=== PATIENT | male | born 1985 | race African-American/Black ===

== ENCOUNTER 2019-04-03 07:36 | Inpatient (IN) | payer OTHER ==
[2019-04-03] MEDS ORDERED: SODIUM CHLORIDE 0.9% 1,000 ML IV STA (08:19)
[2019-04-03] MEDS ORDERED: ONDANSETRON 4 MG/2 ML VIAL IVP STA (08:19)
[2019-04-03 08:49] LABS: Basophils # (A) 0.1 k/uL (0-0.2); Basophils % (A) 1 %; Eosinophils # (A) 0.2 k/uL (0-0.7); Eosinophils % (A) 3 %; HCT 25.3 % (39.0-53.0); HGB 8.7 gm/dL (13.0-17.5); Lymphocytes # (A) 1.5 k/uL (1.0-4.8); Lymphocytes % (A) 27 %; MCH 27.2 pg (25.0-35.0); MCHC 34.2 g/dL (31.0-37.0); MCV 79.8 fL (80.0-100.0); Mean Platelet Volume 7.2; Monocytes # (A) 0.5 k/uL (0-1.0); Monocytes % (A) 10 %; Neutrophils % (A) 56 %; Platelet Count 199 k/uL (150-450); RBC 3.18 m/uL (4.30-5.90); RDW 14.3 % (11.5-15.5); WBC 5.4 k/uL (3.8-10.6)
[2019-04-03 09:05] LABS: Albumin 3.5 g/dL (3.5-5.0); Calcium 6.9 mg/dL (8.4-10.2); Potassium 4.4 mmol/L (3.5-5.1); Total Bilirubin 0.2 mg/dL (0.2-1.3); Total Protein 8.2 g/dL (6.3-8.2)
--- NOTE | 2019-04-03 10:00 | XR ---
KUB and chest x-ray HISTORY: Hypertension, nausea and abdominal pain Frontal KUB is submitted on 2 images, correlation chest x-ray same day There are calcifications within the pelvis which may be related to vas deferens. Probable phleboliths also noted. There are air-fluid levels without bowel distention. No pneumoperitoneum. Lungs are clear. Heart is enlarged. No pneumothorax or pleural effusion. IMPRESSION: Findings may be due to enteritis or ileus. Cardiomegaly.
--- NOTE | 2019-04-03 13:04 | ED ---
General Adult HPI - General Chief complaint: Recheck/Abnormal Lab/Rx Stated complaint: elevated BP Time Seen by Provider: 04/03/19 08:05 Source: patient, family, RN notes reviewed, old records reviewed Mode of arrival: ambulatory Limitations: no limitations - History of Present Illness Initial comments: This is a 33-year-old male who is from out of town who presents with complaints of elevated blood pressure. He also states he generally does not feel well potentially nauseated. No overt chest pain no overt fevers chills or sweats he did have peripheral edema which his family states is improved the. No cough or phlegm production no other modifying factors at this time - Related Data Home Medications Medication Instructions Recorded Confirmed Aspirin 81 mg PO DAILY 04/03/19 04/03/19 Atorvastatin Calcium [Lipitor] 40 mg PO HS 04/03/19 04/03/19 Bumetanide [BUMEX] 4 mg PO BID 04/03/19 04/03/19 Carvedilol [Coreg] 25 mg PO BID 04/03/19 04/03/19 Dovato 50-300 Mg 1 tab PO DAILY 04/03/19 04/03/19 Ergocalciferol [Vitamin D2] 50,000 unit PO Q7D 04/03/19 04/03/19 Glucagon Emergency Kit 1 mg IM ONCE PRN 04/03/19 04/03/19 Glucose 1 Gram Chew 1 gram PO TID PRN 04/03/19 04/03/19 Insulin Glargine,Hum.rec.anlog 12 unit SQ DAILY 04/03/19 04/03/19 [Basaglar Kwikpen U-100] Insulin Lispro [Admelog Solostar] See Protocol SQ AC-SUPPER 04/03/19 04/03/19 NIFEdipine [Adalat cc] 90 mg PO Q12H 04/03/19 04/03/19 Omeprazole [PriLOSEC] 40 mg PO DAILY 04/03/19 04/03/19 Ondansetron Odt [Zofran Odt] 8 mg PO Q8HR PRN 04/03/19 04/03/19 SUMAtriptan SUCCINATE [Imitrex] 50 mg PO BID PRN 04/03/19 04/03/19 Sodium Bicarbonate Tab 1,950 mg PO BID 04/03/19 04/03/19 diphenhydrAMINE [Benadryl] 50 mg PO DAILY PRN 04/03/19 04/03/19 hydrALAZINE HCL [Apresoline] 100 mg PO TID 04/03/19 04/03/19 Allergies Allergy/AdvReac Type Severity Reaction Status Date / Time Penicillins Allergy Rash/Hives Verified 04/03/19 07:54 Review of Systems ROS Statement: Those systems with pertinent positive or pertinent negative responses have been documented in the HPI. ROS Other: All systems not noted in ROS Statement are negative. Past Medical History Past Medical History: Hypertension Additional Past Medical History / Comment(s): Anemia, renal failure, hiv History of Any Multi-Drug Resistant Organisms: None Reported Past Surgical History: No Surgical Hx Reported Past Psychological History: No Psychological Hx Reported Smoking Status: Never smoker Past Alcohol Use History: None Reported General Exam - General Exam Comments Initial Comments: This is a well-developed well-nourished awake alert oriented 3 male Limitations: no limitations General appearance: alert, lethargic Head exam: Present: atraumatic, normocephalic, normal inspection Eye exam: Present: normal appearance, PERRL, EOMI. Absent: scleral icterus, conjunctival injection, periorbital swelling ENT exam: Present: normal exam, mucous membranes moist Neck exam: Present: normal inspection. Absent: tenderness, meningismus, lymp hadenopathy Respiratory exam: Present: normal lung sounds bilaterally. Absent: respiratory distress, wheezes, rales, rhonchi, stridor Cardiovascular Exam: Present: regular rate, normal rhythm, normal heart sounds. Absent: systolic murmur, diastolic murmur, rubs, gallop, clicks GI/Abdominal exam: Present: soft, normal bowel sounds. Absent: distended, tenderness, guarding, rebound, rigid Extremities exam: Present: full ROM, normal capillary refill, pedal edema. Absent: tenderness, joint swelling, calf tenderness Back exam: Present: normal inspection Neurological exam: Present: alert, oriented X3, CN II-XII intact Psychiatric exam: Present: normal affect, normal mood Skin exam: Present: warm, dry, intact, normal color. Absent: rash Course Vital Signs 04/03/19 04/03/19 04/03/19 07:36 11:41 13:14 Temperature 98.0 F Pulse Rate 74 100 109 H Respiratory 16 18 18 Rate Blood Pressure 146/82 130/83 125/80 O2 Sat by Pulse 99 96 99 Oximetry Medical Decision Making - Medical Decision Making Did discuss findings with patient family as well as did review the materials from [facility] where the patient did leave AMA yesterday. He is agreed to stay in hospital today for evaluation by nephrology for dialysis. I did discuss case with Dr. Hansen. - Lab Data Result diagrams: 04/03/19 08:30 04/03/19 08:30 Lab Results 04/03/19 04/03/19 04/03/19 Range/Units 08:30 08:30 08:30 WBC 5.4 (3.8-10.6) k/uL RBC 3.18 L (4.30-5.90) m/uL Hgb 8.7 L (13.0-17.5) gm/dL Hct 25.3 L (39.0-53.0) % MCV 79.8 L (80.0-100.0) fL MCH 27.2 (25.0-35.0) pg MCHC 34.2 (31.0-37.0) g/dL RDW 14.3 (11.5-15.5) % Plt Count 199 (150-450) k/uL Neutrophils % 56 % Lymphocytes % 27 % Monocytes % 10 % Eosinophils % 3 % Basophils % 1 % Neutrophils # 3.0 (1.3-7.7) k/uL Lymphocytes # 1.5 (1.0-4.8) k/uL Monocytes # 0.5 (0-1.0) k/uL Eosinophils # 0.2 (0-0.7) k/uL Basophils # 0.1 (0-0.2) k/uL Sodium 136 L (137-145) mmol/L Potassium 4.4 (3.5-5.1) mmol/L Chloride 104 (98-107) mmol/L Carbon Dioxide 19 L (22-30) mmol/L Anion Gap 13 mmol/L BUN 81 H (9-20) mg/dL Creatinine 9.80 H* (0.66-1.25) mg/dL Est GFR (CKD-EPI)AfAm 7 (>60 ml/min/1.73 sqM) Est GFR (CKD-EPI)NonAf 6 (>60 ml/min/1.73 sqM) Glucose 140 H (74-99) mg/dL Calcium 6.9 L (8.4-10.2) mg/dL Magnesium 1.0 L (1.6-2.3) mg/dL Total Bilirubin 0.2 (0.2-1.3) mg/dL AST 29 (17-59) U/L ALT 18 L (21-72) U/L Alkaline Phosphatase 74 (38-126) U/L Creatine Kinase 761 H (55-170) U/L Troponin I 0.033 (0.000-0.034) ng/mL Total Protein 8.2 (6.3-8.2) g/dL Albumin 3.5 (3.5-5.0) g/dL Lipase 334 H (23-300) U/L Disposition Clinical Impression: Acute renal failure (ARF) Disposition: ADMITTED IP TO THIS [facility] Condition: Serious Referrals: Nonstaff,Physician [Primary Care Provider] - 1-2 days
[2019-04-03] MEDS ORDERED: NALOXONE 0.4 MG/ML 1 ML VIAL IV PRN (14:06)
[2019-04-03] MEDS ORDERED: diphenhydrAMINE 50 MG CAP PO PRN (14:09)
[2019-04-03] MEDS ORDERED: DEXTROSE 4 GM CHEWABLE PO PRN (14:09)
[2019-04-03] MEDS ORDERED: SUMAtriptan SUCCINATE 50 MG TAB PO PRN (14:09)
[2019-04-03 15:59] VITALS: BMI 24.4
[2019-04-03 16:38] LABS: Glucose,Whole Blood 304 mg/dL (75-99)
[2019-04-03] MEDS: INSULIN ASPART (NovoLOG) 100 UNIT/ML VIAL SQ SCH ×2 (17:11→21:14)
[2019-04-03] MEDS: NIFEdipine XL 90 MG TAB.ER.24 PO SCH ×2 (18:22→21:16)
[2019-04-03] MEDS: CARVEDILOL 12.5 MG TAB PO SCH (18:24)
[2019-04-03] MEDS: hydrALAZINE HCL 50 MG TAB PO SCH ×2 (18:24→21:16)
[2019-04-03] MEDS: SODIUM BICARBONATE TAB 650 MG TAB PO SCH (20:02)
[2019-04-03] MEDS: BUMETANIDE 2MG PO SCH (20:02)
[2019-04-03 20:04] LABS: Glucose,Whole Blood 62 mg/dL (75-99)
[2019-04-03 20:21] LABS: Glucose,Whole Blood 80 mg/dL (75-99)
[2019-04-03] MEDS: ATORVASTATIN 40 MG TAB PO SCH (21:16)
[2019-04-04 07:10] LABS: Glucose,Whole Blood 282 mg/dL (75-99)
[2019-04-04] MEDS: OMEPRAZOLE 40 MG PO SCH (07:31)
[2019-04-04] MEDS: BUMETANIDE 2MG PO SCH (07:31)
[2019-04-04] MEDS: DOVATO PO SCH (07:31)
[2019-04-04] MEDS: SODIUM BICARBONATE TAB 650 MG TAB PO SCH ×2 (07:31→20:08)
[2019-04-04] MEDS: ASPIRIN 81 MG PO SCH (07:31)
[2019-04-04] MEDS: CARVEDILOL 12.5 MG TAB PO SCH ×2 (07:32→17:40)
[2019-04-04] MEDS: hydrALAZINE HCL 50 MG TAB PO SCH ×3 (07:33→22:35)
[2019-04-04] MEDS: INSULIN ASPART (NovoLOG) 100 UNIT/ML VIAL SQ SCH ×5 (07:33→21:16)
[2019-04-04] MEDS: INSULIN DETEMIR (LEVEMIR) 100 UNIT/ML SYR SQ SCH ×2 (07:33→07:38)
[2019-04-04] MEDS: NIFEdipine XL 90 MG TAB.ER.24 PO SCH ×2 (07:33→22:28)
[2019-04-04] MEDS: ONDANSETRON ODT 8 MG TAB.RAPDIS PO PRN (07:43)
[2019-04-04] MEDS ORDERED: ERGOCALCIFEROL 50,000 UNIT CAP PO SCH (09:00)
--- NOTE | 2019-04-04 10:36 | P.HPIM ---
History of Present Illness H&P Date: 04/04/19 Chief Complaint: hypertension, nausea, fatigue Emilio Camargo is a 33 yo M with PMH of CKD4, HIV, HTN, HLD, anemia of CKD who presents for hypertension, fatigue, nausea and leg swelling. 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 He states he continued to take his bumex but his BP remained persistently elevated and he was having headaches so came back to the ED. He states he was diagnosed with renal disease and HIV around the same time approx 3 years ago and has been on his current bumex dose for a few months. He states his viral load is undetectable. In the ED initial BP 146/82, Cr 9.8, CK 760 Hgb 8.7. He was given IVF and admitted to medicine. Review of Systems All systems: negative Constitutional: Reports fatigue, Reports malaise, Denies chills, Denies fever Eyes: denies blurred vision, denies pain Ears, nose, mouth and throat: Denies headache, Denies sore throat Cardiovascular: Reports leg edema, Denies chest pain, Denies shortness of breath Respiratory: Denies cough Gastrointestinal: Reports loss of appetite, Reports nausea, Denies abdominal pain, Denies diarrhea, Denies vomiting Musculoskeletal: Denies myalgias Integumentary: Denies pruritus, Denies rash Neurological: Reports headaches, Denies numbness, Denies weakness Psychiatric: Denies anxiety, Denies depression Endocrine: Denies fatigue, Denies weight change Past Medical History Past Medical History: Diabetes Mellitus, GERD/Reflux, Hyperlipidemia, Hypertension, Renal Disease Additional Past Medical History / Comment(s): HIV diagnosed approximately one year ago, 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 History of Any Multi-Drug Resistant Organisms: None Reported Past Surgical History: No Surgical Hx Reported Additional Past Surgical History / Comment(s): Kidney biopsy without anesthesia. Additional Past Anesthesia/Blood Transfusion Reaction / Comment(s): Pt has never had anesthesia. He has had blood transfusion-no reaction. Past Psychological History: No Psychological Hx Reported Additional Psychological History / Comment(s): Pt resides in [place] and is her visiting family for 3 weeks-he has 2 more weeks left. Smoking Status: Never smoker Past Alcohol Use History: None Reported Past Drug Use History: None Reported - Past Family History Father History Unknown: Yes Mother Family Medical History: No Reported History Additional Family Medical History / Comment(s): Mother is healthy. Medications and Allergies Home Medications Medication Instructions Recorded Confirmed Type Aspirin 81 mg PO DAILY 04/03/19 04/03/19 History Atorvastatin Calcium [Lipitor] 40 mg PO HS 04/03/19 04/03/19 History Bumetanide [BUMEX] 4 mg PO BID 04/03/19 04/03/19 History Carvedilol [Coreg] 25 mg PO BID 04/03/19 04/03/19 History Dovato 50-300 Mg 1 tab PO DAILY 04/03/19 04/03/19 History Ergocalciferol [Vitamin D2] 50,000 unit PO Q7D 04/03/19 04/03/19 History Glucagon Emergency Kit 1 mg IM ONCE PRN 04/03/19 04/03/19 History Glucose 1 Gram Chew 1 gram PO TID PRN 04/03/19 04/03/19 History Insulin Glargine,Hum.rec.anlog 12 unit SQ DAILY 04/03/19 04/03/19 History [Breezyaglherman Shaw U-100] Insulin Lispro [Admelog Solostar] See Protocol SQ AC-SUPPER 04/03/19 04/03/19 History NIFEdipine [Adalat cc] 90 mg PO Q12H 04/03/19 04/03/19 History Omeprazole [PriLOSEC] 40 mg PO DAILY 04/03/19 04/03/19 History Ondansetron Odt [Zofran Odt] 8 mg PO Q8HR PRN 04/03/19 04/03/19 History SUMAtriptan SUCCINATE [Imitrex] 50 mg PO BID PRN 04/03/19 04/03/19 History Sodium Bicarbonate Tab 1,950 mg PO BID 04/03/19 04/03/19 History diphenhydrAMINE [Benadryl] 50 mg PO DAILY PRN 04/03/19 04/03/19 History hydrALAZINE HCL [Apresoline] 100 mg PO TID 04/03/19 04/03/19 History Allergies Allergy/AdvReac Type Severity Reaction Status Date / Time Penicillins Allergy Rash/Hives Verified 04/03/19 07:54 Physical Exam Vitals: Vital Signs Temp Pulse Pulse Resp BP BP Pulse Ox 04/04/19 07:19 98.2 F 104 H 17 145/85 94 L 04/04/19 02:09 97.8 F 87 17 151/90 98 04/03/19 18:57 98.5 F 98 16 155/89 99 04/03/19 16:39 98.4 F 96 16 140/86 99 04/03/19 14:43 104 H 17 134/93 98 04/03/19 13:14 109 H 18 125/80 99 04/03/19 11:41 100 18 130/83 96 Intake and Output 04/03/19 04/04/19 04/04/19 22:59 06:59 14:59 Intake Total 300 Balance 300 Intake: Oral 300 Other: Voiding Method Toilet # Voids 1 1 General: well nourished, well developed, NAD. Vitals reviewed Eyes: PERRL, EOMI, conjunctiva normal HENT: normocephalic, mucus membranes moist Neck: supple, no JVD Lungs: normal respiratory effort, no wheezes or rales CV: Regular rate and rhythm, no murmur. Peripheral pulses 2+. BLE with 2+ edema Abdomen: soft, nondistended, no organomegaly Lymph: no cervical or axillary LAD Skin: warm and dry. Neuro: A&Ox3, normal mood and affect Results CBC & Chem 7: 04/03/19 08:30 04/03/19 08:30 Labs: Abnormal Lab Results - Last 24 Hours (Table) 04/03/19 04/03/19 04/04/19 Range/Units 16:36 19:58 07:08 POC Glucose (mg/dL) 304 H 62 L 282 H (75-99) mg/dL Thrombosis Risk Factor Assmnt - Choose All That Apply Any of the Below Risk Factors Present?: No Other Risk Factors: No Other congenital or acquired thrombophilia - If yes, enter type in comment: No Thrombosis Risk Factor Assessment Level: Very Low Risk Assessment and Plan (1) ESRD (end stage renal disease) Current Visit: Yes Status: Acute Code(s): N18.6 - END STAGE RENAL DISEASE SNOMED Code(s): 03193880 (2) T2DM (type 2 diabetes mellitus) Current Visit: Yes Status: Acute Code(s): E11.9 - TYPE 2 DIABETES MELLITUS WITHOUT COMPLICATIONS SNOMED Code(s): 48363336 (3) Hypertension associated with stage 4 chronic kidney disease due to type 2 diabetes mellitus Current Visit: Yes Status: Acute Code(s): E11.22 - TYPE 2 DIABETES MELLITUS W DIABETIC CHRONIC KIDNEY DISEASE; I12.9 - HYPERTENSIVE CHRONIC KIDNEY DISEASE W STG 1-4/UNSP CHR KDNY; N18.4 - CHRONIC KIDNEY DISEASE, STAGE 4 (SEVERE) SNOMED Code(s): 507637186062590 (4) Anemia in CKD (chronic kidney disease) Current Visit: Yes Status: Acute Code(s): N18.9 - CHRONIC KIDNEY DISEASE, UNSPECIFIED; D63.1 - ANEMIA IN CHRONIC KIDNEY DISEASE SNOMED Code(s): 875018779 (5) Hyperlipidemia Current Visit: Yes Status: Acute Code(s): E78.5 - HYPERLIPIDEMIA, UNSPECIFIED SNOMED Code(s): 86796999 (6) Acute renal failure (ARF) Current Visit: Yes Status: Acute Code(s): N17.9 - ACUTE KIDNEY FAILURE, UNSPECIFIED SNOMED Code(s): 88720769 Plan: 1. Acute renal failure on CKD4. Nephrology consulted. Increase home bumex to 2 mg tid. Eval for HD 2. T2DM. 12 U levemir, sliding scale 3. HTN in CKD. Continue coreg and nifedipine 4. HIV. Continue antiretroviral 5. HLD. Continue lipitor DVT prophylaxis SCDs
--- NOTE | 2019-04-04 11:21 | US ---
EXAMINATION TYPE: US kidneys/renal and bladder DATE OF EXAM: 04/04/2019 COMPARISON: NONE CLINICAL HISTORY: RF. Diabetic, renal failure per patient who resides in [place] and is treated the for renal failure with history of recent renal biopsy. EXAM MEASUREMENTS: Right Kidney: 13.1 x 7.5 x 5.0 cm Left Kidney: 12.3 x 6.0 x 5.8 cm Post Void Residual Volume: not assessed on inpatient Right Kidney: abnormally hyperechoic to liver; thickened cortex Left Kidney: abnormally hyperechoic to spleen; thickened cortex Bladder: abnormally thickened wall Bilateral Jets seen: not seen after 3 minute observation There is no evidence for hydronephrosis at this point in time. IMPRESSION: 1. Signal change through the bilateral kidneys. No hydronephrosis is evident. 2. Urinary bladder wall thickening may be present.
[2019-04-04 11:33] LABS: Glucose,Whole Blood 126 mg/dL (75-99)
[2019-04-04] MEDS: BUMETANIDE 0.25 MG/ML 10 ML VIAL IV SCH ×3 (12:50→21:15)
[2019-04-04 16:26] LABS: Glucose,Whole Blood 294 mg/dL (75-99)
[2019-04-04] MEDS ORDERED: HYDROcodone/APAP 5-325MG 1 EACH TAB PO PRN (17:22)
[2019-04-04] MEDS ORDERED: ACETAMINOPHEN TAB 325 MG TAB PO PRN (17:22)
[2019-04-04 20:45] LABS: Glucose,Whole Blood 216 mg/dL (75-99)
[2019-04-04] MEDS: ATORVASTATIN 40 MG TAB PO SCH (21:14)
[2019-04-04 21:17] VITALS: RESP 18
--- NOTE | 2019-04-04 22:39 | CONS ---
CONSULTATION REASON FOR CONSULT: Renal failure. HISTORY OF PRESENT ILLNESS: Patient is a 33-year-old -[place] Citizen male who has an underlying history of chronic kidney disease, NKF stage V, secondary to chronic GN. 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 Patient states he was supposed to start dialysis shortly. At this time he does not have any access in his arm. He was admitted to the hospital with uncontrolled hypertension. Patient also complained of increased fatigue, some nausea and increased lower extremity edema. Patient also has an underlying history of HIV. Currently his viral load is undetectable. His creatinine was 9.8 mg/dL. We do not have any previous labs for comparison. Currently patient has good urine output. He states he is feeling better. His blood pressure is better controlled. PAST MEDICAL HISTORY: 1. CKD, stage V. 2. HIV. 3. Type 1 diabetes. 4. Gastroesophageal reflux disease. 5. Hyperlipidemia. 6. Hypertension. 7. Peripheral neuropathy. 8. Migraines. PAST SURGICAL HISTORY: Kidney biopsy. SOCIAL HISTORY: Negative for smoking, drug abuse or alcohol abuse. MEDICATIONS: Medications prior to admission included: 1. Lipitor. 2. Bumex. 3. Coreg. 4. Vitamin D2. 5. Nifedipine. 6. Prilosec. 7. Zofran. 8. Imitrex. 9. Sodium bicarb. 10.Benadryl. 11.Hydralazine. ALLERGIES: ALLERGIES include PENICILLIN, which causes rash and hives. PHYSICAL EXAMINATION: Patient is comfortable, awake, alert, oriented x3, not in any acute distress. Blood pressure was 145/85, heart rate 104 per minute. He is afebrile. EXAMINATION OF THE HEART: S1 and S2. EXAMINATION OF LUNGS: Bilateral breath sounds are heard. No crackles or wheezing is heard. ABDOMEN: Soft, non-tender. Examination of lower extremities shows edema 1+, mainly in the ankles. SPOOL MAKER exam is grossly intact. No asterixis seen. LABS: Sodium 136, potassium 4.4. CO2 is 19. BUN of 81, serum creatinine 9.8, magnesium 1.0. ASSESSMENT: 1. Chronic kidney disease, NKF stage V, secondary to chronic glomerulonephritis, status post biopsy per patient. He does not have an access yet to start renal replacement therapy; however, he states he will be doing hemodialysis down the road. At this time patient denies any nausea or vomiting. I have advised him that if his renal function does not improve over the next few days or if he continues to feel sick, we will need to start renal replacement therapy this admission and then patient can transferred to his home dialysis unit when he goes back to [place]. We will need to place an IJ PermCath. 2. Hypertension, partly volume-sensitive, currently controlled. 3. Metabolic acidosis, maintained on oral sodium bicarb. 4. Gastroesophageal reflux disease. 5. Type 1 diabetes with neuropathy. 6. Migraines, maintained on Imitrex. PLAN: Continue current antihypertensive regimen. Repeat labs in a.m. Patient has received IV fluids. At this time I will maintain him off of IV fluids. We will check an ultrasound of the kidneys and repeat labs in a.m. He can be maintained on Bumex that patient normally takes at home. Start dialysis if patient continues to complain of fatigue and has a decline in his appetite. Thank you for this consultation. Will continue to follow the patient with you during his hospitalization. MMMARKL / IJN: [id number] /
[2019-04-05 07:16] LABS: Glucose,Whole Blood 336 mg/dL (75-99)
[2019-04-05] MEDS: INSULIN DETEMIR (LEVEMIR) 100 UNIT/ML SYR SQ SCH (07:41)
[2019-04-05 07:42] VITALS: BP 135/78; PULSE 99; TEMP 98.5
[2019-04-05] MEDS: hydrALAZINE HCL 50 MG TAB PO SCH (07:42)
[2019-04-05] MEDS: INSULIN ASPART (NovoLOG) 100 UNIT/ML VIAL SQ SCH (07:42)
[2019-04-05] MEDS: CARVEDILOL 12.5 MG TAB PO SCH (07:42)
[2019-04-05] MEDS: NIFEdipine XL 90 MG TAB.ER.24 PO SCH (07:42)
[2019-04-05] MEDS: OMEPRAZOLE 40 MG PO SCH (07:43)
[2019-04-05] MEDS: ONDANSETRON ODT 8 MG TAB.RAPDIS PO PRN (07:43)
[2019-04-05] MEDS: SODIUM BICARBONATE TAB 650 MG TAB PO SCH (07:44)
[2019-04-05] MEDS: DOVATO PO SCH (07:44)
[2019-04-05] MEDS: ASPIRIN 81 MG PO SCH (07:45)
[2019-04-05] MEDS: BUMETANIDE 0.25 MG/ML 10 ML VIAL IV SCH (07:45)
--- NOTE | 2019-04-05 08:12 | P.PN ---
Subjective Progress Note Date: 04/05/19 Principal diagnosis: This is a 33-year-old male with biopsy proven chronic kidney disease stage V, who was admitted with uncontrolled hypertension. He also complains of on-and-off nausea for the last 1-1/2 years which is unchanged. Denies any cough shortness of breath, numbness tingling fatigue tiredness. He is visiting here from [place] but originally from this area. He plans to stay here for 1 more week before he returns. 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 He is opted for hemodialysis as he feels that he had to travel frequently. Maintain map he has been performed. He is also known to have had HIV in the past. He is also known with diabetes type 1. Objective - Vital Signs Vital signs: Vital Signs Temp 98.5 F 04/05/19 07:41 Pulse 99 04/05/19 07:41 Resp 18 04/05/19 07:41 BP 135/78 04/05/19 07:41 Pulse Ox 98 04/05/19 07:41 Intake & Output 04/04/19 04/05/19 04/05/19 18:59 06:59 18:59 Intake Total 240 180 Balance 240 180 Intake: Oral 240 180 Other: Voiding Method Toilet # Voids 2 2 On examination is awake alert oriented comfortable HEENT exam no JVP neck is supple no facial asymmetry Lungs are clear to auscultation good air entry bilaterally Heart sounds are unremarkable for any murmur rub gallop Abdomen soft nontender no organomegaly status masses Extremity exam was no edema Neurologically awake alert oriented no asterixis no focal motor deficit. - Labs CBC & Chem 7: 04/03/19 08:30 04/03/19 08:30 Labs: Abnormal Lab Results - Last 24 Hours (Table) 04/04/19 04/04/19 04/04/19 Range/Units 11:31 16:24 20:34 POC Glucose (mg/dL) 126 H 294 H 216 H (75-99) mg/dL 04/05/19 Range/Units 07:04 POC Glucose (mg/dL) 336 H (75-99) mg/dL Assessment and Plan Assessment: Impression 1. Chronic kidney disease stage V needs dialysis to be started imminently. He requests that he be discharged as his nausea has been chronic for the last 1-1-1/2 years. He is able to have his full has not lost weight has no itching or numbness and 10 Reportedly. 2. Blood pressure is controlled 3. Acidosis currently on sodium bicarb. 4. Diabetes mellitus, blood sugar is somewhat high in the 200 300 range. 5. Anemia hemoglobin is 8.7 Recommendation 1. He could be discharged with the qualification that he should return to the ER if he continues to have nausea vomiting. 2. He has been educated about peritoneal dialysis and if necessary we can start him on urgent PD until his fistula is placed and matures in 3-4 months 3. No labs are available before discharge she should get the labs. 4. Check iron saturation and load him with iron if necessary before discharge
[2019-04-05] MEDS ORDERED: TORSEMIDE 20 MG TAB PO SCH (09:00)
[2019-04-05 09:08] LABS: Calcium 6.6 mg/dL (8.4-10.2)
[2019-04-05 16:26] LABS: Iron Saturation 28.24 (15.00-50.00)
== END 2019-04-05 10:28 | disposition left against medical advice (07) | DRG 682 ==
LOC: EC 07:36 → 4SSUR 14:06
PROVIDERS: ADMIT Family Medicine; ATTEND Family Medicine
DX: N17.9 Acute kidney failure, unspecified (principal); E10.10 Type 1 diabetes mellitus with ketoacidosis without coma; I12.0 Hypertensive chronic kidney disease with stage 5 chronic kidney disease or end stage renal disease; N18.5 Chronic kidney disease, stage 5; E10.22 Type 1 diabetes mellitus with diabetic chronic kidney disease; E10.42 Type 1 diabetes mellitus with diabetic polyneuropathy; D63.1 Anemia in chronic kidney disease; E78.5 Hyperlipidemia, unspecified; G43.909 Migraine, unspecified, not intractable, without status migrainosus; K21.9 Gastro-esophageal reflux disease without esophagitis; Z21 Asymptomatic human immunodeficiency virus [HIV] infection status; Z79.4 Long term (current) use of insulin; Z79.82 Long term (current) use of aspirin; Z79.899 Other long term (current) drug therapy; Z88.0 Allergy status to penicillin
CPT/HCPCS: 36415; 71046; 74018; 76770; 80048; 80053; 82550; 83540; 83550; 83690; 83735; 84484; 85025; 93005; 96361; 96374; 99285

== ENCOUNTER 2019-04-07 13:48 | Inpatient (IN) | payer OTHER ==
[2019-04-07] MEDS ORDERED: SODIUM CHLORIDE 0.9% 1,000 ML IV STA (15:44)
--- NOTE | 2019-04-07 16:09 | ED ---
General Adult HPI - General Chief complaint: Shortness of Breath Stated complaint: Nausea, Abd Pain Time Seen by Provider: 04/07/19 15:32 Source: patient, RN notes reviewed, old records reviewed Mode of arrival: wheelchair Limitations: no limitations - History of Present Illness Initial comments: Patient is a 33-year-old male with a history of diabetes, hyperlipidemia, hypertension, and end-stage renal disease. He also has history of HIV diagnosed approximately one year ago. He presents today after leaving AMA 2 days ago. That time was found to have acute renal failure and they have suggested dialysis. His chief complaint today is some shortness of breath and slight cough. Patient states that he has had no significant fevers or chills. Patient reports that he is originally from [place] and is staying here on vacation. He states he plans return in approximately 2 weeks to [place], [place]. She reports a has had normal urination. Reports normal stools. - Related Data Home Medications Medication Instructions Recorded Confirmed Aspirin 81 mg PO DAILY 04/03/19 04/07/19 Atorvastatin Calcium [Lipitor] 40 mg PO HS 04/03/19 04/07/19 Bumetanide [BUMEX] 4 mg PO BID 04/03/19 04/07/19 Carvedilol [Coreg] 25 mg PO BID 04/03/19 04/07/19 Dovato 50-300 Mg 1 tab PO DAILY 04/03/19 04/07/19 Ergocalciferol [Vitamin D2] 50,000 unit PO FR 04/03/19 04/07/19 Glucagon Emergency Kit 1 mg IM ONCE PRN 04/03/19 04/07/19 Glucose 1 Gram Chew 1 gram PO TID PRN 04/03/19 04/07/19 Insulin Glargine,Hum.rec.anlog 12 unit SQ DAILY 04/03/19 04/07/19 [Basaglar Kwikpen U-100] Insulin Lispro [Admelog Solostar] See Protocol SQ AC-SUPPER 04/03/19 04/07/19 NIFEdipine [Adalat cc] 90 mg PO Q12H 04/03/19 04/07/19 Omeprazole [PriLOSEC] 40 mg PO DAILY 04/03/19 04/07/19 Ondansetron Odt [Zofran Odt] 8 mg PO Q8HR PRN 04/03/19 04/07/19 SUMAtriptan SUCCINATE [Imitrex] 50 mg PO BID PRN 04/03/19 04/07/19 Sodium Bicarbonate Tab 1,950 mg PO BID 04/03/19 04/07/19 diphenhydrAMINE [Benadryl] 50 mg PO DAILY PRN 04/03/19 04/07/19 hydrALAZINE HCL [Apresoline] 100 mg PO TID 04/03/19 04/07/19 Allergies Allergy/AdvReac Type Severity Reaction Status Date / Time Penicillins Allergy Rash/Hives Verified 04/07/19 16:45 Review of Systems ROS Statement: Those systems with pertinent positive or pertinent negative responses have been documented in the HPI. ROS Other: All systems not noted in ROS Statement are negative. 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 History of Any Multi-Drug Resistant Organisms: None Reported Past Surgical History: No Surgical Hx Reported Additional Past Surgical History / Comment(s): Kidney biopsy without anesthesia. Additional Past Anesthesia/Blood Transfusion Reaction / Comment(s): Pt has never had anesthesia. He has had blood transfusion-no reaction. Past Psychological History: No Psychological Hx Reported Smoking Status: Never smoker Past Alcohol Use History: None Reported Past Drug Use History: None Reported - Past Family History Father History Unknown: Yes Mother Family Medical History: No Reported History Additional Family Medical History / Comment(s): Mother is healthy. General Exam - General Exam Comments Initial Comments: 33-year-old male. he was very tired, sleepy on exam. He appears in no distress. Limitations: no limitations General appearance: alert, in no apparent distress Head exam: Present: atraumatic, normocephalic, normal inspection Eye exam: Present: normal appearance, PERRL, EOMI. Absent: scleral icterus, conjunctival injection, periorbital swelling ENT exam: Present: normal exam, mucous membranes moist Neck exam: Present: normal inspection. Absent: tenderness, meningismus, lymphadenopathy Respiratory exam: Present: decreased breath sounds (slight diminished lung sounds). Absent: normal lung sounds bilaterally, respiratory distress, wheezes, rales, rhonchi, stridor Cardiovascular Exam: Present: regular rate, normal rhythm, normal heart sounds. Absent: systolic murmur, diastolic murmur, rubs, gallop, clicks GI/Abdominal exam: Present: soft, normal bowel sounds. Absent: distended, tenderness, guarding, rebound, rigid Extremities exam: Present: normal inspection, full ROM, normal capillary refill, pedal edema (1+ pedal edema bilaterally). Absent: tenderness, joint swelling, calf tenderness Back exam: Present: normal inspection Neurological exam: Present: alert, oriented X3, CN II-XII intact Psychiatric exam: Present: normal affect, normal mood Skin exam: Present: warm, dry, intact, normal color. Absent: rash Course Vital Signs 04/07/19 04/07/19 04/07/19 14:27 16:03 16:24 Temperature 97.8 F Pulse Rate 104 H 102 H Respiratory 18 18 16 Rate Blood Pressure 132/83 147/93 O2 Sat by Pulse 97 97 Oximetry EKG Findings - EKG Comments: EKG Findings:: EKG shows sinus tachycardia, otherwise normal EKG noted. Ventricular rate of 104 bpm. Verbal 166 ms. QRS duration is 88 ms. QT QTc is 370/46 ms. Medical Decision Making - Medical Decision Making Patient is a 33-year-old male with chronic kidney disease, diabetes, HIV. He presents today with cough and shortness of breath. Patient left AMA 2 days ago after apparently not receiving his medications quick enough. Patient at that time was question to be started on dialysis. At this time Patient is found to be in acute renal failure with a GFR 5. Patient's BUN is elevated at 96. Creatinine is 11.09. White blood cell count of 7.6. Hemoglobin of 8.0. Likely from chronic kidney disease. He denies any bloody stools. Patient's chest x- ray shows evidence of an developed right middle lobe pneumonia since his last chest x-ray. Days ago. At this time patient's started on Bactrim for a possibility PCP pneumonia or associated with HIV. Patient also was started on age Antibiotics including vancomycin, cefepime and Levaquin. A consult was placed to nephrology for needing dialysis. Note that patient is on Retroviral therapy. - Lab Data Result diagrams: 04/07/19 15:55 04/07/19 15:55 Lab Results 04/07/19 04/07/19 04/07/19 Range/Units 15:55 15:55 15:55 WBC 7.6 (3.8-10.6) k/uL RBC 2.87 L (4.30-5.90) m/uL Hgb 8.0 L (13.0-17.5) gm/dL Hct 23.3 L (39.0-53.0) % MCV 81.2 (80.0-100.0) fL MCH 27.9 (25.0-35.0) pg MCHC 34.4 (31.0-37.0) g/dL RDW 14.5 (11.5-15.5) % Plt Count 182 (150-450) k/uL Neutrophils % 66 % Lymphocytes % 21 % Monocytes % 8 % Eosinophils % 2 % Basophils % 1 % Neutrophils # 5.0 (1.3-7.7) k/uL Lymphocytes # 1.6 (1.0-4.8) k/uL Monocytes # 0.6 (0-1.0) k/uL Eosinophils # 0.2 (0-0.7) k/uL Basophils # 0.0 (0-0.2) k/uL PT (9.0-12.0) sec INR (<1.2) APTT (22.0-30.0) sec Sodium 133 L (137-145) mmol/L Potassium 5.3 H (3.5-5.1) mmol/L Chloride 100 (98-107) mmol/L Carbon Dioxide 17 L (22-30) mmol/L Anion Gap 16 mmol/L BUN 96 H (9-20) mg/dL Creatinine 11.09 H* (0.66-1.25) mg/dL Est GFR (CKD-EPI)AfAm 6 (>60 ml/min/1.73 sqM) Est GFR (CKD-EPI)NonAf 5 (>60 ml/min/1.73 sqM) Glucose 168 H (74-99) mg/dL Calcium 6.9 L (8.4-10.2) mg/dL Magnesium 1.2 L (1.6-2.3) mg/dL Total Bilirubin 0.2 (0.2-1.3) mg/dL AST 29 (17-59) U/L ALT 24 (21-72) U/L Alkaline Phosphatase 85 (38-126) U/L Troponin I (0.000-0.034) ng/mL NT-Pro-B Natriuret Pep 2160 pg/mL Total Protein 8.0 (6.3-8.2) g/dL Albumin 3.6 (3.5-5.0) g/dL 04/07/19 04/07/19 Range/Units 15:55 15:55 WBC (3.8-10.6) k/uL RBC (4.30-5.90) m/uL Hgb (13.0-17.5) gm/dL Hct (39.0-53.0) % MCV (80.0-100.0) fL MCH (25.0-35.0) pg MCHC (31.0-37.0) g/dL RDW (11.5-15.5) % Plt Count (150-450) k/uL Neutrophils % % Lymphocytes % % Monocytes % % Eosinophils % % Basophils % % Neutrophils # (1.3-7.7) k/uL Lymphocytes # (1.0-4.8) k/uL Monocytes # (0-1.0) k/uL Eosinophils # (0-0.7) k/uL Basophils # (0-0.2) k/uL PT 9.5 (9.0-12.0) sec INR 0.9 (<1.2) APTT 29.1 (22.0-30.0) sec Sodium (137-145) mmol/L Potassium (3.5-5.1) mmol/L Chloride (98-107) mmol/L Carbon Dioxide (22-30) mmol/L Anion Gap mmol/L BUN (9-20) mg/dL Creatinine (0.66-1.25) mg/dL Est GFR (CKD-EPI)AfAm (>60 ml/min/1.73 sqM) Est GFR (CKD-EPI)NonAf (>60 ml/min/1.73 sqM) Glucose (74-99) mg/dL Calcium (8.4-10.2) mg/dL Magnesium (1.6-2.3) mg/dL Total Bilirubin (0.2-1.3) mg/dL AST (17-59) U/L ALT (21-72) U/L Alkaline Phosphatase (38-126) U/L Troponin I 0.016 (0.000-0.034) ng/mL NT-Pro-B Natriuret Pep pg/mL Total Protein (6.3-8.2) g/dL Albumin (3.5-5.0) g/dL - Radiology Data Radiology results: report reviewed Chest x-ray shows evidence of a new developed right middle lobe pneumonia. Evidence of cardiomegaly. No heart failure seen. Disposition Clinical Impression: T2DM (type 2 diabetes mellitus), ESRD (end stage renal disease), Acute renal failure (ARF), Anemia in CKD (chronic kidney disease), HCAP (healthcare- associated pneumonia), HIV (human immunodeficiency virus infection) Disposition: ADMITTED IP TO THIS HOSP Condition: Stable Is patient prescribed a controlled substance at d/c from ED?: No Referrals: Nonstaff,Physician [Primary Care Provider] - 1-2 days Time of Disposition: 17:37
--- NOTE | 2019-04-07 16:47 | XR ---
EXAMINATION TYPE: XR chest 2V DATE OF EXAM: 04/07/2019 COMPARISON: 04/03/2019 HISTORY: Cough TECHNIQUE: Frontal and lateral views of the chest are obtained. FINDINGS: Heart is enlarged. There is no heart failure. There is a mild infiltrate and atelectasis i n the right middle lobe. Left lung is fairly clear. There are no hilar masses. Mediastinum is normal. IMPRESSION: There is new right middle lobe pneumonia compared to old exam. Cardiomegaly. No heart fa ilure seen.
[2019-04-07 16:49] LABS: Basophils % (A) 1 %; Eosinophils # (A) 0.2 k/uL (0-0.7); Eosinophils % (A) 2 %; HCT 23.3 % (39.0-53.0); Lymphocytes # (A) 1.6 k/uL (1.0-4.8); Lymphocytes % (A) 21 %; MCH 27.9 pg (25.0-35.0); MCHC 34.4 g/dL (31.0-37.0); MCV 81.2 fL (80.0-100.0); Mean Platelet Volume 6.8; Monocytes # (A) 0.6 k/uL (0-1.0); Monocytes % (A) 8 %; Neutrophils % (A) 66 %; Platelet Count 182 k/uL (150-450); RBC 2.87 m/uL (4.30-5.90); RDW 14.5 % (11.5-15.5); WBC 7.6 k/uL (3.8-10.6)
[2019-04-07 16:57] LABS: INR 0.9 (<1.2); Partial Thromboplastin Time 29.1 sec (22.0-30.0); Prothrombin Time 9.5 sec (9.0-12.0)
[2019-04-07 17:00] LABS: Albumin 3.6 g/dL (3.5-5.0); Calcium 6.9 mg/dL (8.4-10.2); Magnesium 1.2 mg/dL (1.6-2.3); Potassium 5.3 mmol/L (3.5-5.1); Total Bilirubin 0.2 mg/dL (0.2-1.3)
[2019-04-07] MEDS ORDERED: VANCOMYCIN IV PER PHARMACY 1 EACH MISC MISCELLANE PRN (17:02)
[2019-04-07] MEDS ORDERED: LEVOFLOXACIN 750MG-D5W PMX 750 MG in DEXTROSE/WATER 1 150ML.BAG IVPB STA (17:02)
[2019-04-07] MEDS ORDERED: CEFEPIME 1 GM in SODIUM CHLORIDE 0.9% 50 ML IVPB STA (17:02)
[2019-04-07] MEDS ORDERED: IPRATROPIUM-ALBUTEROL 3 ML NEB INHALATION STA (17:03)
[2019-04-07] MEDS ORDERED: VANCOMYCIN 1,500 MG in SODIUM CHLORIDE 0.9% 250 ML IVPB ONE (17:15)
[2019-04-07] MEDS ORDERED: SULFAMETHOX-TMP 800-160MG 1 EACH TAB PO STA (17:29)
[2019-04-07] MEDS ORDERED: MORPHINE SULFATE 4 MG/ML SYRINGE IV PRN (17:37)
[2019-04-07] MEDS ORDERED: KETOROLAC 30 MG/ML 1 ML VIAL IVP PRN (17:37)
[2019-04-07] MEDS ORDERED: IBUPROFEN 400 MG TAB PO PRN (17:37)
[2019-04-07] MEDS ORDERED: NALOXONE 0.4 MG/ML 1 ML VIAL IV PRN (17:37)
--- NOTE | 2019-04-07 17:42 | ED ---
Medical Decision Making - Lab Data Result diagrams: 04/07/19 15:55 04/07/19 15:55 Lab Results 04/07/19 04/07/19 04/07/19 Range/Units 15:55 15:55 15:55 WBC 7.6 (3.8-10.6) k/uL RBC 2.87 L (4.30-5.90) m/uL Hgb 8.0 L (13.0-17.5) gm/dL Hct 23.3 L (39.0-53.0) % MCV 81.2 (80.0-100.0) fL MCH 27.9 (25.0-35.0) pg MCHC 34.4 (31.0-37.0) g/dL RDW 14.5 (11.5-15.5) % Plt Count 182 (150-450) k/uL Neutrophils % 66 % Lymphocytes % 21 % Monocytes % 8 % Eosinophils % 2 % Basophils % 1 % Neutrophils # 5.0 (1.3-7.7) k/uL Lymphocytes # 1.6 (1.0-4.8) k/uL Monocytes # 0.6 (0-1.0) k/uL Eosinophils # 0.2 (0-0.7) k/uL Basophils # 0.0 (0-0.2) k/uL PT (9.0-12.0) sec INR (<1.2) APTT (22.0-30.0) sec Sodium 133 L (137-145) mmol/L Potassium 5.3 H (3.5-5.1) mmol/L Chloride 100 (98-107) mmol/L Carbon Dioxide 17 L (22-30) mmol/L Anion Gap 16 mmol/L BUN 96 H (9-20) mg/dL Creatinine 11.09 H* (0.66-1.25) mg/dL Est GFR (CKD-EPI)AfAm 6 (>60 ml/min/1.73 sqM) Est GFR (CKD-EPI)NonAf 5 (>60 ml/min/1.73 sqM) Glucose 168 H (74-99) mg/dL Calcium 6.9 L (8.4-10.2) mg/dL Magnesium 1.2 L (1.6-2.3) mg/dL Total Bilirubin 0.2 (0.2-1.3) mg/dL AST 29 (17-59) U/L ALT 24 (21-72) U/L Alkaline Phosphatase 85 (38-126) U/L Troponin I (0.000-0.034) ng/mL NT-Pro-B Natriuret Pep 2160 pg/mL Total Protein 8.0 (6.3-8.2) g/dL Albumin 3.6 (3.5-5.0) g/dL 04/07/19 04/07/19 Range/Units 15:55 15:55 WBC (3.8-10.6) k/uL RBC (4.30-5.90) m/uL Hgb (13.0-17.5) gm/dL Hct (39.0-53.0) % MCV (80.0-100.0) fL MCH (25.0-35.0) pg MCHC (31.0-37.0) g/dL RDW (11.5-15.5) % Plt Count (150-450) k/uL Neutrophils % % Lymphocytes % % Monocytes % % Eosinophils % % Basophils % % Neutrophils # (1.3-7.7) k/uL Lymphocytes # (1.0-4.8) k/uL Monocytes # (0-1.0) k/uL Eosinophils # (0-0.7) k/uL Basophils # (0-0.2) k/uL PT 9.5 (9.0-12.0) sec INR 0.9 (<1.2) APTT 29.1 (22.0-30.0) sec Sodium (137-145) mmol/L Potassium (3.5-5.1) mmol/L Chloride (98-107) mmol/L Carbon Dioxide (22-30) mmol/L Anion Gap mmol/L BUN (9-20) mg/dL Creatinine (0.66-1.25) mg/dL Est GFR (CKD-EPI)AfAm (>60 ml/min/1.73 sqM) Est GFR (CKD-EPI)NonAf (>60 ml/min/1.73 sqM) Glucose (74-99) mg/dL Calcium (8.4-10.2) mg/dL Magnesium (1.6-2.3) mg/dL Total Bilirubin (0.2-1.3) mg/dL AST (17-59) U/L ALT (21-72) U/L Alkaline Phosphatase (38-126) U/L Troponin I 0.016 (0.000-0.034) ng/mL NT-Pro-B Natriuret Pep pg/mL Total Protein (6.3-8.2) g/dL Albumin (3.5-5.0) g/dL Critical Care Time Critical Care Time: Yes Total Critical Care Time: 30 Critical Care Time: Greater than 30 minutes of CC time for managing patient case with Renal failure, Infectious disease, and reviewing labs. Disposition Clinical Impression: T2DM (type 2 diabetes mellitus), ESRD (end stage renal disease), Acute renal failure (ARF), Anemia in CKD (chronic kidney disease), HCAP (healthcare- associated pneumonia), HIV (human immunodeficiency virus infection) Disposition: ADMITTED IP TO THIS [facility] Condition: Stable Referrals: Nonstaff,Physician [Primary Care Provider] - 1-2 days
[2019-04-07] MEDS ORDERED: ONDANSETRON ODT 8 MG TAB.RAPDIS PO PRN (17:43)
[2019-04-07] MEDS ORDERED: SUMAtriptan SUCCINATE 50 MG TAB PO PRN (17:43)
[2019-04-07] MEDS ORDERED: GLUCAGON 1 MG/ML VIAL IM PRN (17:43)
[2019-04-07] MEDS ORDERED: DEXTROSE 4 GM CHEWABLE PO PRN (17:43)
[2019-04-07 19:22] LABS: Appearance,Urine Clear (Clear); Bilirubin,Urine Negative (Negative); Blood,Urine Negative (Negative); Color,Urine Light Yellow; Glucose,Urine (UA) 1+ (Negative); Hyaline Casts,Urine 3 /lpf (0-2); Ketones,Urine Negative (Negative); Leukocyte Esterase,Urine Negative (Negative); Mucus,Urine Rare /hpf; Nitrite,Urine Negative (Negative); PH, Urine 6.5 (5.0-8.0); Protein,Urine 3+ (Negative); RBC,Urine 1 /hpf (0-5); Specific Gravity,Urine 1.011 (1.001-1.035); Urobilinogen,Urine <2.0 mg/dL (<2.0); WBC,Urine 2 /hpf (0-5)
[2019-04-07] MEDS: SODIUM BICARBONATE TAB 650 MG TAB PO SCH (20:52)
[2019-04-07] MEDS: CARVEDILOL 12.5 MG TAB PO SCH ×2 (20:53→20:56)
[2019-04-07] MEDS: hydrALAZINE HCL 50 MG TAB PO SCH (20:53)
[2019-04-07] MEDS: NIFEdipine XL 90 MG TAB.ER.24 PO SCH (20:54)
[2019-04-07] MEDS: ATORVASTATIN 40 MG TAB PO SCH (20:57)
[2019-04-07] MEDS: SODIUM CHLORIDE 0.9% 1,000 ML IV SCH (20:59)
[2019-04-07] MEDS: ONDANSETRON 4 MG/2 ML VIAL IVP PRN (21:24)
[2019-04-08] MEDS ORDERED: ONDANSETRON ODT 4 MG TAB PO PRN (04:23)
[2019-04-08] MEDS: ONDANSETRON 4 MG/2 ML VIAL IVP PRN ×2 (05:48→21:04)
[2019-04-08 07:19] LABS: Glucose,Whole Blood 277 mg/dL (75-99)
[2019-04-08] MEDS ORDERED: ASPIRIN 81 MG PO SCH (09:00)
[2019-04-08] MEDS ORDERED: INSULIN DETEMIR (LEVEMIR) 100 UNIT/ML SYR SQ SCH (09:00)
[2019-04-08] MEDS ORDERED: NON FORMULARY DRUG (Omeprazole 40 MG) PO SCH (09:00)
--- NOTE | 2019-04-08 09:25 | P.CONS ---
History of Present Illness - Reason for Consult Consult date: 04/08/19 HCAP, HIV - History of Present Illness This is a 33-year-old -[place] male from [place] and is here on vacation. He has been here for one-week self-harm plans to stay another 2 weeks. He has a significant past history of HIV diagnosed approximately one year ago and is on Dovato. He states he has not missed any of his doses. He has had follow-up but he does not know his current viral load but believes his n umbers have been stable and undetectable. Patient has brought his medication and to the hospital so he can receive a while admitted. He also has past medical history significant for chronic kidney disease stage V, diabetes mellitus type 1, hypertension, peripheral neuropathy, hyperlipidemia. He has not been started on hemodialysis. Patient was initially seen at [facility] and signed out AMA on April 02. He then presented to [facility] emergency center on April 03 with generalized malaise, nausea. He was found to be in acute renal failure with BUN 81, creatinine 9.8, hemoglobin 8.7. He was admitted to the hospital and seen by nephrology and patient was recommended hemodialysis if numbers did not improve and or his symptoms did not improve. Renal ultrasound revealed signal change to the bilateral kidneys. No hydronephrosis. Urinary bladder wall thickening may be present. Patient signed out AMA on Sunday, April 05. He returned to the emergency center yesterday with complaints of continued malaise, generalized weakness, mild shortness of breath, rare cough. No fever or chills. He has bilateral lower extremity edema which he states he has had for some time. Patient states that he had diarrhea a couple days ago which has resolved. He continues to make urine which he feels one a day is sufficient and he denies any retention issues. Renal function had worsened since his initial presentation currently at 11.09, BUN 96, hemoglobin 8.0, WBC 7.6. Blood sugar 168 on presentation. Sodium 133, potassium 5.3, chloride 100, CO2 17. ProBNP 2160, albumin 3.6. Urinalysis clear, nitrite and leukoesterase negative, glucose 1+, protein 3+. Chest x-ray reveals new right middle lobe pneumonia. Cardiomegaly. No heart failure. Patient has been admitted to the [facility] floor. He has been given cefepime and Levaquin Bactrim and vancomycin in the emergency center and vancomycin has been continued with pharmacy dosing. Review of Systems Constitutional: Reports fatigue, Reports lethargy, Reports poor appetite, Reports weakness, Denies chills, Denies fever Eyes: denies blurred vision, denies pain Ears, nose, mouth and throat: Denies dysphagia, Denies nasal congestion, Denies nasal discharge, Denies vertigo Cardiovascular: Reports chest pain, Reports edema, Reports leg edema, Reports palpitations, Denies dyspnea on exertion, Denies syncope Respiratory: Denies cough, Denies cough with sputum, Denies dyspnea, Denies excessive sputum, Denies hemoptysis, Denies home oxygen, Denies wheezing Gastrointestinal: Reports loss of appetite, Denies abdominal pain, Denies diarrhea, Denies nausea, Denies vomiting Genitourinary: Denies dysuria, Denies urinary frequency, Denies urinary hesitancy, Denies urinary retention Musculoskeletal: Denies frequent falls, Denies gait dysfunction, Denies muscle weakness, Denies myalgias Integumentary: Denies pruritus, Denies rash, Denies wounds Neurological: Denies change in mentation, Denies change in speech, Denies confusion, Denies numbness, Denies weakness Psychiatric: Denies anxiety, Denies depression Endocrine: Denies fatigue, Denies weight change Past Medical History Past Medical History: Diabetes Mellitus, GERD/Reflux, Hyperlipidemia, Hypertension, Renal Disease Additional Past Medical History / Comment(s): HIV diagnosed approximately one year ago, 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 History of Any Multi-Drug Resistant Organisms: None Reported Past Surgical History: No Surgical Hx Reported Additional Past Surgical History / Comment(s): Kidney biopsy without anesthesia. Additional Past Anesthesia/Blood Transfusion Reaction / Comm: Pt has never had anesthesia. He has had blood transfusion-no reaction. Past Psychological History: No Psychological Hx Reported Additional Psychological History / Comment(s): Pt resides in [place] and is here visiting family for 3 weeks-he has 2 more weeks left. Patient is a lifelong nonsmoker. No marijuana or street drug use. 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 No service. Smoking Status: Never smoker Past Alcohol Use History: None Reported Past Drug Use History: None Reported - Past Family History Father History Unknown: Yes Mother Family Medical History: No Reported History Additional Family Medical History / Comment(s): Mother is healthy. Medications and Allergies Home Medications Medication Instructions Recorded Confirmed Type Aspirin 81 mg PO DAILY 04/03/19 04/07/19 History Atorvastatin Calcium [Lipitor] 40 mg PO HS 04/03/19 04/07/19 History Bumetanide [BUMEX] 4 mg PO BID 04/03/19 04/07/19 History Carvedilol [Coreg] 25 mg PO BID 04/03/19 04/07/19 History Dovato 50-300 Mg 1 tab PO DAILY 04/03/19 04/07/19 History Ergocalciferol [Vitamin D2] 50,000 unit PO FR 04/03/19 04/07/19 History Glucagon Emergency Kit 1 mg IM ONCE PRN 04/03/19 04/07/19 History Glucose 1 Gram Chew 1 gram PO TID PRN 04/03/19 04/07/19 History Insulin Glargine,Hum.rec.anlog 12 unit SQ DAILY 04/03/19 04/07/19 History [Basaglar Kwikpen U-100] Insulin Lispro [Admelog Solostar] See Protocol SQ AC-SUPPER 04/03/19 04/07/19 History NIFEdipine [Adalat cc] 90 mg PO Q12H 04/03/19 04/07/19 History Omeprazole [PriLOSEC] 40 mg PO DAILY 04/03/19 04/07/19 History Ondansetron Odt [Zofran Odt] 8 mg PO Q8HR PRN 04/03/19 04/07/19 History SUMAtriptan SUCCINATE [Imitrex] 50 mg PO BID PRN 04/03/19 04/07/19 History Sodium Bicarbonate Tab 1,950 mg PO BID 04/03/19 04/07/19 History diphenhydrAMINE [Benadryl] 50 mg PO DAILY PRN 04/03/19 04/07/19 History hydrALAZINE HCL [Apresoline] 100 mg PO TID 04/03/19 04/07/19 History Allergies Allergy/AdvReac Type Severity Reaction Status Date / Time Penicillins Allergy Rash/Hives Verified 04/07/19 16:45 Physical Exam Vitals: Vital Signs Temp Pulse Pulse Resp BP BP BP 04/08/19 05:06 98.4 F 96 16 151/87 04/07/19 23:41 164/79 04/07/19 23:30 16 04/07/19 22:30 98.1 F 99 16 172/91 04/07/19 20:36 100 16 155/96 04/07/19 19:02 105 H 18 155/94 04/07/19 17:41 104 H 04/07/19 17:36 102 H 04/07/19 16:24 16 04/07/19 16:03 102 H 18 147/93 04/07/19 14:27 97.8 F 104 H 18 132/83 Pulse Ox 04/08/19 05:06 93 L 04/07/19 23:41 04/07/19 23:30 04/07/19 22:30 97 04/07/19 20:36 99 04/07/19 19:02 97 04/07/19 17:41 04/07/19 17:36 04/07/19 16:24 04/07/19 16:03 97 04/07/19 14:27 97 Intake and Output 04/07/19 04/08/19 04/08/19 22:59 06:59 14:59 Intake Total 930 540 Balance 930 540 Intake: Intake, IV Titration 450 180 Amount Cefepime 1 gm In Sodium 50 Chloride 0.9% 50 ml @ 100 mls/hr IVPB ONCE STA Rx# :[id number] Levofloxacin 750Mg-D5w 150 Pmx 750 mg In Dextrose/ Water 1 150ml.bag @ 100 mls/hr IVPB ONCE STA Rx#: [id number] Sodium Chloride 0.9% 1, 180 000 ml @ 20 mls/hr IV . Q24H [facility] Rx#:[id number] Vancomycin 1,500 mg In 250 Sodium Chloride 0.9% 250 ml @ 125 mls/hr IVPB ONCE ONE Rx#:[id number] Oral 480 360 Other: Voiding Method Toilet # Voids 1 1 # Bowel Movements 1 Gen: This is an -Q[place] 33-year-old male patient. He is in bed and appears to be comfortable and in no acute distress. HEENT: Head is atraumatic, normocephalic. Pupils equal, round. Sclerae is anicteric. Oral mucous membranes are moist. No thrush noted. Dentition in good order. NECK: Supple. No JVD. No lymphadenopathy. No thyromegaly. LUNGS: Clear to auscultation. No wheezes or rhonchi. No intercostal retractions. HEART: Regular rate and rhythm. No murmur. ABDOMEN: Soft. Bowel sounds are present. No masses. No tenderness. EXTREMITIES: 2+ bilateral pedal edema. No calf tenderness. Dorsalis pedis +2 bilaterally. NEUROLOGICAL: Patient is awake, alert and oriented x3. Cranial nerves 2 through 12 are grossly intact. Results Results: Laboratory Results WBC 7.6 k/uL (3.8-10.6) 04/07/19 15:55 RBC 2.87 m/uL (4.30-5.90) L 04/07/19 15:55 Hgb 8.0 gm/dL (13.0-17.5) L 04/07/19 15:55 Hct 23.3 % (39.0-53.0) L 04/07/19 15:55 MCV 81.2 fL (80.0-100.0) 04/07/19 15:55 MCH 27.9 pg (25.0-35.0) 04/07/19 15:55 MCHC 34.4 g/dL (31.0-37.0) 04/07/19 15:55 RDW 14.5 % (11.5-15.5) 04/07/19 15:55 Plt Count 182 k/uL (150-450) 04/07/19 15:55 Neutrophils % 66 % 04/07/19 15:55 Lymphocytes % 21 % 04/07/19 15:55 Monocytes % 8 % 04/07/19 15:55 Eosinophils % 2 % 04/07/19 15:55 Basophils % 1 % 04/07/19 15:55 Neutrophils # 5.0 k/uL (1.3-7.7) 04/07/19 15:55 Lymphocytes # 1.6 k/uL (1.0-4.8) 04/07/19 15:55 Monocytes # 0.6 k/uL (0-1.0) 04/07/19 15:55 Eosinophils # 0.2 k/uL (0-0.7) 04/07/19 15:55 Basophils # 0.0 k/uL (0-0.2) 04/07/19 15:55 PT 9.5 sec (9.0-12.0) 04/07/19 15:55 INR 0.9 (<1.2) 04/07/19 15:55 APTT 29.1 sec (22.0-30.0) 04/07/19 15:55 Sodium 133 mmol/L (137-145) L 04/07/19 15:55 Potassium 5.3 mmol/L (3.5-5.1) H 04/07/19 15:55 Chloride 100 mmol/L (98-107) 04/07/19 15:55 Carbon Dioxide 17 mmol/L (22-30) L 04/07/19 15:55 Anion Gap 16 mmol/L 04/07/19 15:55 BUN 96 mg/dL (9-20) H 04/07/19 15:55 Creatinine 11.09 mg/dL (0.66-1.25) H* 04/07/19 15:55 Est GFR (CKD-EPI)AfAm 6 (>60 ml/min/1.73 sqM) 04/07/19 15:55 Est GFR (CKD-EPI)NonAf 5 (>60 ml/min/1.73 sqM) 04/07/19 15:55 Glucose 168 mg/dL (74-99) H 04/07/19 15:55 POC Glucose (mg/dL) 277 mg/dL (75-99) H 04/08/19 07:18 POC Glu Radial Dr[employer] Carol Hadley 04/08/19 07:18 Calcium 6.9 mg/dL (8.4-10.2) L 04/07/19 15:55 Magnesium 1.2 mg/dL (1.6-2.3) L 04/07/19 15:55 Total Bilirubin 0.2 mg/dL (0.2-1.3) 04/07/19 15:55 AST 29 U/L (17-59) 04/07/19 15:55 ALT 24 U/L (21-72) 04/07/19 15:55 Alkaline Phosphatase 85 U/L (38-126) 04/07/19 15:55 Troponin I 0.016 ng/mL (0.000-0.034) 04/07/19 15:55 NT-Pro-B Natriuret Pep 2160 pg/mL 04/07/19 15:55 Total Protein 8.0 g/dL (6.3-8.2) 04/07/19 15:55 Albumin 3.6 g/dL (3.5-5.0) 04/07/19 15:55 Urine Color Light Yellow 04/07/19 19:00 Urine Appearance Clear (Clear) 04/07/19 19:00 Urine pH 6.5 (5.0-8.0) 04/07/19 19:00 Ur Specific [employer] [facility] 1.011 (1.001-1.035) 04/07/19 19:00 Urine Protein 3+ (Negative) H 04/07/19 19:00 Urine Glucose (UA) 1+ (Negative) H 04/07/19 19:00 Urine Ketones Negative (Negative) 04/07/19 19:00 Urine Blood Negative (Negative) 04/07/19 19:00 Urine Nitrite Negative (Negative) 04/07/19 19:00 Urine Bilirubin Negative (Negative) 04/07/19 19:00 Urine Urobilinogen <2.0 mg/dL (<2.0) 04/07/19 19:00 Ur Leukocyte Esterase Negative (Negative) 04/07/19 19:00 Urine RBC 1 /hpf (0-5) 04/07/19 19:00 Urine WBC 2 /hpf (0-5) 04/07/19 19:00 Hyaline Casts 3 /lpf (0-2) H 04/07/19 19:00 Urine Mucus Rare /hpf (None) H 04/07/19 19:00 CBC & Chem 7: 04/07/19 15:55 04/07/19 15:55 Labs: Abnormal Lab Results - Last 24 Hours (Table) 04/07/19 04/07/19 04/07/19 Range/Units 15:55 15:55 19:00 RBC 2.87 L (4.30-5.90) m/uL Hgb 8.0 L (13.0-17.5) gm/dL Hct 23.3 L (39.0-53.0) % Sodium 133 L (137-145) mmol/L Potassium 5.3 H (3.5-5.1) mmol/L Carbon Dioxide 17 L (22-30) mmol/L BUN 96 H (9-20) mg/dL Creatinine 11.09 H* (0.66-1.25) mg/dL Glucose 168 H (74-99) mg/dL POC Glucose (mg/dL) (75-99) mg/dL Calcium 6.9 L (8.4-10.2) mg/dL Magnesium 1.2 L (1.6-2.3) mg/dL Urine Protein 3+ H (Negative) Urine Glucose (UA) 1+ H (Negative) Hyaline Casts 3 H (0-2) /lpf Urine Mucus Rare H (None) /hpf 04/08/19 Range/Units 07:18 RBC (4.30-5.90) m/uL Hgb (13.0-17.5) gm/dL Hct (39.0-53.0) % Sodium (137-145) mmol/L Potassium (3.5-5.1) mmol/L Carbon Dioxide (22-30) mmol/L BUN (9-20) mg/dL Creatinine (0.66-1.25) mg/dL Glucose (74-99) mg/dL POC Glucose (mg/dL) 277 H (75-99) mg/dL Calcium (8.4-10.2) mg/dL Magnesium (1.6-2.3) mg/dL Urine Protein (Negative) Urine Glucose (UA) (Negative) Hyaline Casts (0-2) /lpf Urine Mucus (None) /hpf Assessment and Plan Plan: This is a 33-year-old male patient presented with chronic kidney disease stage V with acute kidney injury requiring hemodialysis. He has underlying history of HIV and will be continued on Dovato which he has brought from home. Chest x-ray reveals new right middle lobe pneumonia. Antibiotics will be addressed. Continue supportive care. Further medications as patient progresses. The above dictated assessment and findings were discussed with Dr. Pablo. The impression and plan of care have been directed as dictated. Sofia Adams nurse practitioner acting as scribe for Dr. Pablo.
[2019-04-08 09:43] LABS: Basophils % (A) 0 %; Eosinophils # (A) 0.1 k/uL (0-0.7); Eosinophils % (A) 1 %; HCT 22.4 % (39.0-53.0); HGB 7.5 gm/dL (13.0-17.5); Lymphocytes # (A) 1.4 k/uL (1.0-4.8); Lymphocytes % (A) 17 %; MCH 27.1 pg (25.0-35.0); MCHC 33.3 g/dL (31.0-37.0); MCV 81.3 fL (80.0-100.0); Mean Platelet Volume 7.7; Monocytes # (A) 0.7 k/uL (0-1.0); Monocytes % (A) 8 %; Neutrophils # (A) 5.6 k/uL (1.3-7.7); Neutrophils % (A) 71 %; Platelet Count 185 k/uL (150-450); RBC 2.75 m/uL (4.30-5.90); RDW 14.4 % (11.5-15.5); WBC 7.8 k/uL (3.8-10.6)
[2019-04-08 10:04] LABS: Albumin 3.2 g/dL (3.5-5.0); Calcium 7.1 mg/dL (8.4-10.2); Potassium 4.9 mmol/L (3.5-5.1); Total Bilirubin 0.2 mg/dL (0.2-1.3); Total Protein 7.5 g/dL (6.3-8.2)
[2019-04-08] MEDS: BUMETANIDE 1 MG TAB PO SCH ×2 (10:39→17:20)
[2019-04-08] MEDS: PANTOPRAZOLE 40 MG/10 ML VIAL IV SCH (10:39)
[2019-04-08] MEDS: hydrALAZINE HCL 50 MG TAB PO SCH ×3 (10:40→21:05)
[2019-04-08] MEDS: SODIUM BICARBONATE TAB 650 MG TAB PO SCH ×2 (10:40→21:06)
--- NOTE | 2019-04-08 11:04 | P.HPIM ---
History of Present Illness H&P Date: 04/08/19 Emilio Camargo is a 33 yo M with PMH of T1DM, CKD V, HIV who is from [place] and has been in [place] for approx 10 days. He initially presented to [facility] with nausea, leg swelling, and fatigue and was found to be in acute renal failure. He was seen by Nephrology and treated at that time with increased dose of diuretics, and pt then left AMA on 04/02. He subsequently presented to [facility] ED the next day with the same symptoms. He was again treated with diuretics and again seen by Nephrology who recommended pt have mapping for hemodialysis. He then left AMA on 04/05. Pt states he has felt that he could do the same treatments at home that he has been getting in the hospital. He came back to the ED yesterday complaining of nausea, malaise, weakness and abdominal distension. In the ED he was noted to be in worsened renal failure with Cr 11, initally 8 last week and CXR showing RML pneumonia. Pt was given cefepime and levaquin in the ED. Review of Systems All systems: negative Constitutional: Reports malaise, Reports weakness, Reports weight gain, Denies chills, Denies fever Eyes: denies blurred vision, denies pain Ears, nose, mouth and throat: Denies headache, Denies sore throat Cardiovascular: Denies chest pain, Denies shortness of breath Respiratory: Denies cough Gastrointestinal: Reports loss of appetite, Reports nausea, Denies abdominal pain, Denies diarrhea, Denies vomiting Musculoskeletal: Denies myalgias Integumentary: Denies pruritus, Denies rash Neurological: Denies numbness, Denies weakness Psychiatric: Denies anxiety, Denies depression Endocrine: Denies fatigue, Denies weight change Past Medical History Past Medical History: Diabetes Mellitus, GERD/Reflux, Hyperlipidemia, Hypertension, Renal Disease Additional Past Medical History / Comment(s): HIV diagnosed approximately one year ago, 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 History of Any Multi-Drug Resistant Organisms: None Reported Past Surgical History: No Surgical Hx Reported Additional Past Surgical History / Comment(s): Kidney biopsy without anesthesia. Additional Past Anesthesia/Blood Transfusion Reaction / Comment(s): Pt has never had anesthesia. He has had blood transfusion-no reaction. Past Psychological History: No Psychological Hx Reported Additional Psychological History / Comment(s): Pt resides in [place] and is here visiting family for 3 weeks-he has 2 more weeks left. Patient is a lifelong nonsmoker. No marijuana or street drug use. 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 No service. Smoking Status: Never smoker Past Alcohol Use History: None Reported Past Drug Use History: None Reported - Past Family History Father History Unknown: Yes Mother Family Medical History: No Reported History Additional Family Medical History / Comment(s): Mother is healthy. Medications and Allergies Home Medications Medication Instructions Recorded Confirmed Type Aspirin 81 mg PO DAILY 04/03/19 04/07/19 History Atorvastatin Calcium [Lipitor] 40 mg PO HS 04/03/19 04/07/19 History Bumetanide [BUMEX] 4 mg PO BID 04/03/19 04/07/19 History Carvedilol [Coreg] 25 mg PO BID 04/03/19 04/07/19 History Dovato 50-300 Mg 1 tab PO DAILY 04/03/19 04/07/19 History Ergocalciferol [Vitamin D2] 50,000 unit PO FR 04/03/19 04/07/19 History Glucagon Emergency Kit 1 mg IM ONCE PRN 04/03/19 04/07/19 History Glucose 1 Gram Chew 1 gram PO TID PRN 04/03/19 04/07/19 History Insulin Glargine,Hum.rec.anlog 12 unit SQ DAILY 04/03/19 04/07/19 History [Basaglherman Shaw U-100] Insulin Lispro [Admelog Solostar] See Protocol SQ AC-SUPPER 04/03/19 04/07/19 History NIFEdipine [Adalat cc] 90 mg PO Q12H 04/03/19 04/07/19 History Omeprazole [PriLOSEC] 40 mg PO DAILY 04/03/19 04/07/19 History Ondansetron Odt [Zofran Odt] 8 mg PO Q8HR PRN 04/03/19 04/07/19 History SUMAtriptan SUCCINATE [Imitrex] 50 mg PO BID PRN 04/03/19 04/07/19 History Sodium Bicarbonate Tab 1,950 mg PO BID 04/03/19 04/07/19 History diphenhydrAMINE [Benadryl] 50 mg PO DAILY PRN 04/03/19 04/07/19 History hydrALAZINE HCL [Apresoline] 100 mg PO TID 04/03/19 04/07/19 History Allergies Allergy/AdvReac Type Severity Reaction Status Date / Time Penicillins Allergy Rash/Hives Verified 04/07/19 16:45 Physical Exam Vitals: Vital Signs Temp Pulse Pulse Resp BP BP BP 04/08/19 05:06 98.4 F 96 16 151/87 04/07/19 23:41 164/79 04/07/19 23:30 16 04/07/19 22:30 98.1 F 99 16 172/91 04/07/19 20:36 100 16 155/96 04/07/19 19:02 105 H 18 155/94 04/07/19 17:41 104 H 04/07/19 17:36 102 H 04/07/19 16:24 16 04/07/19 16:03 102 H 18 147/93 04/07/19 14:27 97.8 F 104 H 18 132/83 Pulse Ox 04/08/19 05:06 93 L 04/07/19 23:41 04/07/19 23:30 04/07/19 22:30 97 04/07/19 20:36 99 04/07/19 19:02 97 04/07/19 17:41 04/07/19 17:36 04/07/19 16:24 04/07/19 16:03 97 04/07/19 14:27 97 Intake and Output 04/07/19 04/08/19 04/08/19 22:59 06:59 14:59 Intake Total 930 540 Balance 930 540 Intake: Intake, IV Titration 450 180 Amount Cefepime 1 gm In Sodium 50 Chloride 0.9% 50 ml @ 100 mls/hr IVPB ONCE STA Rx# :[id number] Levofloxacin 750Mg-D5w 150 Pmx 750 mg In Dextrose/ Water 1 150ml.bag @ 100 mls/hr IVPB ONCE STA Rx#: [id number] Sodium Chloride 0.9% 1, 180 000 ml @ 20 mls/hr IV . Q24H [facility] Rx#:[id number] Vancomycin 1,500 mg In 250 Sodium Chloride 0.9% 250 ml @ 125 mls/hr IVPB ONCE ONE Rx#:[id number] Oral 480 360 Other: Voiding Method Toilet # Voids 1 1 # Bowel Movements 1 General: well nourished, well developed, NAD. Vitals reviewed Eyes: PERRL, EOMI, conjunctiva normal HENT: normocephalic, mucus membranes moist Neck: supple, no JVD Lungs: normal respiratory effort, no wheezes or rales CV: Regular rate and rhythm, no murmur. Peripheral pulses 2+ Abdomen: soft, mildly distended, no organomegaly Lymph: no cervical or axillary LAD Skin: warm and dry. Neuro: A&Ox3, normal mood and affect Results CBC & Chem 7: 04/08/19 09:24 04/08/19 09:24 Labs: Abnormal Lab Results - Last 24 Hours (Table) 04/07/19 04/07/19 04/07/19 Range/Units 15:55 15:55 19:00 RBC 2.87 L (4.30-5.90) m/uL Hgb 8.0 L (13.0-17.5) gm/dL Hct 23.3 L (39.0-53.0) % Sodium 133 L (137-145) mmol/L Potassium 5.3 H (3.5-5.1) mmol/L Carbon Dioxide 17 L (22-30) mmol/L BUN 96 H (9-20) mg/dL Creatinine 11.09 H* (0.66-1.25) mg/dL Glucose 168 H (74-99) mg/dL POC Glucose (mg/dL) (75-99) mg/dL Calcium 6.9 L (8.4-10.2) mg/dL Magnesium 1.2 L (1.6-2.3) mg/dL ALT (21-72) U/L Albumin (3.5-5.0) g/dL Urine Protein 3+ H (Negative) Urine Glucose (UA) 1+ H (Negative) Hyaline Casts 3 H (0-2) /lpf Urine Mucus Rare H (None) /hpf 04/08/19 04/08/19 04/08/19 Range/Units 07:18 09:24 09:24 RBC 2.75 L (4.30-5.90) m/uL Hgb 7.5 L (13.0-17.5) gm/dL Hct 22.4 L (39.0-53.0) % Sodium 134 L (137-145) mmol/L Potassium (3.5-5.1) mmol/L Carbon Dioxide 18 L (22-30) mmol/L BUN 95 H (9-20) mg/dL Creatinine 10.95 H* (0.66-1.25) mg/dL Glucose 236 H (74-99) mg/dL POC Glucose (mg/dL) 277 H (75-99) mg/dL Calcium 7.1 L (8.4-10.2) mg/dL Magnesium (1.6-2.3) mg/dL ALT 18 L (21-72) U/L Albumin 3.2 L (3.5-5.0) g/dL Urine Protein (Negative) Urine Glucose (UA) (Negative) Hyaline Casts (0-2) /lpf Urine Mucus (None) /hpf Thrombosis Risk Factor Assmnt - Choose All That Apply Any of the Below Risk Factors Present?: Yes Each Factor Represents 1 point: Swollen legs (current) Other Risk Factors: No Other congenital or acquired thrombophilia - If yes, enter type in comment: No Thrombosis Risk Factor Assessment Total Risk Factor Score: 1 Thrombosis Risk Factor Assessment Level: Low Risk Assessment and Plan (1) Acute renal failure (ARF) Current Visit: Yes Status: Acute Code(s): N17.9 - ACUTE KIDNEY FAILURE, UNSPECIFIED SNOMED Code(s): 14403982 (2) HCAP (healthcare-associated pneumonia) Current Visit: Yes Status: Acute Code(s): J18.9 - PNEUMONIA, UNSPECIFIED ORGANISM SNOMED Code(s): 546495094 (3) Type 1 diabetes mellitus Current Visit: Yes Status: Acute Code(s): E10.9 - TYPE 1 DIABETES MELLITUS WITHOUT COMPLICATIONS SNOMED Code(s): 83382882 (4) Anemia in CKD (chronic kidney disease) Current Visit: Yes Status: Acute Code(s): N18.9 - CHRONIC KIDNEY DISEASE, UNSPECIFIED; D63.1 - ANEMIA IN CHRONIC KIDNEY DISEASE SNOMED Code(s): 148443656 (5) ESRD (end stage renal disease) Current Visit: Yes Status: Acute Code(s): N18.6 - END STAGE RENAL DISEASE SNOMED Code(s): 28732971 (6) HIV (human immunodeficiency virus infection) Current Visit: Yes Status: Acute Code(s): B20 - HUMAN IMMUNODEFICIENCY VIRUS [HIV] DISEASE SNOMED Code(s): 63434063 (7) Hypertension associated with stage 4 chronic kidney disease due to type 2 diabetes mellitus Current Visit: No Status: Acute Code(s): E11.22 - TYPE 2 DIABETES MELLITUS W DIABETIC CHRONIC KIDNEY DISEASE; I12.9 - HYPERTENSIVE CHRONIC KIDNEY DISEASE W STG 1-4/UNSP CHR KDNY; N18.4 - CHRONIC KIDNEY DISEASE, STAGE 4 (SEVERE) SNOMED Code(s): 074052772632764 Plan: 1. Acute renal failure on CKD V. Nephrology consulted. Continue bumex 4 mg bid. Daily CMP 2. HCAP. ID on board. Cefepime and vancomycin 3. HTN in CKD. Continue coreg, hydralazine, nifedipine 4. T1DM. Continue 12 U levemir and sliding scale 5. Anemia of CKD. Epo per nephro DVT prophylaxis contraindicated due to uremia GI prophylaxis protonix
[2019-04-08 11:25] LABS: Glucose,Whole Blood 248 mg/dL (75-99)
[2019-04-08] MEDS: DARBEPOETIN ALFA 40 MCG/0.4 ML SYRINGE SQ SCH (11:46)
--- NOTE | 2019-04-08 11:48 | CONS ---
CONSULTATION REASON FOR CONSULT: Renal failure. HISTORY OF PRESENT ILLNESS: Patient is a 33-year-old male with history of chronic kidney disease, NKF stage V who has had 2-3 previous admissions over the last 10 days or so. His creatinine has been at about 10-11 mg/dL. At one time, patient was admitted with uncontrolled hypertension and mild fluid overload and then he was seen at [facility] as well. He presents again with complaints of shortness of breath. Chest x-ray shows possible new pneumonia. However, creatinine is up to 11.09, potassium 5.3. I have discussed renal replacement therapy with the patient and he is agreeable to starting dialysis even though he is not at his hometown and he is advised that he can resume that he can continue with hemodialysis when he returns home. During his stay here, he will be dialyzed out of the [place] unit. PAST MEDICAL HISTORY: CKD stage V, type 2 diabetes. 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 history of HIV with undetectable viral load according to patient. History of gastroesophageal reflux disease, peripheral neuropathy, migraines, type 1 diabetes. PAST SURGICAL HISTORY: Kidney biopsy. SOCIAL HISTORY: Negative for smoking, drug abuse or alcohol abuse. MEDICATIONS: Medications prior to admission include Lipitor, Bumex, Coreg, nifedipine, Prilosec, Zofran, Imitrex, sodium bicarb, Benadryl, hydralazine. ALLERGIES: Include PENICILLIN, which causes rash and hives. PHYSICAL EXAMINATION: Patient is comfortable, awake, alert, and oriented x3, not in any acute distress. Blood pressure is 151/87, heart rate 96 per minute. He is afebrile. Examination of the heart S1, S2. Examination of the lungs, bilateral breath sounds are heard. Abdomen is soft, nontender. Exam of lower extremities shows edema 1+ bilaterally. FLAP PRESSER exam grossly intact. LABS: Show sodium 134, potassium 4.9, chloride 101, CO2 is 18, BUN 95, serum creatinine 10.95, albumin 3.2. UA shows 3+ protein, glucose 1+, no blood is seen. ASSESSMENT: 1. 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 Will proceed with starting dialysis. We will plan for first treatment tomorrow. Patient will need an IJ PermCath. We will consult Vascular Surgery. 2. Volume overload. Expect improvement with hemodialysis. 3. Mild hyperkalemia. Expect improvement with dialysis. 4. Metabolic acidosis. Anion gap secondary to renal failure. 5. Pneumonia maintained on antibiotics. 6. Anemia of chronic disease. Will start patient on Aranesp and check iron studies as well. PLAN: Consult vascular surgery. Check iron levels and hemodialysis in a.m. Thank you for this consultation. Will continue to follow the patient with you during hospitalization. Patient is advised that he will continue with dialysis when he goes back to [place]. In the meantime, he will be dialyzed most likely out of the [facility] unit. MMODL / IJN: [id number] /
--- NOTE | 2019-04-08 14:04 | P.GSCN ---
History of Present Illness History of present illness: 33-year-old -[place] male who is been admitted with history of acute chronic failure, have hypokalemia, volume overload, was consulted for placement of a dialysis catheter risk creatinine is 11.609 and albumin is 96. Patient also has a history of HIV positive Neck examination neck is supple no bruit appreciated Chest is clear first and second sound normal Abdomen soft nontender Vascular femoral pulses are palpable Plan is placement of the dialysis catheter risk and complication bleeding infection thrombosis has been discussed Past Medical History Past Medical History: Diabetes Mellitus, GERD/Reflux, Hyperlipidemia, Hypertension, Renal Disease Additional Past Medical History / Comment(s): HIV diagnosed approximately one year ago, 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 History of Any Multi-Drug Resistant Organisms: None Reported Past Surgical History: No Surgical Hx Reported Additional Past Surgical History / Comment(s): Kidney biopsy without anesthesia. Additional Past Anesthesia/Blood Transfusion Reaction / Comm: Pt has never had anesthesia. He has had blood transfusion-no reaction. Past Psychological History: No Psychological Hx Reported Additional Psychological History / Comment(s): Pt resides in [place] and is here visiting family for 3 weeks-he has 2 more weeks left. Patient is a lifelong nonsmoker. No marijuana or street drug use. 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 No service. Smoking Status: Never smoker Past Alcohol Use History: None Reported Past Drug Use History: None Reported - Past Family History Father History Unknown: Yes Mother Family Medical History: No Reported History Additional Family Medical History / Comment(s): Mother is healthy. Medications and Allergies Home Medications Medication Instructions Recorded Confirmed Type Aspirin 81 mg PO DAILY 04/03/19 04/07/19 History Atorvastatin Calcium [Lipitor] 40 mg PO HS 04/03/19 04/07/19 History Bumetanide [BUMEX] 4 mg PO BID 04/03/19 04/07/19 History Carvedilol [Coreg] 25 mg PO BID 04/03/19 04/07/19 History Dovato 50-300 Mg 1 tab PO DAILY 04/03/19 04/07/19 History Ergocalciferol [Vitamin D2] 50,000 unit PO FR 04/03/19 04/07/19 History Glucagon Emergency Kit 1 mg IM ONCE PRN 04/03/19 04/07/19 History Glucose 1 Gram Chew 1 gram PO TID PRN 04/03/19 04/07/19 History Insulin Glargine,Hum.rec.anlog 12 unit SQ DAILY 04/03/19 04/07/19 History [Basaglar Kwikpen U-100] Insulin Lispro [Admelog Solostar] See Protocol SQ AC-SUPPER 04/03/19 04/07/19 History NIFEdipine [Adalat cc] 90 mg PO Q12H 04/03/19 04/07/19 History Omeprazole [PriLOSEC] 40 mg PO DAILY 04/03/19 04/07/19 History Ondansetron Odt [Zofran Odt] 8 mg PO Q8HR PRN 04/03/19 04/07/19 History SUMAtriptan SUCCINATE [Imitrex] 50 mg PO BID PRN 04/03/19 04/07/19 History Sodium Bicarbonate Tab 1,950 mg PO BID 04/03/19 04/07/19 History diphenhydrAMINE [Benadryl] 50 mg PO DAILY PRN 04/03/19 04/07/19 History hydrALAZINE HCL [Apresoline] 100 mg PO TID 04/03/19 04/07/19 History Allergies Allergy/AdvReac Type Severity Reaction Status Date / Time Penicillins Allergy Rash/Hives Verified 04/07/19 16:45 Surgical - Exam Vital Signs Temp Pulse Resp BP Pulse Ox 97.8 F 104 H 18 132/83 97 04/07/19 14:27 04/07/19 14:27 04/07/19 14:27 04/07/19 14:27 04/07/19 14:27 Results - Labs 04/08/19 09:24 04/08/19 09:24 Abnormal Lab Results - Last 24 Hours (Table) 04/07/19 04/07/19 04/07/19 Range/Units 15:55 15:55 19:00 RBC 2.87 L (4.30-5.90) m/uL Hgb 8.0 L (13.0-17.5) gm/dL Hct 23.3 L (39.0-53.0) % Sodium 133 L (137-145) mmol/L Potassium 5.3 H (3.5-5.1) mmol/L Carbon Dioxide 17 L (22-30) mmol/L BUN 96 H (9-20) mg/dL Creatinine 11.09 H* (0.66-1.25) mg/dL Glucose 168 H (74-99) mg/dL POC Glucose (mg/dL) (75-99) mg/dL Calcium 6.9 L (8.4-10.2) mg/dL Magnesium 1.2 L (1.6-2.3) mg/dL ALT (21-72) U/L Albumin (3.5-5.0) g/dL Urine Protein 3+ H (Negative) Urine Glucose (UA) 1+ H (Negative) Hyaline Casts 3 H (0-2) /lpf Urine Mucus Rare H (None) /hpf 04/08/19 04/08/19 04/08/19 Range/Units 07:18 09:24 09:24 RBC 2.75 L (4.30-5.90) m/uL Hgb 7.5 L (13.0-17.5) gm/dL Hct 22.4 L (39.0-53.0) % Sodium 134 L (137-145) mmol/L Potassium (3.5-5.1) mmol/L Carbon Dioxide 18 L (22-30) mmol/L BUN 95 H (9-20) mg/dL Creatinine 10.95 H* (0.66-1.25) mg/dL Glucose 236 H (74-99) mg/dL POC Glucose (mg/dL) 277 H (75-99) mg/dL Calcium 7.1 L (8.4-10.2) mg/dL Magnesium (1.6-2.3) mg/dL ALT 18 L (21-72) U/L Albumin 3.2 L (3.5-5.0) g/dL Urine Protein (Negative) Urine Glucose (UA) (Negative) Hyaline Casts (0-2) /lpf Urine Mucus (None) /hpf 04/08/19 Range/Units 11:23 RBC (4.30-5.90) m/uL Hgb (13.0-17.5) gm/dL Hct (39.0-53.0) % Sodium (137-145) mmol/L Potassium (3.5-5.1) mmol/L Carbon Dioxide (22-30) mmol/L BUN (9-20) mg/dL Creatinine (0.66-1.25) mg/dL Glucose (74-99) mg/dL POC Glucose (mg/dL) 248 H (75-99) mg/dL Calcium (8.4-10.2) mg/dL Magnesium (1.6-2.3) mg/dL ALT (21-72) U/L Albumin (3.5-5.0) g/dL Urine Protein (Negative) Urine Glucose (UA) (Negative) Hyaline Casts (0-2) /lpf Urine Mucus (None) /hpf Diabetes panel 04/07/19 04/08/19 Range/Units 15:55 09:24 Sodium 133 L 134 L (137-145) mmol/L Potassium 5.3 H 4.9 (3.5-5.1) mmol/L Chloride 100 101 (98-107) mmol/L Carbon Dioxide 17 L 18 L (22-30) mmol/L BUN 96 H 95 H (9-20) mg/dL Creatinine 11.09 H* 10.95 H* (0.66-1.25) mg/dL Glucose 168 H 236 H (74-99) mg/dL Calcium 6.9 L 7.1 L (8.4-10.2) mg/dL AST 29 23 (17-59) U/L ALT 24 18 L (21-72) U/L Alkaline Phosphatase 85 74 (38-126) U/L Total Protein 8.0 7.5 (6.3-8.2) g/dL Albumin 3.6 3.2 L (3.5-5.0) g/dL Calcium panel 04/07/19 04/08/19 Range/Units 15:55 09:24 Calcium 6.9 L 7.1 L (8.4-10.2) mg/dL Albumin 3.6 3.2 L (3.5-5.0) g/dL Pituitary panel 04/07/19 04/08/19 Range/Units 15:55 09:24 Sodium 133 L 134 L (137-145) mmol/L Potassium 5.3 H 4.9 (3.5-5.1) mmol/L Chloride 100 101 (98-107) mmol/L Carbon Dioxide 17 L 18 L (22-30) mmol/L BUN 96 H 95 H (9-20) mg/dL Creatinine 11.09 H* 10.95 H* (0.66-1.25) mg/dL Glucose 168 H 236 H (74-99) mg/dL Calcium 6.9 L 7.1 L (8.4-10.2) mg/dL Adrenal panel 04/07/04/08/19 Range/Units 15:55 09:24 Sodium 133 L 134 L (137-145) mmol/L Potassium 5.3 H 4.9 (3.5-5.1) mmol/L Chloride 100 101 (98-107) mmol/L Carbon Dioxide 17 L 18 L (22-30) mmol/L BUN 96 H 95 H (9-20) mg/dL Creatinine 11.09 H* 10.95 H* (0.66-1.25) mg/dL Glucose 168 H 236 H (74-99) mg/dL Calcium 6.9 L 7.1 L (8.4-10.2) mg/dL Total Bilirubin 0.2 0.2 (0.2-1.3) mg/dL AST 29 23 (17-59) U/L ALT 24 18 L (21-72) U/L Alkaline Phosphatase 85 74 (38-126) U/L Total Protein 8.0 7.5 (6.3-8.2) g/dL Albumin 3.6 3.2 L (3.5-5.0) g/dL
[2019-04-08] MEDS: DOVATO PO SCH (14:28)
[2019-04-08] MEDS ORDERED: IV FLUID CONTINUATION 750 ML IV ONE (15:01)
[2019-04-08] MEDS ORDERED: LIDOCAINE 1% INJ 10MG/ML (20 ML MDV) SQ ONE (15:14)
[2019-04-08] MEDS: LIDOCAINE 1% INJ 10MG/ML (20 ML MDV) SQ ONE ×2 (15:22→16:06)
[2019-04-08] MEDS: fentaNYL (PF) 50 MCG/ML 2 ML AMP IV ONE ×2 (15:42→15:53)
[2019-04-08 17:19] LABS: Glucose,Whole Blood 134 mg/dL (75-99)
[2019-04-08] MEDS: CARVEDILOL 12.5 MG TAB PO SCH ×2 (17:19→21:06)
[2019-04-08 17:30] LABS: Iron Saturation 21.36 (15.00-50.00)
[2019-04-08 19:56] LABS: Glucose,Whole Blood 215 mg/dL (75-99)
[2019-04-08] MEDS: ATORVASTATIN 40 MG TAB PO SCH (21:05)
[2019-04-08] MEDS: NIFEdipine XL 90 MG TAB.ER.24 PO SCH (21:07)
[2019-04-08 21:31] LABS: Glucose,Whole Blood 237 mg/dL (75-99)
[2019-04-08] MEDS: INSULIN ASPART (NovoLOG) 100 UNIT/ML VIAL SQ SCH (21:31)
--- NOTE | 2019-04-08 22:19 | XR ---
EXAMINATION: XR chest 1V portable DATE AND TIME: 04/08/2019 5:43 PM CLINICAL INDICATION: PHH; check placement of dialysis cath TECHNIQUE: AP upright portable chest COMPARISON: 04/07/2019 radiograph FINDINGS: Since the prior study a right IJ double-lumen catheter is in place with tip superimposed ov er the right atrium. There is no pneumothorax. Overall, the lungs are better inflated than the prior study. There are a few scattered ill-defined ad ded opacities throughout the lungs, but the lungs are predominantly clear on the present radiograph. Enlarged cardiac silhouette redemonstrated. No acute skeletal or soft tissue findings, see for not unexpected minor procedure changes in the righ t supraclavicular fossa. IMPRESSION: Dialysis catheter placement.
--- NOTE | 2019-04-08 22:34 | P.CON ---
Consult Note - . Consult date: 04/08/19 Assessment/Plan:: This is a 33-year-old -[place] male from [place] and is here on vacation. He has been here for one-week self-harm plans to stay another 2 weeks. He has a significant past history of HIV diagnosed approximately one year ago and is on Dovato. He states he has not missed any of his doses. He has had follow-up but he does not know his current viral load but believes his numbers have been stable and undetectable. Patient has brought his medication and to the hospital so he can receive a while admitted. He also has past medical history significant for chronic kidney disease stage V, diabetes mellitus type 1, hypertension, peripheral neuropathy, hyperlipidemia. He has not been started on hemodialysis. Patient was initially seen at [facility] and signed out AMA on April 02. He then presented to [facility] emergency center on April 03 with generalized malaise, nausea. He was found to be in acute renal failure with BUN 81, creatinine 9.8, hemoglobin 8.7. He was admitted to the hospital and seen by nephrology and patient was recommended hemodialysis if numbers did not improve and or his symptoms did not improve. Renal ultrasound revealed signal change to the bilateral kidneys. No hydronephrosis. Urinary bladder wall thickening may be present. Patient signed out AMA on Sunday, April 05. He returned to the emergency center yesterday with complaints of continued malaise, generalized weakness, mild shortness of breath, rare cough. No fever or chills. He has bilateral lower extremity edema which he states he has had for some time. Patient states that he had diarrhea a couple days ago which has resolved. He continues to make urine which he feels one a day is sufficient and he denies any retention issues. Renal function had worsened since his initial presentation currently at 11.09, BUN 96, hemoglobin 8.0, WBC 7.6. Blood sugar 168 on presentation. Sodium 133, potassium 5.3, chloride 100, CO2 17. ProBNP 2160, albumin 3.6. Urinalysis clear, nitrite and leukoesterase negative, glucose 1+, protein 3+. Chest x-ray reveals new right middle lobe pneumonia. Cardiomegaly. No heart failure. Patient has been admitted to the [facility] floor. He has been given cefepime and Levaquin Bactrim and vancomycin in the emergency center and vancomycin has been continued with pharmacy dosing. Please see the consult note is dictated by nurse practitioner Mrs. Sofia Adams. 33-year-old male has a history of progressive renal failure is now had his dialysis catheter placed to initiate hemodialysis tomorrow for his rapidly progressive renal failure. We'll obtain CD4 count, viral load and HIV genotype to evaluate what her options are for treatment. Given his renal failure he will not be able to be placed in a fixed dose regimens. He likely has extensive volume overload. As far as antibiotic therapy he received a extensive number of antibiotics in the emergency center. The patient however likely has renal failure and volume overload his etiology of his pulmonary symptoms rather than pneumonia. He has a normal white blood cell count and does not have fever. He has been most briseno at this facility as well as an outside hospital with no notation of any extensive infections being seen with these recent stays. At this time we will evaluate his HIV status and initiate a course of antiretrovirals once enough data becomes available. We will not initiate any further antibiotic therapy at this time. I agree with evaluation, assessment and plan is dictated by nurse practitioner Mrs. Sofia Adams.
[2019-04-09 00:25] LABS: Hepatitis B Surface AB- Quant 34.9 mIU/mL; Hepatitis B Surface Antibody Reactive (Non-Reactive); Hepatitis B Surface Antigen Non-Reactive (Non-Reactive)
[2019-04-09] MEDS: ONDANSETRON 4 MG/2 ML VIAL IVP PRN (04:15)
[2019-04-09] MEDS: SODIUM CHLORIDE 0.9% 1,000 ML IV SCH ×2 (04:15→23:22)
[2019-04-09] MEDS: PANTOPRAZOLE 40 MG/10 ML VIAL IV SCH (06:27)
[2019-04-09 07:11] LABS: Glucose,Whole Blood 500 mg/dL (75-99)
[2019-04-09] MEDS ORDERED: INSULIN ASPART (NovoLOG) 100 UNIT/ML VIAL SQ ONE ×2 (07:21→09:21)
[2019-04-09] MEDS ORDERED: INSULIN DETEMIR (LEVEMIR) 100 UNIT/ML SYR SQ STA (07:23)
[2019-04-09] MEDS: SODIUM BICARBONATE TAB 650 MG TAB PO SCH ×2 (07:56→21:17)
[2019-04-09] MEDS: ACETAMINOPHEN TAB 325 MG TAB PO PRN (07:56)
[2019-04-09] MEDS: BUMETANIDE 1 MG TAB PO SCH ×2 (07:56→17:27)
[2019-04-09] MEDS: NIFEdipine XL 90 MG TAB.ER.24 PO SCH ×2 (07:56→21:18)
[2019-04-09] MEDS: CARVEDILOL 12.5 MG TAB PO SCH ×2 (07:56→17:26)
[2019-04-09] MEDS: INSULIN ASPART (NovoLOG) 100 UNIT/ML VIAL SQ SCH ×4 (07:57→20:38)
[2019-04-09] MEDS: DOVATO PO SCH (07:57)
[2019-04-09] MEDS: hydrALAZINE HCL 50 MG TAB PO SCH ×3 (07:57→21:19)
[2019-04-09 08:59] LABS: Glucose,Whole Blood 470 mg/dL (75-99)
--- NOTE | 2019-04-09 09:08 | IR ---
EXAMINATION TYPE: IR cvc insert central tunneled DATE OF EXAM: 04/08/2019 COMPARISON: NONE HISTORY: Fluoroscopy time. Fluoroscopy was provided to the referring clinician. 5.7 minutes of fluoroscopy provided
--- NOTE | 2019-04-09 10:22 | PCN ---
PROCEDURE NOTE PREOPERATIVE DIAGNOSIS: Acute chronic renal failure. PROCEDURE: Ultrasound-guided dialysis catheter placed 23 cm right jugular approach. SEDATION: Sedation time is 50 minutes. DESCRIPTION OF PROCEDURE: This patient was brought to the clinical lab technologist. Right side of the neck and chest was prepped. Drapes were applied in the usual a sterile manner and 1% lidocaine was infiltrated and IV sedation was given. Micropuncture introduced right jugular vein and micro guidewire and 4-Korean dilator advanced on the top of the guidewire. After that, we created a tunnel. Through the tunnel, we brought the dialysis catheter neck site. The dilator was advanced on the top of the guidewire. The guidewire was parked at the inferior vena cava. Then we advanced the sheath. On the top of the guidewire through the sheath we introduced the dialysis catheter. Tip of the catheter in superior vena cava and atrium, flushed with heparin saline, and secured with 3-0 nylon. Dressing applied. Patient tolerated the procedure well. MMODL / IJN: [id number] /
[2019-04-09 11:05] LABS: Glucose,Whole Blood 361 mg/dL (75-99)
--- NOTE | 2019-04-09 11:50 | PN ---
PROGRESS NOTE Patient is seen for followup for CKD stage 5. He is status post IJ PermCath placement and the patient will be dialyzed today. He had some issues with bleeding, which seemed to have resolved. Blood sugars were also elevated to about 500 range and that is much improved now, down to 361. PHYSICAL EXAMINATION: On examination this morning, blood pressure is 157/87, heart rate 114 per minute. Patient is afebrile. EXAMINATION OF THE HEART: S1, S2. EXAMINATION OF THE LUNGS: Bilateral breath sounds are heard. Abdomen is soft, nontender. Examination of lower extremities shows 1+ edema bilaterally. HEAD INSPECTOR AND CENTER MARKER EXAM: Grossly intact. LABS: Labs show sodium 134, potassium 4.9, BUN 95, serum creatinine 10.9 from yesterday. ASSESSMENT: 1. 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 The patient will need to set up outpatient hemodialysis when he goes back to [place]. In the meantime, raw material planner is on the case to arrange for outpatient dialysis here. 2. Anemia of chronic disease. Will start patient on Aranesp. 3. Volume overload. Continue with the Bumex for now. 4. Possible pneumonia. 5. Type 1 diabetes. 6. Metabolic acidosis. I will discontinue the sodium bicarb once patient starts dialysis. 7. History of migraines. PLAN: Hemodialysis today as well as in a.m. Social Work to arrange for outpatient treatments. MMODL / BOBBYN: [id number] /
[2019-04-09 15:20] LABS: Glucose,Whole Blood 56 mg/dL (75-99)
[2019-04-09 15:42] LABS: Glucose,Whole Blood 94 mg/dL (75-99)
--- NOTE | 2019-04-09 16:35 | P.PN ---
Subjective Progress Note Date: 04/09/19 Emilio Camargo is a 33 yo M with PMH of T1DM, CKD V, HIV who is from [place] and has been in [place] for approx 10 days. He initially presented to [facility] with nausea, leg swelling, and fatigue and was found to be in acute renal failure. He was seen by Nephrology and treated at that time with increased dose of diuretics, and pt then left AMA on 04/02. He subsequently presented to [facility] ED the next day with the same symptoms. He was again treated with diuretics and again seen by Nephrology who recommended pt have mapping for hemodialysis. He then left AMA on 04/05. Pt states he has felt that he could do the same treatments at home that he has been getting in the hospital. He came back to the ED yesterday complaining of nausea, malaise, weakness and abdominal distension. In the ED he was noted to be in worsened renal failure with Cr 11, initally 8 last week and CXR showing RML pneumonia. Pt was given cefepime and levaquin in the ED. 04/09/2019 status post right internal jugular hemodialysis catheter placement as per vascular surgery yesterday, tolerated well. Oozing around the site secondary to uremic bleeding, resolved. Nausea subsided. Blood sugars elevated. Denies pain, chest pain, palpitations or shortness of breath. Denies abdominal pain. Maintained on sodium bicarb drip until dialysis initiated today. Diuresing well on Bumex. Further signs stable, maintaining O2 sats in the 90s on room air. Afebrile, WBC has been normal. Objective - Vital Signs Vital signs: Vital Signs Temp 97.6 F 04/09/19 07:50 Pulse 114 H 04/09/19 07:50 Resp 16 04/09/19 07:50 BP 157/87 04/09/19 07:50 Pulse Ox 96 04/09/19 07:50 Intake & Output 04/08/19 04/09/19 04/09/19 18:59 06:59 18:59 Intake Total 1860 1830 Output Total 2400 Balance 1860 -570 Intake: IV 50 Intake, IV Titration 1210 160 Amount Sodium Chloride 0.9% 1, 800 000 ml @ 100 mls/hr IV . Q10H [facility] Rx#:[id number] Sodium Chloride 0.9% 1, 160 160 000 ml @ 20 mls/hr IV . Q24H [facility] Rx#:[id number] Vancomycin 1,500 mg In 250 Sodium Chloride 0.9% 250 ml @ 125 mls/hr IVPB ONCE ONE Rx#:[id number] Oral 600 1670 Output: Urine 2400 Other: Voiding Method Toilet Toilet Toilet # Voids 3 1 - Exam General: well nourished, well developed, NAD. Vitals reviewed Eyes: PERRL, EOMI, conjunctiva normal HENT: normocephalic, mucus membranes moist Neck: supple, no JVD. Right IJ PermCath present Lungs: normal respiratory effort, no wheezes or rales CV: Regular rate and rhythm, no murmur. Peripheral pulses 2+ Abdomen: soft, mildly distended, nontender, no organomegaly possible bowel sounds Lymph: no cervical or axillary LAD Skin: warm and dry. Neuro: A&Ox3, normal mood and affect - Labs CBC & Chem 7: 04/08/19 09:24 04/08/19 09:24 Labs: Abnormal Lab Results - Last 24 Hours (Table) 04/07/19 04/08/19 04/08/19 Range/Units 15:55 09:24 11:23 POC Glucose (mg/dL) 248 H (75-99) mg/dL Iron 44 L (65-175) ug/dL TIBC 206 L (228-460) ug/dL Hep Bs Antibody Reactive H (Non-Reactive) 04/08/19 04/08/19 04/08/19 Range/Units 17:18 19:55 21:29 POC Glucose (mg/dL) 134 H 215 H 237 H (75-99) mg/dL Iron (65-175) ug/dL TIBC (228-460) ug/dL Hep Bs Antibody (Non-Reactive) 04/09/19 04/09/19 04/09/19 Range/Units 07:08 08:57 11:04 POC Glucose (mg/dL) 500 H 470 H 361 H (75-99) mg/dL Iron (65-175) ug/dL TIBC (228-460) ug/dL Hep Bs Antibody (Non-Reactive) Microbiology - Last 24 Hours (Table) 04/07/19 15:55 Blood Culture - Preliminary Blood No Growth after 24 hours Assessment and Plan Assessment: (1) Acute renal failure (ARF) Current Visit: Yes Status: Acute Code(s): N17.9 - ACUTE KIDNEY FAILURE, UNSPECIFIED SNOMED Code(s): 15485816 (2) possible HCAP (healthcare-associated pneumonia) Current Visit: Yes Status: Acute Code(s): J18.9 - PNEUMONIA, UNSPECIFIED ORGANISM SNOMED Code(s): 080308325 (3) Type 1 diabetes mellitus, uncontrolled, hyperglycemic Current Visit: Yes Status: Acute Code(s): E10.9 - TYPE 1 DIABETES MELLITUS WITHOUT COMPLICATIONS SNOMED Code(s): 83575129 (4) Anemia in CKD (chronic kidney disease) Current Visit: Yes Status: Acute Code(s): N18.9 - CHRONIC KIDNEY DISEASE, UNSPECIFIED; D63.1 - ANEMIA IN CHRONIC KIDNEY DISEASE SNOMED Code(s): 671245716 (5) ESRD (end stage renal disease), status post right jugular dialysis catheter placement, initiation of hemodialysis Current Visit: Yes Status: Acute Code(s): N18.6 - END STAGE RENAL DISEASE SNOMED Code(s): 04137329 (6) HIV (human immunodeficiency virus infection), CD4 count, viral load, genotype pending Current Visit: Yes Status: Acute Code(s): B20 - HUMAN IMMUNODEFICIENCY VIRUS [HIV] DISEASE SNOMED Code(s): 33599211 (7) Hypertension associated with stage 4 chronic kidney disease due to type 2 diabetes mellitus Current Visit: No Status: Acute Code(s): E11.22 - TYPE 2 DIABETES MELLITUS W DIABETIC CHRONIC KIDNEY DISEASE; I12.9 - HYPERTENSIVE CHRONIC KIDNEY DISEASE W STG 1-4/UNSP CHR KDNY; N18.4 - CHRONIC KIDNEY DISEASE, STAGE 4 (SEVERE) SNOMED Code(s): 013034800149764 (8) metabolic acidosis (9) Fluid volume overload secondary to CKD Plan: Continue on current medication regime ,monitoring and symptomatic treatment. GI prophylaxis in place. DVT prophylaxis contraindicated secondary to uremia. Initiation of hemodialysis today as per nephrology. Antivirals as per ID. Additional NovoLog insulin ordered for hyperglycemia, close monitoring of Accu-Cheks. Discussed with RN, May require insulin drip. Case management to arrange for outpatient hemodialysis as per nephrology. The impression and plan of care has been dictated as directed. .: I performed a history and examination of this patient, discussed the same with the dictator. I agree with the dictator's note ,documented as a scribe. Any additional findings or plans will be noted.
[2019-04-09 17:28] LABS: Glucose,Whole Blood 116 mg/dL (75-99)
[2019-04-09 19:55] LABS: Glucose,Whole Blood 227 mg/dL (75-99)
[2019-04-09] MEDS: ATORVASTATIN 40 MG TAB PO SCH (21:19)
[2019-04-10 07:05] LABS: Glucose,Whole Blood 264 mg/dL (75-99)
[2019-04-10] MEDS: INSULIN ASPART (NovoLOG) 100 UNIT/ML VIAL SQ SCH ×4 (07:52→20:38)
[2019-04-10] MEDS: hydrALAZINE HCL 50 MG TAB PO SCH ×3 (07:53→20:39)
[2019-04-10] MEDS: PANTOPRAZOLE 40 MG TABLET PO SCH (07:53)
[2019-04-10] MEDS: CARVEDILOL 12.5 MG TAB PO SCH ×2 (07:53→17:19)
[2019-04-10] MEDS: DOVATO PO SCH (07:54)
[2019-04-10] MEDS: BUMETANIDE 1 MG TAB PO SCH ×2 (07:54→17:19)
[2019-04-10] MEDS: SODIUM BICARBONATE TAB 650 MG TAB PO SCH ×2 (07:55→20:39)
[2019-04-10] MEDS: NIFEdipine XL 90 MG TAB.ER.24 PO SCH ×2 (07:55→20:41)
[2019-04-10 08:08] LABS: Basophils # (A) 0.1 k/uL (0-0.2); Basophils % (A) 2 %; Eosinophils # (A) 0.1 k/uL (0-0.7); Eosinophils % (A) 2 %; HCT 24.6 % (39.0-53.0); HGB 8.4 gm/dL (13.0-17.5); Lymphocytes # (A) 1.4 k/uL (1.0-4.8); Lymphocytes % (A) 24 %; MCH 27.6 pg (25.0-35.0); MCV 81.2 fL (80.0-100.0); Mean Platelet Volume 7.2; Monocytes # (A) 0.5 k/uL (0-1.0); Monocytes % (A) 9 %; Neutrophils # (A) 3.5 k/uL (1.3-7.7); Neutrophils % (A) 61 %; Platelet Count 222 k/uL (150-450); RBC 3.04 m/uL (4.30-5.90); RDW 14.6 % (11.5-15.5); WBC 5.8 k/uL (3.8-10.6)
[2019-04-10 08:18] LABS: Calcium 7.8 mg/dL (8.4-10.2); Potassium 4.8 mmol/L (3.5-5.1)
[2019-04-10] MEDS ORDERED: INSULIN DETEMIR (LEVEMIR) 100 UNIT/ML SYR SQ SCH (09:00)
[2019-04-10 10:14] LABS: T4/T8 Ratio (CD4:CD8) 0.1 (1.0-3.7)
[2019-04-10 11:49] LABS: Glucose,Whole Blood 298 mg/dL (75-99)
[2019-04-10 14:10] LABS: HIV-1 RNA, Quant <40 Copies/mL (<40)
[2019-04-10 17:14] LABS: Glucose,Whole Blood 248 mg/dL (75-99)
--- NOTE | 2019-04-10 18:48 | P.PN ---
Subjective Progress Note Date: 04/10/19 Emilio Camargo is a 33 yo M with PMH of T1DM, CKD V, HIV who is from [place] and has been in [place] for approx 10 days. He initially presented to [facility] with nausea, leg swelling, and fatigue and was found to be in acute renal failure. He was seen by Nephrology and treated at that time with increased dose of diuretics, and pt then left AMA on 04/02. He subsequently presented to [facility] ED the next day with the same symptoms. He was again treated with diuretics and again seen by Nephrology who recommended pt have mapping for hemodialysis. He then left AMA on 04/05. Pt states he has felt that he could do the same treatments at home that he has been getting in the hospital. He came back to the ED yesterday complaining of nausea, malaise, weakness and abdominal distension. In the ED he was noted to be in worsened renal failure with Cr 11, initally 8 last week and CXR showing RML pneumonia. Pt was given cefepime and levaquin in the ED. 04/09/2019 status post right internal jugular hemodialysis catheter placement as per vascular surgery yesterday, tolerated well. Oozing around the site secondary to uremic bleeding, resolved. Nausea subsided. Blood sugars elevated. Denies pain, chest pain, palpitations or shortness of breath. Denies abdominal pain. Maintained on sodium bicarb drip until dialysis initiated today. Diuresing well on Bumex. Further signs stable, maintaining O2 sats in the 90s on room air. Afebrile, WBC has been normal. 04/10/2019 received first hemodialysis yesterday, tolerated well. Creatinine down to 9. Oozing has stopped around dialysis catheter. Reports slept very well last night, nausea free. Diet intake improved, elevated blood sugars in the 200s. Vital signs stable, maintaining O2 sats in the 90s on room air. Afebrile. Second hemodialysis scheduled for today. Objective - Vital Signs Vital signs: Vital Signs Temp 97.9 F 04/10/19 15:50 Pulse 101 H 04/10/19 15:50 Resp 18 04/10/19 15:50 BP 153/88 04/10/19 15:50 Pulse Ox 97 04/10/19 12:19 Intake & Output 04/09/19 04/10/19 04/10/19 18:59 06:59 18:59 Intake Total 160 1720 Output Total 1600 600 750 Balance -1440 1120 -750 Intake: Intake, IV Titration 160 120 Amount Sodium Chloride 0.9% 1, 160 120 000 ml @ 20 mls/hr IV . Q24H JAMEEL Rx#:[id number] Oral 1600 Output: Urine 600 600 Hemodialysis 1000 750 Other: Voiding Method Toilet Toilet Toilet # Voids 1 - Exam General: well nourished, well developed, NAD. Vitals reviewed Eyes: PERRL, EOMI, conjunctiva normal HENT: normocephalic, mucus membranes moist Neck: supple, no JVD. Right IJ PermCath present Lungs: normal respiratory effort, no wheezes or rales CV: Regular rate and rhythm, no murmur. Peripheral pulses 2+ Abdomen: soft, nondistended, nontender, no organomegaly possible bowel sounds Lymph: no cervical or axillary LAD Skin: warm and dry. Neuro: A&Ox3, normal mood and affect - Labs CBC & Chem 7: 04/10/19 07:22 04/10/19 07:22 Labs: Abnormal Lab Results - Last 24 Hours (Table) 04/09/19 04/09/19 04/09/19 Range/Units 06:53 17:27 19:53 RBC (4.30-5.90) m/uL Hgb (13.0-17.5) gm/dL Hct (39.0-53.0) % Sodium (137-145) mmol/L Chloride (98-107) mmol/L BUN (9-20) mg/dL Creatinine (0.66-1.25) mg/dL Glucose (74-99) mg/dL POC Glucose (mg/dL) 116 H 227 H (75-99) mg/dL Calcium (8.4-10.2) mg/dL T-Suppressor Cells 1087 H (190-832) cell/ul % CD4 [place] 10 L (35-66) % Absolute CD4 [place] 132 L (443-1471) cell/ul CD4/CD8 Ratio 0.1 L (1.0-3.7) % CD8 Suppressor 80 H (9-37) % 04/10/19 04/10/19 04/10/19 Range/Units 07:03 07:22 07:22 RBC 3.04 L (4.30-5.90) m/uL Hgb 8.4 L (13.0-17.5) gm/dL Hct 24.6 L (39.0-53.0) % Sodium 132 L (137-145) mmol/L Chloride 97 L (98-107) mmol/L BUN 69 H (9-20) mg/dL Creatinine 9.23 H* (0.66-1.25) mg/dL Glucose 257 H (74-99) mg/dL POC Glucose (mg/dL) 264 H (75-99) mg/dL Calcium 7.8 L (8.4-10.2) mg/dL T-Suppressor Cells (190-832) cell/ul % CD4 [place] (35-66) % Absolute CD4 [place] (443-1471) cell/ul CD4/CD8 Ratio (1.0-3.7) % CD8 Suppressor (9-37) % 04/10/19 Range/Units 11:18 RBC (4.30-5.90) m/uL Hgb (13.0-17.5) gm/dL Hct (39.0-53.0) % Sodium (137-145) mmol/L Chloride (98-107) mmol/L BUN (9-20) mg/dL Creatinine (0.66-1.25) mg/dL Glucose (74-99) mg/dL POC Glucose (mg/dL) 298 H (75-99) mg/dL Calcium (8.4-10.2) mg/dL T-Suppressor Cells (190-832) cell/ul % CD4 [place] (35-66) % Absolute CD4 [place] (443-1471) cell/ul CD4/CD8 Ratio (1.0-3.7) % CD8 Suppressor (9-37) % Microbiology - Last 24 Hours (Table) 04/07/19 15:55 Blood Culture - Preliminary Blood No Growth after 48 hours Assessment and Plan Assessment: (1) Acute renal failure (ARF) Current Visit: Yes Status: Acute Code(s): N17.9 - ACUTE KIDNEY FAILURE, UNSPECIFIED SNOMED Code(s): 98911548 (2) possible HCAP (healthcare-associated pneumonia) Current Visit: Yes Status: Acute Code(s): J18.9 - PNEUMONIA, UNSPECIFIED ORGANISM SNOMED Code(s): 078624853 (3) Type 1 diabetes mellitus, uncontrolled, hyperglycemic Current Visit: Yes Status: Acute Code(s): E10.9 - TYPE 1 DIABETES MELLITUS WITHOUT COMPLICATIONS SNOMED Code(s): 54075662 (4) Anemia in CKD (chronic kidney disease) Current Visit: Yes Status: Acute Code(s): N18.9 - CHRONIC KIDNEY DISEASE, UNSPECIFIED; D63.1 - ANEMIA IN CHRONIC KIDNEY DISEASE SNOMED Code(s): 448223929 (5) ESRD (end stage renal disease), status post right jugular dialysis catheter placement, initiation of hemodialysis Current Visit: Yes Status: Acute Code(s): N18.6 - END STAGE RENAL DISEASE SNOMED Code(s): 02185014 (6) HIV (human immunodeficiency virus infection), CD4 count, viral load, genotype pending Current Visit: Yes Status: Acute Code(s): B20 - HUMAN IMMUNODEFICIENCY VIRUS [HIV] DISEASE SNOMED Code(s): 92887856 (7) Hypertension associated with stage 4 chronic kidney disease due to type 2 di abetes mellitus Current Visit: No Status: Acute Code(s): E11.22 - TYPE 2 DIABETES MELLITUS W DIABETIC CHRONIC KIDNEY DISEASE; I12.9 - HYPERTENSIVE CHRONIC KIDNEY DISEASE W STG 1-4/UNSP CHR KDNY; N18.4 - CHRONIC KIDNEY DISEASE, STAGE 4 (SEVERE) SNOMED Code(s): 133595090038329 (8) metabolic acidosis (9) Fluid volume overload secondary to CKD Plan: Continue on current medication regime ,monitoring and symptomatic treatment. Levemir dose increased with additional ordered for tonight. Close monitoring of Accu-Cheks. Hemodialysis today as per nephrology. Antivirals as per ID. Case management to arrange for outpatient hemodialysis as per nephrology. The impression and plan of care has been dictated as directed. : I performed a history and examination of this patient, discussed the same with the dictator. I agree with the dictator's note ,documented as a scribe. Any a dditional findings or plans will be noted.
[2019-04-10] MEDS ORDERED: INSULIN DETEMIR (LEVEMIR) 100 UNIT/ML SYR SQ ONE (19:00)
[2019-04-10] MEDS: SODIUM CHLORIDE 0.9% 1,000 ML IV SCH (19:25)
[2019-04-10 20:15] LABS: Glucose,Whole Blood 212 mg/dL (75-99)
--- NOTE | 2019-04-10 20:27 | PN ---
PROGRESS NOTE Patient is seen for followup for end-stage renal disease. He had his first treatment of hemodialysis yesterday. The patient tolerated his treatment well. He is doing well currently. Discharge Planning is working to set up outpatient dialysis. They are having issues with insurance, as patient resides in [place]. He is here for about a 2-week period for work. On examination this morning, blood pressure was 140/83, heart rate 97 per minute. He is afebrile. EXAMINATION OF THE HEART: S1 and S2. EXAMINATION OF LUNGS: Bilateral breath sounds are heard. ABDOMEN: Soft, non-tender. Examination of lower extremities shows edema 1+ bilaterally. Labs show sodium 132, potassium 4.8, chloride 97, BUN 69, serum creatinine 9.23, hemoglobin 8.4 g/dL. ASSESSMENT: 1. End-stage renal disease, started on hemodialysis. Patient will receive his second treatment today. We will give him a break tomorrow, which is Sunday, and dialyze him again on Sunday. In the meantime, Discharge Planning is working to set up outpatient dialysis. They are having issues with insurance, since patient resides in [place]. 2. Hypertension, controlled. 3. Volume overload. Continue with Bumex. Expect further improvement with hemodialysis and ultrafiltration. 4. Diabetes, maintained on insulin. PLAN: Repeat dialysis today. Continue with Bumex. Continue with Aranesp. Continue to arrange for outpatient dialysis and insurance. NUBIA / BOBBYN: [id number] /
[2019-04-10] MEDS: ATORVASTATIN 40 MG TAB PO SCH (20:39)
[2019-04-11 02:21] LABS: Hemoglobin A1C 9.7 % (4.0-6.0)
[2019-04-11] MEDS ORDERED: INSULIN DETEMIR (LEVEMIR) 100 UNIT/ML SYR SQ SCH (07:00)
[2019-04-11 07:38] LABS: Glucose,Whole Blood 486 mg/dL (75-99)
[2019-04-11] MEDS: INSULIN ASPART (NovoLOG) 100 UNIT/ML VIAL SQ SCH ×4 (08:21→20:26)
[2019-04-11] MEDS: SODIUM BICARBONATE TAB 650 MG TAB PO SCH (08:22)
[2019-04-11] MEDS: PANTOPRAZOLE 40 MG TABLET PO SCH (08:22)
[2019-04-11] MEDS: hydrALAZINE HCL 50 MG TAB PO SCH ×3 (08:22→20:26)
[2019-04-11] MEDS: NIFEdipine XL 90 MG TAB.ER.24 PO SCH ×2 (08:22→20:26)
[2019-04-11] MEDS: CARVEDILOL 12.5 MG TAB PO SCH ×2 (08:22→18:02)
[2019-04-11] MEDS: BUMETANIDE 1 MG TAB PO SCH ×2 (08:23→18:02)
[2019-04-11] MEDS: DOVATO PO SCH (08:23)
[2019-04-11] MEDS ORDERED: ERGOCALCIFEROL 50,000 UNIT CAP PO SCH (09:00)
[2019-04-11] MEDS ORDERED: INSULIN ASPART (NovoLOG) 100 UNIT/ML VIAL SQ ONE (09:04)
[2019-04-11 09:52] LABS: Basophils % (A) 1 %; Eosinophils # (A) 0.1 k/uL (0-0.7); Eosinophils % (A) 2 %; HGB 7.1 gm/dL (13.0-17.5); Lymphocytes # (A) 1.5 k/uL (1.0-4.8); Lymphocytes % (A) 28 %; MCH 27.7 pg (25.0-35.0); MCHC 33.9 g/dL (31.0-37.0); MCV 81.7 fL (80.0-100.0); Mean Platelet Volume 7.9; Monocytes # (A) 0.5 k/uL (0-1.0); Monocytes % (A) 9 %; Neutrophils # (A) 3.1 k/uL (1.3-7.7); Neutrophils % (A) 58 %; Platelet Count 189 k/uL (150-450); RBC 2.57 m/uL (4.30-5.90); RDW 14.5 % (11.5-15.5); WBC 5.3 k/uL (3.8-10.6)
[2019-04-11 10:10] LABS: Albumin 2.9 g/dL (3.5-5.0); Calcium 7.4 mg/dL (8.4-10.2); Potassium 4.1 mmol/L (3.5-5.1); Total Bilirubin 0.2 mg/dL (0.2-1.3); Total Protein 6.9 g/dL (6.3-8.2)
[2019-04-11 11:45] LABS: Glucose,Whole Blood 189 mg/dL (75-99)
[2019-04-11 14:12] VITALS: BMI 24.4
[2019-04-11 17:09] LABS: Glucose,Whole Blood 229 mg/dL (75-99)
[2019-04-11] MEDS: SODIUM CHLORIDE 0.9% 1,000 ML IV SCH (18:02)
--- NOTE | 2019-04-11 18:16 | PN ---
PROGRESS NOTE Patient is seen for followup for end-stage renal disease. He has had 2 treatments of hemodialysis, currently waiting for approval of insurance to start outpatient treatments. Patient lives in [place] and is here for a short period of time from his job. He has underlying chronic GN stage V and was started on dialysis this admission secondary to repeated admissions for volume overload, uncontrolled hypertension and significantly elevated creatinine. On examination today, patient is comfortable. He is not in any acute distress. Blood pressure 138/77, heart rate 108 per minute. Examination reveals patient's volume status has improved. Lower extremity edema has improved. Abdomen is soft, nontender. Lungs are clear. No asterixis noted. Labs show hemoglobin 7.1, sodium 131, potassium 4.1, chloride 95, creatinine down to 7.75. ASSESSMENT: 1. Chronic kidney disease, stage V, secondary to chronic GN, started on hemodialysis. Patient has received 2 treatments with last treatment yesterday on 04/10/2019. He will be dialyzed again tomorrow, 04/12/2019, for his third treatment. Patient states he is feeling better. He is currently awaiting insurance approval for outpatient treatments. 2. Volume overload, now improved. 3. Hypertension, currently improved, partly volume-sensitive. 4. Anemia. No active bleeding noted. Started on Aranesp. Iron saturation was not significantly low. 5. Dyslipidemia. PLAN: Next hemodialysis in a.m. I will discontinue the sodium bicarb. MMODL / BOBBYN: [id number] /
[2019-04-11 20:23] LABS: Glucose,Whole Blood 322 mg/dL (75-99)
[2019-04-11] MEDS: ATORVASTATIN 40 MG TAB PO SCH (20:26)
--- NOTE | 2019-04-11 22:07 | P.PN ---
Subjective Progress Note Date: 04/11/19 Emilio Camargo is a 33 yo M with PMH of T1DM, CKD V, HIV who is from [place] and has been in [place] for approx 10 days. He initially presented to [facility] with nausea, leg swelling, and fatigue and was found to be in acute renal failure. He was seen by Nephrology and treated at that time with increased dose of diuretics, and pt then left AMA on 04/02. He subsequently presented to [facility] ED the next day with the same symptoms. He was again treated with diuretics and again seen by Nephrology who recommended pt have mapping for hemodialysis. He then left AMA on 04/05. Pt states he has felt that he could do the same treatments at home that he has been getting in the hospital. He came back to the ED yesterday complaining of nausea, malaise, weakness and abdominal distension. In the ED he was noted to be in worsened renal failure with Cr 11, initally 8 last week and CXR showing RML pneumonia. Pt was given cefepime and levaquin in the ED. \ 04/09/2019 status post right internal jugular hemodialysis catheter placement as per vascular surgery yesterday, tolerated well. Oozing around the site secondary to uremic bleeding, resolved. Nausea subsided. Blood sugars elevated. Denies pain, chest pain, palpitations or shortness of breath. Denies abdominal pain. Maintained on sodium bicarb drip until dialysis initiated today. Diuresing well on Bumex. Further signs stable, maintaining O2 sats in the 90s on room air. Afebrile, WBC has been normal. 04/10/2019 received first hemodialysis yesterday, tolerated well. Creatinine down to 9. Oozing has stopped around dialysis catheter. Reports slept very well last night, nausea free. Diet intake improved, elevated blood sugars in the 200s. Vital signs stable, maintaining O2 sats in the 90s on room air. Afebrile. Second hemodialysis scheduled for today. 04/11. He is feeling much better today after his second round of dialysis yesterday. Cr down to 7.7. He states his abdominal distention and weakness are both back to his usual baseline. Pt is unable to schedule outpatient dialysis due to insurance. CM and nephrology following Objective - Vital Signs Vital signs: Vital Signs Temp 98.6 F 09/27/19 21:00 Pulse 104 H 04/11/19 21:00 Resp 16 04/11/19 21:00 BP 141/85 04/11/19 21:00 Pulse Ox 92 L 04/11/19 21:00 Intake & Output 04/11/19 04/11/19 04/12/19 06:59 18:59 06:59 Intake Total 2380 1320 Output Total 950 Balance 2380 370 Weight 79.379 kg Intake: Intake, IV Titration 220 120 Amount Sodium Chloride 0.9% 1, 220 120 000 ml @ 20 mls/hr IV . Q24H JAMEEL Rx#:[id number] Oral 2160 1200 Output: Urine 950 Other: Voiding Method Toilet Toilet # Voids 1 - Exam General: well nourished, well developed, NAD. Vitals reviewed Eyes: PERRL, EOMI, conjunctiva normal HENT: normocephalic, mucus membranes moist Neck: supple, no JVD. Right IJ PermCath present Lungs: normal respiratory effort, no wheezes or rales CV: Regular rate and rhythm, no murmur. Peripheral pulses 2+ Abdomen: soft, nondistended, nontender, no organomegaly Skin: warm and dry. - Labs CBC & Chem 7: 04/11/19 09:28 04/11/19 09:28 Labs: Abnormal Lab Results - Last 24 Hours (Table) 04/10/19 04/11/19 04/11/19 Range/Units 07:22 07:36 09:28 RBC 2.57 L (4.30-5.90) m/uL Hgb 7.1 L (13.0-17.5) gm/dL Hct 21.0 L (39.0-53.0) % Sodium (137-145) mmol/L Chloride (98-107) mmol/L BUN (9-20) mg/dL Creatinine (0.66-1.25) mg/dL Glucose (74-99) mg/dL POC Glucose (mg/dL) 486 H (75-99) mg/dL Hemoglobin A1c 9.7 H (4.0-6.0) % Calcium (8.4-10.2) mg/dL ALT (21-72) U/L Albumin (3.5-5.0) g/dL 04/11/19 04/11/19 04/11/19 Range/Units 09:28 11:43 17:08 RBC (4.30-5.90) m/uL Hgb (13.0-17.5) gm/dL Hct (39.0-53.0) % Sodium 131 L (137-145) mmol/L Chloride 95 L (98-107) mmol/L BUN 52 H (9-20) mg/dL Creatinine 7.75 H* (0.66-1.25) mg/dL Glucose 331 H (74-99) mg/dL POC Glucose (mg/dL) 189 H 229 H (75-99) mg/dL Hemoglobin A1c (4.0-6.0) % Calcium 7.4 L (8.4-10.2) mg/dL ALT 15 L (21-72) U/L Albumin 2.9 L (3.5-5.0) g/dL 04/11/19 Range/Units 20:19 RBC (4.30-5.90) m/uL Hgb (13.0-17.5) gm/dL Hct (39.0-53.0) % Sodium (137-145) mmol/L Chloride (98-107) mmol/L BUN (9-20) mg/dL Creatinine (0.66-1.25) mg/dL Glucose (74-99) mg/dL POC Glucose (mg/dL) 322 H (75-99) mg/dL Hemoglobin A1c (4.0-6.0) % Calcium (8.4-10.2) mg/dL ALT (21-72) U/L Albumin (3.5-5.0) g/dL Microbiology - Last 24 Hours (Table) 04/07/19 15:55 Blood Culture - Preliminary Blood No Growth after 96 hours Assessment and Plan (1) Acute renal failure (ARF) Current Visit: Yes Status: Acute Code(s): N17.9 - ACUTE KIDNEY FAILURE, UNSPECIFIED SNOMED Code(s): 16772033 (2) HCAP (healthcare-associated pneumonia) Current Visit: Yes Status: Acute Code(s): J18.9 - PNEUMONIA, UNSPECIFIED ORGANISM SNOMED Code(s): 159092635 (3) Type 1 diabetes mellitus Current Visit: Yes Status: Acute Code(s): E10.9 - TYPE 1 DIABETES MELLITUS WITHOUT COMPLICATIONS SNOMED Code(s): 99112675 (4) Anemia in CKD (chronic kidney disease) Current Visit: Yes Status: Acute Code(s): N18.9 - CHRONIC KIDNEY DISEASE, UNSPECIFIED; D63.1 - ANEMIA IN CHRONIC KIDNEY DISEASE SNOMED Code(s): 619491275 (5) ESRD (end stage renal disease) Current Visit: Yes Status: Acute Code(s): N18.6 - END STAGE RENAL DISEASE SNOMED Code(s): 29366514 (6) HIV (human immunodeficiency virus infection) Current Visit: Yes Status: Acute Code(s): B20 - HUMAN IMMUNODEFICIENCY VIRUS [HIV] DISEASE SNOMED Code(s): 99542181 (7) Hypertension associated with stage 4 chronic kidney disease due to type 2 diabetes mellitus Current Visit: No Status: Acute Code(s): E11.22 - TYPE 2 DIABETES MELLITUS W DIABETIC CHRONIC KIDNEY DISEASE; I12.9 - HYPERTENSIVE CHRONIC KIDNEY DISEASE W STG 1-4/UNSP CHR KDNY; N18.4 - CHRONIC KIDNEY DISEASE, STAGE 4 (SEVERE) SNOMED Code(s): 008476788348714 (8) Metabolic acidosis due to diabetes mellitus Current Visit: Yes Status: Acute Code(s): E11.69 - TYPE 2 DIABETES MELLITUS WITH OTHER SPECIFIED COMPLICATION; E87.2 - ACIDOSIS SNOMED Code(s): 791677739 Plan: 1. Acute renal failure on CKD V. Nephrology following. HD MWF. Pt and case management working on outpatient dialysis 2. HTN in CKD. Continue coreg, hydralazine, nifedipine 3. T1DM. Continue 22 U levemir and sliding scale 4. Possible HCAP. Abx stopped per ID. Resolved 5. Anemia of CKD. Epo per nephro DVT prophylaxis contraindicated due to uremia GI prophylaxis protonix
--- NOTE | 2019-04-11 23:33 | P.PN ---
Subjective Progress Note Date: 04/11/19 This is a 33-year-old -[place] male from [place] and is here on vacation. He has been here for one-week self-harm plans to stay another 2 weeks. He has a significant past history of HIV diagnosed approximately one year ago and is on Dovato. He states he has not missed any of his doses. He vidal s had follow-up but he does not know his current viral load but believes his numbers have been stable and undetectable. Patient has brought his medication and to the hospital so he can receive a while admitted. He also has past medical history significant for chronic kidney disease stage V, diabetes mellitus type 1, hypertension, peripheral neuropathy, hyperlipidemia. He has not been started on hemodialysis. Patient was initially seen at [facility] and signed out AMA on April 02. He then presented to [facility] emergency center on April 03 with generalized malaise, nausea. He was found to be in acute renal failure with BUN 81, creatinine 9.8, hemoglobin 8.7. He was admitted to the hospital and seen by nephrology and patient was recommended hemodialysis if numbers did not improve and or his symptoms did not improve. Renal ultrasound revealed signal change to the bilateral kidneys. No hydronephrosis. Urinary bladder wall thickening may be present. Patient signed out AMA on Sunday, April 05. He returned to the emergency center yesterday with complaints of continued malaise, generalized weakness, mild shortness of breath, rare cough. No fever or chills. He has bilateral lower extremity edema which he states he has had for some time. Patient states that he had diarrhea a couple days ago which has resolved. He continues to make urine which he feels one a day is sufficient and he denies any retention issues. Renal function had worsened since his initial presentation currently at 11.09, BUN 96, hemoglobin 8.0, WBC 7.6. Blood sugar 168 on presentation. Sodium 133, potassium 5.3, chloride 100, CO2 17. ProBNP 2160, albumin 3.6. Urinalysis clear, nitrite and leukoesterase negative, glucose 1+, protein 3+. Chest x-ray reveals new right middle lobe pneumonia. Cardiomegaly. No heart failure. Patient has been admitted to the Medr floor. He has been given cefepime and Levaquin Bactrim and vancomycin in the emergency center and vancomycin has been continued with pharmacy dosing. 04/11/2019 the patient is now had 2 dialysis sessions is feeling somewhat better. Shortness of breath is resolved. He is not having cough or sputum production. No fevers or chills. Objective - Vital Signs Vital signs: Vital Signs Temp 98.6 F 04/11/19 21:00 Pulse 104 H 04/11/19 21:00 Resp 16 04/11/19 21:00 BP 141/85 04/11/19 21:00 Pulse Ox 92 L 04/11/19 21:00 Intake & Output 04/11/19 04/11/19 04/12/19 06:59 18:59 06:59 Intake Total 2380 1320 Output Total 950 Balance 2380 370 Weight 79.379 kg Intake: Intake, IV Titration 220 120 Amount Sodium Chloride 0.9% 1, 220 120 000 ml @ 20 mls/hr IV . Q24H [facility] Rx#:[id number] Oral 2160 1200 Output: Urine 950 Other: Voiding Method Toilet Toilet # Voids 1 - Exam Gen: This is an -Croatian 33-year-old male patient. He is in bed and appears to be comfortable and in no acute distress. HEENT: Head is atraumatic, normocephalic. Pupils equal, round. Sclerae is ani cteric. Oral mucous membranes are moist. No thrush noted. Dentition in good order. NECK: Supple. No JVD. No lymphadenopathy. No thyromegaly. Dialysis catheter right IJ area is intact LUNGS: Clear to auscultation. No wheezes or rhonchi. No intercostal retractions. HEART: Regular rate and rhythm. No murmur. ABDOMEN: Soft. Bowel sounds are present. No masses. No tenderness. EXTREMITIES: 2+ bilateral pedal edema. No calf tenderness. Dorsalis pedis +2 bilaterally. NEUROLOGICAL: Patient is awake, alert and oriented x3. - Labs CBC & Chem 7: 04/11/19 09:28 04/11/19 09:28 Labs: Abnormal Lab Results - Last 24 Hours (Table) 04/10/19 04/11/19 04/11/19 Range/Units 07:22 07:36 09: RBC 2.57 L (4.30-5.90) m/uL Hgb 7.1 L (13.0-17.5) gm/dL Hct 21.0 L (39.0-53.0) % Sodium (137-145) mmol/L Chloride (98-107) mmol/L BUN (9-20) mg/dL Creatinine (0.66-1.25) mg/dL Glucose (74-99) mg/dL POC Glucose (mg/dL) 486 H (75-99) mg/dL Hemoglobin A1c 9.7 H (4.0-6.0) % Calcium (8.4-10.2) mg/dL ALT (21-72) U/L Albumin (3.5-5.0) g/dL 04/11/19 04/11/19 04/11/19 Range/Units 09:28 11:43 17:08 RBC (4.30-5.90) m/uL Hgb (13.0-17.5) gm/dL Hct (39.0-53.0) % Sodium 131 L (137-145) mmol/L Chloride 95 L (98-107) mmol/L BUN 52 H (9-20) mg/dL Creatinine 7.75 H* (0.66-1.25) mg/dL Glucose 331 H (74-99) mg/dL POC Glucose (mg/dL) 189 H 229 H (75-99) mg/dL Hemoglobin A1c (4.0-6.0) % Calcium 7.4 L (8.4-10.2) mg/dL ALT 15 L (21-72) U/L Albumin 2.9 L (3.5-5.0) g/dL 04/11/19 Range/Units 20:19 RBC (4.30-5.90) m/uL Hgb (13.0-17.5) gm/dL Hct (39.0-53.0) % Sodium (137-145) mmol/L Chloride (98-107) mmol/L BUN (9-20) mg/dL Creatinine (0.66-1.25) mg/dL Glucose (74-99) mg/dL POC Glucose (mg/dL) 322 H (75-99) mg/dL Hemoglobin A1c (4.0-6.0) % Calcium (8.4-10.2) mg/dL ALT (21-72) U/L Albumin (3.5-5.0) g/dL Microbiology - Last 24 Hours (Table) 04/07/19 15:55 Blood Culture - Preliminary Blood No Growth after 96 hours Laboratory Results WBC 5.3 k/uL (3.8-10.6) 04/11/19 09: RBC 2.57 m/uL (4.30-5.90) L 04/11/19 09:28 Hgb 7.1 gm/dL (13.0-17.5) L 04/11/19 09:28 Hct 21.0 % (39.0-53.0) L 04/11/19 09:28 MCV 81.7 fL (80.0-100.0) 04/11/19 09: MCH 27.7 pg (25.0-35.0) 04/11/19 09: MCHC 33.9 g/dL (31.0-37.0) 04/11/19 09: RDW 14.5 % (11.5-15.5) 04/11/19 09:28 Plt Count 189 k/uL (150-450) 04/11/19 09:28 Neutrophils % 58 % 04/11/19 09:28 Lymphocytes % 28 % 04/11/19 09:28 Monocytes % 9 % 04/11/19 09: Eosinophils % 2 % 04/11/19 09: Basophils % 1 % 04/11/19 09:28 Neutrophils # 3.1 k/uL (1.3-7.7) 04/11/19 09:28 Lymphocytes # 1.5 k/uL (1.0-4.8) 04/11/19 09:28 Monocytes # 0.5 k/uL (0-1.0) 04/11/19 09:28 Eosinophils # 0.1 k/uL (0-0.7) 04/11/19 09:28 Basophils # 0.0 k/uL (0-0.2) 04/11/19 09:28 PT 9.5 sec (9.0-12.0) 04/07/19 15:55 INR 0.9 (<1.2) 04/07/19 15:55 APTT 29.1 sec (22.0-30.0) 04/07/19 15:55 Sodium 131 mmol/L (137-145) L 04/11/19 09:28 Potassium 4.1 mmol/L (3.5-5.1) 04/11/19 09:28 Chloride 95 mmol/L (98-107) L 04/11/19 09:28 Carbon Dioxide 24 mmol/L (22-30) 04/11/19 09:28 Anion Gap 12 mmol/L 04/11/19 09:28 BUN 52 mg/dL (9-20) H 04/11/19 09:28 Creatinine 7.75 mg/dL (0.66-1.25) H* 04/11/19 09:28 Est GFR (CKD-EPI)AfAm 10 (>60 ml/min/1.73 sqM) 04/11/19 09:28 Est GFR (CKD-EPI)NonAf 8 (>60 ml/min/1.73 sqM) 04/11/19 09:28 Glucose 331 mg/dL (74-99) H 04/11/19 09:28 POC Glucose (mg/dL) 322 mg/dL (75-99) H 04/11/19 20:19 POC Glu Rn [place] 04/11/19 20:[address] Glu mg/dL 232 04/10/19 07:22 Hemoglobin A1c 9.7 % (4.0-6.0) H 04/10/19 07:22 Calcium 7.4 mg/dL (8.4-10.2) L 04/11/19 09:28 Magnesium 1.2 mg/dL (1.6-2.3) L 04/07/19 15:55 Iron 44 ug/dL (65-175) L 04/08/19 09:24 TIBC 206 ug/dL (228-460) L 04/08/19 09:24 Iron Saturation 21.36 (15.00-50.00) 04/08/19 09:24 Total Bilirubin 0.2 mg/dL (0.2-1.3) 04/11/19 09:28 AST 19 U/L (17-59) 04/11/19 09:28 ALT 15 U/L (21-72) L 04/11/19 09:28 Alkaline Phosphatase 69 U/L (38-126) 04/11/19 09:28 Troponin I 0.016 ng/mL (0.000-0.034) 04/07/19 15:55 NT-Pro-B Natriuret Pep 2160 pg/mL 04/07/19 15:55 Total Protein 6.9 g/dL (6.3-8.2) 04/11/19 09:28 Albumin 2.9 g/dL (3.5-5.0) L 04/11/19 09:28 Urine Color Light Yellow 04/07/19 19:00 Urine Appearance Clear (Clear) 04/07/19 19:00 Urine pH 6.5 (5.0-8.0) 04/07/19 19:00 Ur Specific [place] 1.011 (1.001-1.035) 04/07/19 19:00 Urine Protein 3+ (Negative) H 04/07/19 19:00 Urine Glucose (UA) 1+ (Negative) H 04/07/19 19:00 Urine Ketones Negative (Negative) 04/07/19 19:00 Urine Blood Negative (Negative) 04/07/19 19:00 Urine Nitrite Negative (Negative) 04/07/19 19:00 Urine Bilirubin Negative (Negative) 04/07/19 19:00 Urine Urobilinogen <2.0 mg/dL (<2.0) 04/07/19 19:00 Ur Leukocyte Esterase Negative (Negative) 04/07/19 19:00 Urine RBC 1 /hpf (0-5) 04/07/19 19:00 Urine WBC 2 /hpf (0-5) 04/07/19 19:00 Hyaline Casts 3 /lpf (0-2) H 04/07/19 19:00 Urine Mucus Rare /hpf (None) H 04/07/19 19:00 T-Suppressor Cells 1087 cell/ul (190-832) H 04/09/19 06:53 % CD4 [place] 10 % (35-66) L 04/09/19 06:53 Absolute CD4 [place] 132 cell/ul (443-1471) L 04/09/19 06:53 CD4/CD8 Ratio 0.1 (1.0-3.7) L 04/09/19 06:53 % CD8 [place] 80 % (9-37) H 04/09/19 06:53 Hep Bs Antigen Non-Reactive (Non-Reactive) 04/07/19 15:55 Hep Bs Antibody Reactive (Non-Reactive) H 04/07/19 15:55 Hep Bs Antibody, Quant 34.9 mIU/mL 04/07/19 15:55 Hep B Core Total Ab Non-Reactive (Non-Reactive) 04/07/19 15:55 HIV-1 RNA Quant <40 Copies/mL (<40) 04/09/19 06:53 HIV RNA logcopies/mL Ult <1.60 (<1.60) 04/09/19 06:53 HIV-1 RNA (PCR) Not detected (Not detected) 04/09/19 06:53 Microbiology 04/07/19 15:55 Blood Blood Culture - Preliminary No Growth after 96 hours Assessment and Plan (1) ESRD (end stage renal disease) Current Visit: Yes Status: Acute Code(s): N18.6 - END STAGE RENAL DISEASE SNOMED Code(s): 99610381 (2) HIV (human immunodeficiency virus infection) Narrative/Plan: 33-year-old male has a history of progressive renal failure is now had his dialysis catheter placed to initiate hemodialysis tomorrow for his rapidly progr essive renal failure. We'll obtain CD4 count, viral load and HIV genotype to evaluate what her options are for treatment. Given his renal failure he will not be able to be placed in a fixed dose regimens. He likely has extensive volume overload. As far as antibiotic therapy he received a extensive number of antibiotics in the emergency center. The patient however likely has renal failure and volume overload his etiology of his pulmonary symptoms rather than pneumonia. He has a normal white blood cell count and does not have fever. He has been most briseno at this facility as well as an outside hospital with no notation of any extensive infections being seen with these recent stays. At this time we will evaluate his HIV status and initiate a course of antiretrovirals once enough data becomes available. We will not initiate any further antibiotic therapy at this time. On 04/11/2019 after the 2 dialysis sessions he's feeling considerably better. 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 His [place] is undetectable. CD4 count is low at 132. He is currently on a fixed dose regimens which cannot be continued due to the very excessive dose of lamuvdine. The single agent components are sent to pharmacy Current Visit: Yes Status: Acute Code(s): B20 - HUMAN IMMUNODEFICIENCY VIRUS [HIV] DISEASE SNOMED Code(s): 02273678
[2019-04-12 07:04] LABS: Glucose,Whole Blood 357 mg/dL (75-99)
[2019-04-12 07:24] LABS: Basophils # (A) 0.1 k/uL (0-0.2); Basophils % (A) 1 %; Eosinophils # (A) 0.2 k/uL (0-0.7); Eosinophils % (A) 2 %; HCT 22.1 % (39.0-53.0); HGB 7.2 gm/dL (13.0-17.5); Lymphocytes % (A) 22 %; MCH 26.9 pg (25.0-35.0); MCHC 32.7 g/dL (31.0-37.0); MCV 82.4 fL (80.0-100.0); Monocytes # (A) 0.7 k/uL (0-1.0); Monocytes % (A) 8 %; Neutrophils # (A) 5.7 k/uL (1.3-7.7); Neutrophils % (A) 64 %; Platelet Count 242 k/uL (150-450); RBC 2.69 m/uL (4.30-5.90); RDW 14.9 % (11.5-15.5); WBC 8.9 k/uL (3.8-10.6)
[2019-04-12 07:37] LABS: Albumin 3.2 g/dL (3.5-5.0); Calcium 7.8 mg/dL (8.4-10.2); Potassium 4.9 mmol/L (3.5-5.1); Total Bilirubin 0.3 mg/dL (0.2-1.3); Total Protein 7.4 g/dL (6.3-8.2)
[2019-04-12] MEDS: INSULIN ASPART (NovoLOG) 100 UNIT/ML VIAL SQ SCH ×4 (08:52→20:40)
[2019-04-12] MEDS: INSULIN DETEMIR (LEVEMIR) 100 UNIT/ML SYR SQ SCH (08:53)
[2019-04-12 11:17] LABS: Glucose,Whole Blood 96 mg/dL (75-99)
[2019-04-12] MEDS: BUMETANIDE 1 MG TAB PO SCH ×2 (13:48→17:46)
[2019-04-12] MEDS: DOVATO PO SCH (13:48)
[2019-04-12] MEDS: CARVEDILOL 12.5 MG TAB PO SCH ×2 (13:48→18:27)
[2019-04-12] MEDS: hydrALAZINE HCL 50 MG TAB PO SCH ×3 (13:48→20:38)
[2019-04-12] MEDS: PANTOPRAZOLE 40 MG TABLET PO SCH (13:48)
[2019-04-12] MEDS: NIFEdipine XL 90 MG TAB.ER.24 PO SCH ×2 (13:49→20:40)
--- NOTE | 2019-04-12 14:04 | P.PN ---
Subjective Patient with known HIV chronic kidney disease stage V is initiated on hemodialysis. Patient is visiting here from [place]. Patient will need hemo dialysis set up which can be done on Sunday in [place] after that patient will be discharged. Patient is also being treated for right middle lobe pneumonia with cefepime and levofloxacin and patient is on antiretroviral therapy for HIV. Patient last CD4 count is 134. Patient is diabetic probably type 1 diabetes mellitus uncontrolled blood sugars presently well controlled will continue the same regimen. Constitutional: Denied any fatigue denied any fever. Cardio vascular: denied any chest pain, palpitations Gastrointestinal denied any nausea vomiting Pulmonary: Denied any shortness of breath cough Neurologic denied any new focal deficits All inpatient medications were reviewed and appropriate changes in these medications as dictated in the interval history and assessment and plan. Objective - Vital Signs Vital signs: Vital Signs Temp 98.7 F 04/12/19 12:10 Pulse 104 H 04/12/19 12:10 Resp 16 04/12/19 12:10 BP 155/87 04/12/19 12:10 Pulse Ox 92 L 04/12/19 03:53 Intake & Output 04/11/19 04/12/19 04/12/19 18:59 06:59 18:59 Intake Total 1320 Output Total 950 2000 Balance 370 -2000 Weight 79.379 kg Intake: Intake, IV Titration 120 Amount Sodium Chloride 0.9% 1, 120 000 ml @ 20 mls/hr IV . Q24H [facility] Rx#:[id number] Oral 1200 Output: Urine 950 Hemodialysis 2000 Other: Voiding Method Toilet Toilet Toilet # Voids 1 - Exam PHYSICAL EXAMINATION: GENERAL: The patient is alert and oriented x3, not in any acute distress. Well developed, well nourished. HEENT: Pupils are round and equally reacting to light. EOMI. No scleral icterus. No conjunctival pallor. Normocephalic, atraumatic. No pharyngeal erythema. No thyromegaly. CARDIOVASCULAR: S1 and S2 present. No murmurs, rubs, or gallops. PULMONARY: Chest is clear to auscultation, no wheezing or crackles. ABDOMEN: Soft, nontender, nondistended, normoactive bowel sounds. No palpable organomegaly. MUSCULOSKELETAL: No joint swelling or deformity. EXTREMITIES: No cyanosis, clubbing, or pedal edema. NEUROLOGICAL: Gross neurological examination did not reveal any focal deficits. SKIN: No rashes. - Labs CBC & Chem 7: 04/12/19 07:12 04/12/19 07:12 Labs: Abnormal Lab Results - Last 24 Hours (Table) 04/11/19 04/11/19 04/12/19 Range/Units 17:08 20:19 07:02 RBC (4.30-5.90) m/uL Hgb (13.0-17.5) gm/dL Hct (39.0-53.0) % Sodium (137-145) mmol/L Chloride (98-107) mmol/L BUN (9-20) mg/dL Creatinine (0.66-1.25) mg/dL Glucose (74-99) mg/dL POC Glucose (mg/dL) 229 H 322 H 357 H (75-99) mg/dL Calcium (8.4-10.2) mg/dL Phosphorus (2.5-4.5) mg/dL Albumin (3.5-5.0) g/dL 04/12/19 04/12/19 Range/Units 07:12 07:12 RBC 2.69 L (4.30-5.90) m/uL Hgb 7.2 L (13.0-17.5) gm/dL Hct 22.1 L (39.0-53.0) % Sodium 131 L (137-145) mmol/L Chloride 95 L (98-107) mmol/L BUN 62 H (9-20) mg/dL Creatinine 8.35 H* (0.66-1.25) mg/dL Glucose 332 H (74-99) mg/dL POC Glucose (mg/dL) (75-99) mg/dL Calcium 7.8 L (8.4-10.2) mg/dL Phosphorus 6.0 H (2.5-4.5) mg/dL Albumin 3.2 L (3.5-5.0) g/dL Microbiology - Last 24 Hours (Table) 04/07/19 15:55 Blood Culture - Preliminary Blood No Growth after 96 hours Assessment and Plan Plan: 1 right middle lobe pneumonia patient is on cefepime will which will be alia nued. Patient is also on levofloxacin as per infectious disease. -End-stage renal disease hemodialysis dependent was initiated on dialysis here chronic chronic nephritis from HIV is a consideration. Patient will resume her dialysis on Sunday after which her hemodialysis will be arranged for him as Sunday and Sunday schedule and will be discharged on Sunday -Type 2 diabetes mellitus patient but sugars are well controlled with present regimen and will continue with the present regimen -Anemia from chronic kidney disease -Hypertension
--- NOTE | 2019-04-12 14:14 | P.PN ---
Subjective Progress Note Date: 04/12/19 Seen and examined for the follow-up off ESRD. Started on hemodialysis during this admission. Had dialysis today. Objective - Vital Signs Vital signs: Vital Signs Temp 98.7 F 04/12/19 12:10 Pulse 104 H 04/12/19 12:10 Resp 16 04/12/19 12:10 BP 155/87 04/12/19 12:10 Pulse Ox 92 L 04/12/19 03:53 Intake & Output 04/11/19 04/12/19 04/12/19 18:59 06:59 18:59 Intake Total 1320 Output Total 950 2000 Balance 370 -2000 Weight 79.379 kg Intake: Intake, IV Titration 120 Amount Sodium Chloride 0.9% 1, 120 000 ml @ 20 mls/hr IV . Q24H [facility] Rx#:[id number] Oral 1200 Output: Urine 950 Hemodialysis 2000 Other: Voiding Method Toilet Toilet Toilet # Voids 1 - Exam No acute distress S1-S2 heard Lungs clear Right jugular permacath Trace edema - Labs CBC & Chem 7: 04/12/19 07:12 04/12/19 07:12 Labs: Abnormal Lab Results - Last 24 Hours (Table) 04/11/19 04/11/19 04/12/19 Range/Units 17:08 20:19 07:02 RBC (4.30-5.90) m/uL Hgb (13.0-17.5) gm/dL Hct (39.0-53.0) % Sodium (137-145) mmol/L Chloride (98-107) mmol/L BUN (9-20) mg/dL Creatinine (0.66-1.25) mg/dL Glucose (74-99) mg/dL POC Glucose (mg/dL) 229 H 322 H 357 H (75-99) mg/dL Calcium (8.4-10.2) mg/dL Phosphorus (2.5-4.5) mg/dL Albumin (3.5-5.0) g/dL 04/12/19 04/12/19 Range/Units 07:12 07:12 RBC 2.69 L (4.30-5.90) m/uL Hgb 7.2 L (13.0-17.5) gm/dL Hct 22.1 L (39.0-53.0) % Sodium 131 L (137-145) mmol/L Chloride 95 L (98-107) mmol/L BUN 62 H (9-20) mg/dL Creatinine 8.35 H* (0.66-1.25) mg/dL Glucose 332 H (74-99) mg/dL POC Glucose (mg/dL) (75-99) mg/dL Calcium 7.8 L (8.4-10.2) mg/dL Phosphorus 6.0 H (2.5-4.5) mg/dL Albumin 3.2 L (3.5-5.0) g/dL Microbiology - Last 24 Hours (Table) 04/07/19 15:55 Blood Culture - Preliminary Blood No Growth after 96 hours Assessment and Plan Assessment: #1 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 #2 diabetes complicated uncontrolled. #3 hypertension with chronic kidney disease #4 anemia with chronic kidney disease #5 HIV on treatment. #6 proteinuria on urinalysis. Plan: #1 plan hemodialysis Sunday. #2 awaiting placement at outpatient dialysis unit in [place]. #3 avoid nephrotoxic agents and hypotensive episodes
[2019-04-12 17:06] LABS: Glucose,Whole Blood 92 mg/dL (75-99)
[2019-04-12] MEDS: SODIUM CHLORIDE 0.9% 1,000 ML IV SCH (17:46)
[2019-04-12 20:30] LABS: Glucose,Whole Blood 232 mg/dL (75-99)
[2019-04-12] MEDS: ATORVASTATIN 40 MG TAB PO SCH (20:39)
[2019-04-12] MEDS: ACETAMINOPHEN TAB 325 MG TAB PO PRN (20:40)
[2019-04-13 06:41] LABS: Glucose,Whole Blood 257 mg/dL (75-99)
[2019-04-13 07:51] LABS: Basophils % (A) 1 %; Eosinophils # (A) 0.2 k/uL (0-0.7); Eosinophils % (A) 2 %; HCT 20.6 % (39.0-53.0); HGB 7.1 gm/dL (13.0-17.5); Lymphocytes # (A) 1.9 k/uL (1.0-4.8); Lymphocytes % (A) 22 %; MCH 27.4 pg (25.0-35.0); MCHC 34.3 g/dL (31.0-37.0); MCV 80.1 fL (80.0-100.0); Mean Platelet Volume 6.1; Monocytes # (A) 0.8 k/uL (0-1.0); Monocytes % (A) 10 %; Neutrophils # (A) 5.2 k/uL (1.3-7.7); Neutrophils % (A) 62 %; Platelet Count 260 k/uL (150-450); RBC 2.57 m/uL (4.30-5.90); RDW 14.6 % (11.5-15.5); WBC 8.3 k/uL (3.8-10.6)
[2019-04-13 08:01] LABS: Calcium 8.2 mg/dL (8.4-10.2); Potassium 4.2 mmol/L (3.5-5.1); Total Bilirubin 0.2 mg/dL (0.2-1.3); Total Protein 7.1 g/dL (6.3-8.2)
[2019-04-13] MEDS: INSULIN DETEMIR (LEVEMIR) 100 UNIT/ML SYR SQ SCH (08:44)
[2019-04-13] MEDS: INSULIN ASPART (NovoLOG) 100 UNIT/ML VIAL SQ SCH ×4 (08:45→20:14)
[2019-04-13] MEDS: NIFEdipine XL 90 MG TAB.ER.24 PO SCH ×2 (08:45→20:14)
[2019-04-13] MEDS: BUMETANIDE 1 MG TAB PO SCH ×2 (08:45→17:53)
[2019-04-13] MEDS: hydrALAZINE HCL 50 MG TAB PO SCH ×3 (08:45→22:19)
[2019-04-13] MEDS: CARVEDILOL 12.5 MG TAB PO SCH ×2 (08:45→17:56)
[2019-04-13] MEDS: DOVATO PO SCH (08:45)
[2019-04-13] MEDS: PANTOPRAZOLE 40 MG TABLET PO SCH (08:45)
[2019-04-13] MEDS ORDERED: SODIUM FERRIC GLUCONAT-SUCROSE 125 MG in SODIUM CHLORIDE 0.9% 100 ML IVPB ONE (11:00)
--- NOTE | 2019-04-13 11:01 | P.PN ---
Subjective Progress Note Date: 04/13/19 Seen and examined for the follow-up off ESRD. Started on hemodialysis during this admission. No nausea vomiting diarrhea. Objective - Vital Signs Vital signs: Vital Signs Temp 97.8 F 04/12/19 21:00 Pulse 104 H 04/13/19 05:00 Resp 16 04/13/19 07:20 BP 141/82 04/13/19 05:00 Pulse Ox 95 04/13/19 05:00 Intake & Output 04/12/19 04/13/19 04/13/19 18:59 06:59 18:59 Intake Total 950 Output Total 1999 Balance -1050 Intake: Oral 950 Output: Hemodialysis 1999 Other: Voiding Method Toilet Toilet Toilet # Voids 3 2 - Exam No acute distress S1-S2 heard Lungs clear Right jugular permacath Trace edema - Labs CBC & Chem 7: 04/13/19 07:10 04/13/19 07:10 Labs: Abnormal Lab Results - Last 24 Hours (Table) 04/12/19 04/13/19 04/13/19 Range/Units 20:29 06:40 07:10 RBC 2.57 L (4.30-5.90) m/uL Hgb 7.1 L (13.0-17.5) gm/dL Hct 20.6 L (39.0-53.0) % Sodium (137-145) mmol/L Chloride (98-107) mmol/L BUN (9-20) mg/dL Creatinine (0.66-1.25) mg/dL Glucose (74-99) mg/dL POC Glucose (mg/dL) 232 H 257 H (75-99) mg/dL Calcium (8.4-10.2) mg/dL ALT (21-72) U/L Albumin (3.5-5.0) g/dL 04/13/19 Range/Units 07:10 RBC (4.30-5.90) m/uL Hgb (13.0-17.5) gm/dL Hct (39.0-53.0) % Sodium 132 L (137-145) mmol/L Chloride 96 L (98-107) mmol/L BUN 39 H (9-20) mg/dL Creatinine 6.27 H (0.66-1.25) mg/dL Glucose 250 H (74-99) mg/dL POC Glucose (mg/dL) (75-99) mg/dL Calcium 8.2 L (8.4-10.2) mg/dL ALT 19 L (21-72) U/L Albumin 3.0 L (3.5-5.0) g/dL Microbiology - Last 24 Hours (Table) 04/07/19 15:55 Blood Culture - Preliminary Blood No Growth after 120 hours Assessment and Plan Assessment: #1 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 #2 diabetes complicated uncontrolled. #3 hypertension with chronic kidney disease #4 anemia with chronic kidney disease #5 HIV on treatment. #6 proteinuria on urinalysis. Plan: #1 plan hemodialysis tomorrow #2 awaiting placement at outpatient dialysis unit in [place]. #3 avoid nephrotoxic agents and hypotensive episodes
[2019-04-13 11:22] LABS: Glucose,Whole Blood 109 mg/dL (75-99)
--- NOTE | 2019-04-13 11:47 | P.PN ---
Subjective Patient with known HIV chronic kidney disease stage V is initiated on hemodialysis. Patient is visiting here from [place]. Patient will need hemo dialysis set up which can be done on Sunday in [place] after that patient will be discharged. Patient is also being treated for right middle lobe pneumonia with cefepime and levofloxacin and patient is on antiretroviral therapy for HIV. Patient last CD4 count is 134. Patient is diabetic probably type 1 diabetes mellitus uncontrolled blood sugars presently well controlled will continue the same regimen. 02/10/2019 Patient has iron deficiency anemia patient was given 1 unit of IV Iron. Patient will need oral iron supplementation upon discharge. Constitutional: Denied any fatigue denied any fever. Cardio vascular: denied any chest pain, palpitations Gastrointestinal denied any nausea vomiting Pulmonary: Denied any shortness of breath cough Neurologic denied any new focal deficits All inpatient medications were reviewed and appropriate changes in these medications as dictated in the interval history and assessment and plan. Objective - Vital Signs Vital signs: Vital Signs Temp 97.8 F 04/12/19 21:00 Pulse 104 H 04/13/19 05:00 Resp 16 04/13/19 07:20 BP 141/82 04/13/19 05:00 Pulse Ox 95 04/13/19 05:00 Intake & Output 04/12/19 04/13/19 04/13/19 18:59 06:59 18:59 Intake Total 950 Output Total 1999 Balance -1050 Intake: Oral 950 Output: Hemodialysis 1999 Other: Voiding Method Toilet Toilet Toilet # Voids 3 2 - Exam PHYSICAL EXAMINATION: GENERAL: The patient is alert and oriented x3, not in any acute distress. Well developed, well nourished. HEENT: Pupils are round and equally reacting to light. EOMI. No scleral icterus. No conjunctival pallor. Normocephalic, atraumatic. No pharyngeal erythema. No thyromegaly. CARDIOVASCULAR: S1 and S2 present. No murmurs, rubs, or gallops. PULMONARY: Chest is clear to auscultation, no wheezing or crackles. ABDOMEN: Soft, nontender, nondistended, normoactive bowel sounds. No palpable organomegaly. MUSCULOSKELETAL: No joint swelling or deformity. EXTREMITIES: No cyanosis, clubbing, or pedal edema. NEUROLOGICAL: Gross neurological examination did not reveal any focal deficits. SKIN: No rashes. - Labs CBC & Chem 7: 04/13/19 07:10 04/13/19 07:10 Labs: Abnormal Lab Results - Last 24 Hours (Table) 04/12/19 04/13/19 04/13/19 Range/Units 20:29 06:40 07:10 RBC 2.57 L (4.30-5.90) m/uL Hgb 7.1 L (13.0-17.5) gm/dL Hct 20.6 L (39.0-53.0) % Sodium (137-145) mmol/L Chloride (98-107) mmol/L BUN (9-20) mg/dL Creatinine (0.66-1.25) mg/dL Glucose (74-99) mg/dL POC Glucose (mg/dL) 232 H 257 H (75-99) mg/dL Calcium (8.4-10.2) mg/dL ALT (21-72) U/L Albumin (3.5-5.0) g/dL 04/13/19 04/13/19 Range/Units 07:10 11:20 RBC (4.30-5.90) m/uL Hgb (13.0-17.5) gm/dL Hct (39.0-53.0) % Sodium 132 L (137-145) mmol/L Chloride 96 L (98-107) mmol/L BUN 39 H (9-20) mg/dL Creatinine 6.27 H (0.66-1.25) mg/dL Glucose 250 H (74-99) mg/dL POC Glucose (mg/dL) 109 H (75-99) mg/dL Calcium 8.2 L (8.4-10.2) mg/dL ALT 19 L (21-72) U/L Albumin 3.0 L (3.5-5.0) g/dL Microbiology - Last 24 Hours (Table) 04/07/19 15:55 Blood Culture - Preliminary Blood No Growth after 120 hours Assessment and Plan Plan: -End-stage renal disease hemodialysis dependent was initiated on dialysis here chronic chronic nephritis from HIV is a consideration. Patient will resume her dialysis on Sunday after which her hemodialysis will be arranged for him as Sunday and Sunday schedule and will be discharged on Sunday -Type 2 diabetes mellitus blood sugars are not well-controlled because of his diet will not change his insulin regimen patient will be counseled regarding his dietary habits. -HIV: Patient is on antiretroviral therapy last CD4 count 134 -Anemia from chronic kidney disease -Hypertension
[2019-04-13 17:21] LABS: Glucose,Whole Blood 81 mg/dL (75-99)
[2019-04-13] MEDS: SODIUM CHLORIDE 0.9% 1,000 ML IV SCH (17:59)
[2019-04-13 20:13] LABS: Glucose,Whole Blood 135 mg/dL (75-99)
[2019-04-13] MEDS: ATORVASTATIN 40 MG TAB PO SCH (20:14)
[2019-04-14] MEDS: ONDANSETRON 4 MG/2 ML VIAL IVP PRN (06:21)
[2019-04-14 07:29] LABS: Glucose,Whole Blood 449 mg/dL (75-99)
[2019-04-14] MEDS: INSULIN ASPART (NovoLOG) 100 UNIT/ML VIAL SQ SCH ×4 (07:59→20:52)
[2019-04-14] MEDS: INSULIN DETEMIR (LEVEMIR) 100 UNIT/ML SYR SQ SCH (07:59)
[2019-04-14] MEDS: BUMETANIDE 1 MG TAB PO SCH ×2 (08:00→18:09)
[2019-04-14] MEDS: hydrALAZINE HCL 50 MG TAB PO SCH ×3 (08:00→22:40)
[2019-04-14] MEDS: CARVEDILOL 12.5 MG TAB PO SCH ×2 (08:00→18:09)
[2019-04-14] MEDS: NIFEdipine XL 90 MG TAB.ER.24 PO SCH ×2 (08:00→20:52)
[2019-04-14] MEDS: PANTOPRAZOLE 40 MG TABLET PO SCH (08:00)
[2019-04-14] MEDS: DOVATO PO SCH (08:01)
[2019-04-14 11:43] LABS: Glucose,Whole Blood 110 mg/dL (75-99)
[2019-04-14] MEDS ORDERED: hydrALAZINE HCL 20 MG/ML 1 ML VIAL IVP PRN (11:59)
--- NOTE | 2019-04-14 11:59 | P.PN ---
Subjective Patient is seen in follow-up for end-stage renal disease. He was started on hemodialysis this admission. Currently awake and alert. Denies chest pain or shortness of breath. He is awaiting outpatient hemodialysis set up. Vital signs are stable. General: The patient appeared well nourished and normally developed. HEENT: Head exam is unremarkable. Neck is without jugular venous distension. LUNGS: Lungs are clear to auscultation and percussion. Breath sounds decreased. HEART: Rate and Rhythm are regular. First and second heart sounds normal. No murmurs, rubs or gallops. ABDOMEN: Abdominal exam reveals normal bowel sounds. Non-tender and non- distended. No evidence of peritonitis. EXTREMITITES: No clubbing, cyanosis, or edema. Objective - Vital Signs Vital signs: Vital Signs Temp 99.4 F 04/14/19 05:00 Pulse 98 04/14/19 05:00 Resp 16 04/14/19 05:00 BP 192/108 04/14/19 05:00 Pulse Ox 98 04/14/19 05:00 Intake & Output 04/13/19 04/14/19 04/14/19 18:59 06:59 18:59 Intake Total 950 950 Output Total 200 Balance 750 950 Intake: Intake, IV Titration 100 Amount Sodium Ferric Gluconat- 100 Sucrose 125 mg In Sodium Chloride 0.9% 100 ml @ 100 mls/hr IVPB ONCE ONE Rx#:[id number] Oral 850 950 Output: Urine 200 Other: Voiding Method Toilet Toilet # Voids 1 - Labs CBC & Chem 7: 04/13/19 07:10 04/13/19 07:10 Labs: Abnormal Lab Results - Last 24 Hours (Table) 04/13/19 04/14/19 04/14/19 Range/Units 20:11 07:27 11:42 POC Glucose (mg/dL) 135 H 449 H 110 H (75-99) mg/dL Microbiology - Last 24 Hours (Table) 04/07/19 15:55 Blood Culture - Final Blood No Growth after 144 hours Assessment and Plan Plan: Assessment: 1. End-stage renal disease maintained on hemodialysis on Sunday schedule. 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 2. Hypertension with chronic kidney disease. 3. Anemia of chronic kidney disease maintained on Aranesp. 4. Insulin-dependent diabetes mellitus. 5. HIV maintained on antiretroviral therapy. Infectious disease following. Plan: Hemodialysis today. Awaits outpatient hemodialysis set up in [place]. community marketing manager following.
[2019-04-14 17:51] LABS: Glucose,Whole Blood 109 mg/dL (75-99)
[2019-04-14] MEDS: SODIUM CHLORIDE 0.9% 1,000 ML IV SCH (18:09)
[2019-04-14 20:51] LABS: Glucose,Whole Blood 307 mg/dL (75-99)
[2019-04-14] MEDS: ATORVASTATIN 40 MG TAB PO SCH (20:52)
--- NOTE | 2019-04-14 21:30 | P.PN ---
Subjective Progress Note Date: 04/14/19 Patient with known HIV chronic kidney disease stage V is initiated on hemodialysis. Patient is visiting here from [place]. Patient will need hemodialysis set up which can be done on Sunday in [place] after that patient will be discharged. Patient is also being treated for right middle lobe pneumon ia with cefepime and levofloxacin and patient is on antiretroviral therapy for HIV. Patient last CD4 count is 134. Patient is diabetic probably type 1 diabetes mellitus uncontrolled blood sugars presently well controlled will continue the same regimen. 04/14. Pt will go for HD today. He is feeling much better regarding leg swelling and fatigue. He is awaiting outpatient HD setup and plans to return to [place]. Objective - Vital Signs Vital signs: Vital Signs Temp 98.1 F 04/14/19 18:12 Pulse 94 04/14/19 18:12 Resp 18 04/14/19 18:12 BP 158/98 04/14/19 18:12 Pulse Ox 97 04/14/19 12:43 Intake & Output 04/14/19 04/14/19 04/15/19 06:59 18:59 06:59 Intake Total 950 950 Output Total 2500 Balance 950 -1550 Intake: Oral 950 950 Output: Hemodialysis 2500 Other: Voiding Method Toilet Toilet # Voids 1 2 # Bowel Movements 1 - Exam General: well nourished, well developed, NAD. Vitals reviewed Eyes: PERRL, EOMI, conjunctiva normal HENT: normocephalic, mucus membranes moist Neck: supple, no JVD. Right IJ PermCath present Lungs: normal respiratory effort, no wheezes or rales CV: Regular rate and rhythm, no murmur. Peripheral pulses 2+ Abdomen: soft, nondistended, nontender, no organomegaly Skin: warm and dry. - Labs CBC & Chem 7: 04/13/19 07:10 04/13/19 07:10 Labs: Abnormal Lab Results - Last 24 Hours (Table) 04/14/19 04/14/19 04/14/19 Range/Units 07:27 11:42 17:49 POC Glucose (mg/dL) 449 H 110 H 109 H (75-99) mg/dL 04/14/19 Range/Units 20:48 POC Glucose (mg/dL) 307 H (75-99) mg/dL Microbiology - Last 24 Hours (Table) 04/07/19 15:55 Blood Culture - Final Blood No Growth after 144 hours Assessment and Plan (1) ESRD (end stage renal disease) Current Visit: Yes Status: Acute Code(s): N18.6 - END STAGE RENAL DISEASE SNOMED Code(s): 35159347 (2) Acute renal failure (ARF) Current Visit: Yes Status: Acute Code(s): N17.9 - ACUTE KIDNEY FAILURE, UNSPECIFIED SNOMED Code(s): 46770285 (3) HCAP (healthcare-associated pneumonia) Current Visit: Yes Status: Acute Code(s): J18.9 - PNEUMONIA, UNSPECIFIED ORGANISM SNOMED Code(s): 330014204 (4) Type 1 diabetes mellitus Current Visit: Yes Status: Acute Code(s): E10.9 - TYPE 1 DIABETES MELLITUS WITHOUT COMPLICATIONS SNOMED Code(s): 60888625 (5) Anemia in CKD (chronic kidney disease) Current Visit: Yes Status: Acute Code(s): N18.9 - CHRONIC KIDNEY DISEASE, UNSPECIFIED; D63.1 - ANEMIA IN CHRONIC KIDNEY DISEASE SNOMED Code(s): 049475263 (6) HIV (human immunodeficiency virus infection) Current Visit: Yes Status: Acute Code(s): B20 - HUMAN IMMUNODEFICIENCY VIRUS [HIV] DISEASE SNOMED Code(s): 01518305 (7) Hypertension 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 ESRD. Nephrology following. HD MWF. Pt and case management working on outpatient dialysis. Plan for discharge and pt to do dialysis in [place] 2. HTN in CKD. Continue coreg, hydralazine, nifedipine 3. HIV. ID consulted and viral load undetectable. Cont home antiviral 4. T1DM. Continue 22 U levemir and sliding scale 5. Possible HCAP. Abx stopped per ID. Resolved 6. Anemia of CKD. Epo per nephro
[2019-04-15 07:22] LABS: Glucose,Whole Blood 388 mg/dL (75-99)
[2019-04-15] MEDS: hydrALAZINE HCL 50 MG TAB PO SCH ×3 (08:51→21:10)
[2019-04-15] MEDS: DOVATO PO SCH (08:52)
[2019-04-15] MEDS: INSULIN ASPART (NovoLOG) 100 UNIT/ML VIAL SQ SCH ×4 (08:52→21:11)
[2019-04-15] MEDS: CARVEDILOL 12.5 MG TAB PO SCH ×2 (08:52→17:25)
[2019-04-15] MEDS: INSULIN DETEMIR (LEVEMIR) 100 UNIT/ML SYR SQ SCH (08:52)
[2019-04-15] MEDS: BUMETANIDE 1 MG TAB PO SCH ×2 (08:53→17:25)
[2019-04-15] MEDS: NIFEdipine XL 90 MG TAB.ER.24 PO SCH ×2 (08:53→21:10)
[2019-04-15] MEDS: PANTOPRAZOLE 40 MG TABLET PO SCH (09:19)
[2019-04-15 11:55] LABS: Glucose,Whole Blood 92 mg/dL (75-99)
[2019-04-15] MEDS: DARBEPOETIN ALFA 40 MCG/0.4 ML SYRINGE SQ SCH (14:39)
[2019-04-15 17:11] LABS: Glucose,Whole Blood 127 mg/dL (75-99)
--- NOTE | 2019-04-15 17:39 | CDI ---
Documentation Clarification Form Date: 04/15/2019 5:02:02 PM From: Betsy Montesinos Phone: Admit Date: 04/07/2019 5:25:00 PM Patient Name: Emilio Camargo Visit Number: [id number] Discharge Date: ATTENTION: The Clinical Documentation Specialists (CDI) and [facility] Coding Staff appreciate your assistance in clarifying documentation. Please respond to the clarification below the line at the bottom and electronically sign. The CDI & [facility] Coding staff will review the response and follow-up if needed. Please note: Queries are made part of the Legal Health Record. If you have any questions, please contact the author of this message via ITS. Dr. Rico Hansen Conflicting documentation has been found in the medical record: Type 1 diabetes mellitus, Uncontrolled and Hypertension associated with stage 4 CKD due to type 2 diabetes mellitus is documented in your ongoing progress notes. History/Risk Factors: End stage renal disease, Hypertension, HIV, Diabetes mellitus Clinical Indicators: 33-year-old male present with nausea, leg swelling and fatigue and was found to be in acute renal failure. 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 Patient is diabetic probably type 1 diabetes mellitus uncontrolled blood sugars presently well controlled. Initial Blood Sugars: (04/07-04/09) 277, 248, 215, 237, 500, 361, 94, 277 04/15/19 Blood Sugar 388, 127 Treatment: Monitor Blood sugars Continue 22 u Levemir and sliding scale In your opinion, what is the most clinically appropriate diagnosis for this patient? Type 1 diabetes mellitus (Specify if with Hyperglycemia or Hypoglycemia) Type 2 Diabetes mellitus (Specify if with Hyperglycemia or Hypoglycemia) Other explanation of clinical findings Unable to determine (no explanation for clinical findings) (Last Revision: October 2017) Type 1 DM with hyperglycemia MTDD
--- NOTE | 2019-04-15 19:34 | PN ---
PROGRESS NOTE Patient is seen for followup for end-stage renal disease. He is currently maintained on a Sunday, Sunday, Sunday schedule for hemodialysis. At this time we are awaiting insurance approval to maintain outpatient dialysis. Patient however denies any significant complaints. He feels fairly well. This morning blood pressure was 147/91, heart rate 98 per minute. He is afebrile. EXAMINATION OF THE HEART: S1 and S2. EXAMINATION OF LUNGS: Bilateral breath sounds are heard. ABDOMEN: Soft, non-tender. Examination of lower extremities shows no evidence of edema. Labs show potassium 4.2, hemoglobin 7.1 g/dL. ASSESSMENT: 1. End-stage renal disease, on hemodialysis on a Sunday, Sunday, Sunday schedule. 2. Volume overload, currently improved. 3. Hypertension, currently controlled. 4. Anemia of chronic disease, maintained on Aranesp. 5. Type 2 diabetes, maintained on insulin. 6. Migraine headaches, maintained on Imitrex. PLAN: Hemodialysis in a.m. Discharge Planning/family welfare social work professor to arrange for insurance for outpatient hemodialysis. MMODL / IJN: [id number] /
[2019-04-15 20:36] LABS: Glucose,Whole Blood 130 mg/dL (75-99)
[2019-04-15] MEDS: ATORVASTATIN 40 MG TAB PO SCH (21:10)
[2019-04-15] MEDS: SODIUM CHLORIDE 0.9% 1,000 ML IV SCH (21:11)
--- NOTE | 2019-04-15 22:14 | P.PN ---
Subjective He is awaiting insurance authorization for outpatient hemodialysis. He is feeling well today, denies weakness, abdominal distention, shortness of breath. Objective - Vital Signs Vital signs: Vital Signs Temp 98 F 04/15/19 19:34 Pulse 93 04/15/19 19:34 Resp 18 04/15/19 19:34 BP 126/70 04/15/19 19:34 Pulse Ox 100 04/15/19 19:34 Intake & Output 04/15/19 04/15/19 04/16/19 06:59 18:59 06:59 Intake Total 840 1200 Balance 840 1200 Intake: Oral 840 1200 Other: Voiding Method Toilet Toilet # Voids 1 4 - Exam General: well nourished, well developed, NAD. Vitals reviewed Eyes: PERRL, EOMI, conjunctiva normal HENT: normocephalic, mucus membranes moist Neck: supple, no JVD. Right IJ PermCath present Lungs: normal respiratory effort, no wheezes or rales CV: Regular rate and rhythm, no murmur. Peripheral pulses 2+ Abdomen: soft, nondistended, nontender, no organomegaly Skin: warm and dry. - Labs CBC & Chem 7: 04/13/19 07:10 04/13/19 07:10 Labs: Abnormal Lab Results - Last 24 Hours (Table) 04/15/19 04/15/19 04/15/19 Range/Units 07:10 17:03 20:35 POC Glucose (mg/dL) 388 H 127 H 130 H (75-99) mg/dL Assessment and Plan (1) ESRD (end stage renal disease) Current Visit: Yes Status: Acute Code(s): N18.6 - END STAGE RENAL DISEASE SNOMED Code(s): 80936546 (2) Acute renal failure (ARF) Current Visit: Yes Status: Acute Code(s): N17.9 - ACUTE KIDNEY FAILURE, UNSPECIFIED SNOMED Code(s): 73964359 (3) HCAP (healthcare-associated pneumonia) Current Visit: Yes Status: Acute Code(s): J18.9 - PNEUMONIA, UNSPECIFIED ORGANISM SNOMED Code(s): 824718941 (4) Type 1 diabetes mellitus Current Visit: Yes Status: Acute Code(s): E10.9 - TYPE 1 DIABETES MELLITUS WITHOUT COMPLICATIONS SNOMED Code(s): 96495237 (5) Anemia in CKD (chronic kidney disease) Current Visit: Yes Status: Acute Code(s): N18.9 - CHRONIC KIDNEY DISEASE, UNSPECIFIED; D63.1 - ANEMIA IN CHRONIC KIDNEY DISEASE SNOMED Code(s): 271119428 (6) HIV (human immunodeficiency virus infection) Current Visit: Yes Status: Acute Code(s): B20 - HUMAN IMMUNODEFICIENCY VIRUS [HIV] DISEASE SNOMED Code(s): 50679248 (7) 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 ESRD. Nephrology following. HD MWF. Pt and case management working on outpatient dialysis. Plan for discharge and pt to do dialysis in [place] 2. HTN in CKD. Continue coreg, hydralazine, nifedipine 3. HIV. ID consulted and viral load undetectable. Cont home antiviral 4. T1DM. Continue 22 U levemir and sliding scale 5. Possible HCAP. Abx stopped per ID. Resolved 6. Anemia of CKD. Epo per nephro
[2019-04-16 04:08] VITALS: RESP 16; TEMP 98.4
[2019-04-16 07:20] LABS: Glucose,Whole Blood 518 mg/dL (75-99)
[2019-04-16] MEDS: INSULIN ASPART (NovoLOG) 100 UNIT/ML VIAL SQ SCH ×2 (07:53→13:59)
[2019-04-16] MEDS: INSULIN DETEMIR (LEVEMIR) 100 UNIT/ML SYR SQ SCH (07:53)
[2019-04-16 09:16] LABS: Glucose,Whole Blood 254 mg/dL (75-99)
[2019-04-16 11:30] VITALS: PULSE 101
[2019-04-16] MEDS: BUMETANIDE 1 MG TAB PO SCH (11:30)
[2019-04-16] MEDS: DOVATO PO SCH (11:30)
[2019-04-16] MEDS: CARVEDILOL 12.5 MG TAB PO SCH (11:30)
[2019-04-16] MEDS: hydrALAZINE HCL 50 MG TAB PO SCH (11:31)
[2019-04-16] MEDS: NIFEdipine XL 90 MG TAB.ER.24 PO SCH (11:31)
[2019-04-16] MEDS: PANTOPRAZOLE 40 MG TABLET PO SCH (11:31)
[2019-04-16 11:40] LABS: Glucose,Whole Blood 69 mg/dL (75-99)
[2019-04-16 12:30] VITALS: BP 137/84
[2019-04-16 12:40] LABS: Glucose,Whole Blood 93 mg/dL (75-99)
--- NOTE | 2019-04-16 20:23 | PN ---
PROGRESS NOTE Patient is seen on hemodialysis. He is tolerating his treatment well. At this point, patient states that he will most likely return back to [place] to establish hemodialysis in his hometown. He denies any significant complaints. PHYSICAL EXAMINATION: On examination, blood pressure this morning was 150/86, heart rate of 101 per minute, patient is afebrile. Examination of the heart S1, S2. Examination of the lungs, bilateral breath sounds are heard. Abdomen is soft, nontender. Examination of the lower extremities shows no significant edema. CHHA exam grossly intact. LABS: Sodium of 132 on April 13, BUN 39, serum creatinine 6.27. I will obtain labs for tomorrow. ASSESSMENT: 1. End-stage renal disease secondary to chronic glomerular nephritis. Started on hemodialysis. The patient is maintained on a Sunday, Sunday, Sunday schedule for now. It seems that the patient's insurance is not covering outpatient dialysis. However, he is going back to [place]. He is advised to follow up with his primary clinical dietitian in the next 1 or 2 days post discharge so that he can be assessed regarding the urgency for need of hemodialysis. Hopefully patient can wait 4-5 days. He does have good urine output. 2. Hypertension. Blood pressure is still uncontrolled. The patient is maintained on hydralazine. He is on Coreg. I will add lisinopril now that he has started on dialysis. Medications can be adjusted down the road as outpatient. 3. Volume overload now improved. PLAN: 1. Maintain patient on a Sunday, Sunday, Sunday schedule for hemodialysis. 2. Add lisinopril and if patient is discharged, he is advised to follow up with his primary clinical dietitian 1-2 days post discharge to assess need for hemodialysis if his outpatient set up is going to take more than a week. MMODL / IJN: [id number] /
[2019-04-17] MEDS ORDERED: LISINOPRIL 10 MG TAB PO SCH (09:00)
== END 2019-04-16 18:15 | disposition home or self-care (01) | DRG 974 ==
LOC: EC 13:48 → 3NMEDONC 17:25
PROVIDERS: ADMIT Family Medicine; ATTEND Family Medicine
PROC: 02HV33Z Insertion of Infusion Device into Superior Vena Cava, Percutaneous Approach (ICD-10-PCS; principal; 2019-04-09)
PROC: 5A1D70Z Performance of Urinary Filtration, Intermittent, Less than 6 Hours Per Day (ICD-10-PCS; 2019-04-09)
DX: B20 Human immunodeficiency virus [HIV] disease (principal); B59 Pneumocystosis; N18.6 End stage renal disease; N17.9 Acute kidney failure, unspecified; I12.0 Hypertensive chronic kidney disease with stage 5 chronic kidney disease or end stage renal disease; G43.909 Migraine, unspecified, not intractable, without status migrainosus; E10.22 Type 1 diabetes mellitus with diabetic chronic kidney disease; E10.42 Type 1 diabetes mellitus with diabetic polyneuropathy; E10.65 Type 1 diabetes mellitus with hyperglycemia; D63.1 Anemia in chronic kidney disease; D50.9 Iron deficiency anemia, unspecified; E78.5 Hyperlipidemia, unspecified; E87.5 Hyperkalemia; E87.70 Fluid overload, unspecified; K21.9 Gastro-esophageal reflux disease without esophagitis; Y95 Nosocomial condition; Z79.4 Long term (current) use of insulin; Z79.82 Long term (current) use of aspirin; Z79.899 Other long term (current) drug therapy; Z99.2 Dependence on renal dialysis; Z88.0 Allergy status to penicillin
CPT/HCPCS: 36415; 36571; 71045; 71046; 76937; 77001; 80048; 80053; 81001; 83036; 83540; 83550; 83735; 83880; 84100; 84484; 85025; 85610; 85730; 86360; 86704; 86706; 87040; 87340; 87536; 87901; 90935; 93005; 94640; 94760; 96365; 96366; 96367; 99285

== ENCOUNTER 2023-09-13 16:37 | Emergency (ER) | payer OTHER ==
[2023-09-13 17:03] VITALS: TEMP 97.9
[2023-09-13] MEDS: ACETAMINOPHEN TAB 500 MG TAB PO STA (17:29)
--- NOTE | 2023-09-13 18:08 | XR ---
EXAMINATION TYPE: XR chest 2V DATE OF EXAM: 09/13/2023 COMPARISON: 04/08/2019 INDICATION: Pleuritic chest pain TECHNIQUE: Frontal and lateral views of the chest are obtained. FINDINGS: The heart size is normal. The pulmonary vasculature is normal. The lungs are clear. IMPRESSION: 1. No acute pulmonary process.
[2023-09-13 19:37] LABS: Basophils # (A) 0.1 k/uL (0-0.2); Basophils % (A) 1 %; Eosinophils # (A) 0.2 k/uL (0-0.7); Eosinophils % (A) 3 %; HCT 38.4 % (39.0-53.0); Lymphocytes # (A) 1.8 k/uL (1.0-4.8); Lymphocytes % (A) 24 %; MCH 34.5 pg (25.0-35.0); MCHC 33.8 g/dL (31.0-37.0); MCV 102.2 fL (80.0-100.0); Macrocytosis Slight; Monocytes # (A) 0.8 k/uL (0-1.0); Monocytes % (A) 10 %; Neutrophils # (A) 4.4 k/uL (1.3-7.7); Neutrophils % (A) 59 %; Platelet Count 264 k/uL (150-450); RBC 3.76 m/uL (4.30-5.90); RDW 15.1 % (11.5-15.5); WBC 7.5 k/uL (3.8-10.6)
--- NOTE | 2023-09-13 19:41 | ED ---
SOB HPI - General Chief Complaint: Shortness of Breath Stated Complaint: PAIN IN LEFT LUNG Time Seen by Provider: 09/13/23 17:03 Source: patient Mode of arrival: ambulatory Limitations: no limitations - History of Present Illness Initial Comments: This is a 37-year-old male presenting with chief complaint of sharp left-sided chest wall pain. Patient has a stabbing pain near his left shoulder blade. This worsens with deep inspiration and movement. Was present yesterday, however today the pain felt worse which prompted him to seek evaluation. He is having no shortness of breath. No other pain. No numbness or tingling. No weakness. No nausea, vomiting, abdominal pain. No diaphoresis. No cough, congestion, sore throat, fever, chills. Patient receives dialysis. - Related Data Home Medications Medication Instructions Recorded Confirmed Glucagon Emergency Kit 1 mg IM ONCE PRN 04/03/19 09/13/23 carvediloL [Coreg] 25 mg PO BID 04/03/19 09/13/23 diphenhydrAMINE [Benadryl] 50 mg PO DAILY PRN 04/03/19 09/13/23 Calcium Acetate [Phoslo] 667 mg PO BID-W/MEALS 09/13/23 09/13/23 Cholecalciferol (Vitamin D3) 50 mcg PO DAILY 09/13/23 09/13/23 [Vitamin D3 (50 Mcg = 2000 Iu)] Cinacalcet [Sensipar] 30 mg PO TUTHFR 09/13/23 09/13/23 Dolutegravir Sodium/Lamivudine 1 tab PO DAILY 09/13/23 09/13/23 [Dovato 50-300 mg Tablet] Folic Acid/Vit B Complex and C 0.8 mg PO DAILY 09/13/23 09/13/23 [Nephro-Ron Tablet] Insulin Glargine,Hum.rec.anlog 14 units SQ DIRECTED 09/13/23 09/13/23 [Lantus Solostar Pen] Insulin Lispro [humaLOG Kwikpen] See Protocol SQ AC-TID 09/13/23 09/13/23 NIFEdipine XL [Procardia XL] 60 mg PO BID 09/13/23 09/13/23 calcitrioL 2 mcg PO DAILY 09/13/23 09/13/23 metOLazone [Zaroxolyn] 5 mg PO DAILY 09/13/23 09/13/23 Previous Rx's Medication Instructions Recorded Cyclobenzaprine [Flexeril] 5 mg PO HS PRN #5 tab 09/13/23 Lidocaine 5% Patch [Lidoderm 5% 1 patch TOPICAL DAILY PRN #30 patch 09/13/23 Patch] Allergies Allergy/AdvReac Type Severity Reaction Status Date / Time Penicillins Allergy Rash/Hives Verified 09/13/23 20:55 Review of Systems ROS Statement: Those systems with pertinent positive or pertinent negative responses have been documented in the HPI. ROS Other: All systems not noted in ROS Statement are negative. 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 History of Any Multi-Drug Resistant Organisms: None Reported Past Surgical History: No Surgical Hx Reported Additional Past Surgical History / Comment(s): Kidney biopsy without anesthesia. Additional Past Anesthesia/Blood Transfusion Reaction / Comment(s): Pt has never had anesthesia. He has had blood transfusion-no reaction. Past Psychological History: No Psychological Hx Reported Past Alcohol Use History: None Reported Past Drug Use History: None Reported - Past Family History Father History Unknown: Yes Mother Family Medical History: No Reported History Additional Family Medical History / Comment(s): Mother is healthy. General Exam Limitations: no limitations General appearance: alert, in no apparent distress Head exam: Present: atraumatic, normocephalic Eye exam: Present: normal appearance Neck exam: Present: normal inspection Respiratory exam: Present: normal lung sounds bilaterally. Absent: respiratory distress, wheezes, rales, rhonchi, stridor Cardiovascular Exam: Present: normal rhythm, tachycardia, normal heart sounds. Absent: systolic murmur, diastolic murmur, rubs, gallop, clicks Extremities exam: Present: pedal edema (Patient has equal bilateral 1+ edema to the lower extremities) Neurological exam: Present: alert, oriented X3 Psychiatric exam: Present: normal affect, normal mood Skin exam: Present: warm, dry Course Vital Signs 09/13/23 09/13/23 16:57 21:29 Temperature 97.9 F Pulse Rate 114 H 93 Respiratory 20 18 Rate Blood Pressure 165/97 179/85 O2 Sat by Pulse 99 98 Oximetry Medical Decision Making - Medical Decision Making Was pt. sent in by a medical professional or institution (MAURIZIO Cortes, [employer]CRA[employer] DES[employer] ENGINEER, urgent care, hospital, or residential...) When possible be specific @ -No Did you speak to anyone other than the patient for history (EMS, parent, family, police, friend...)? What history was obtained from this source @ -No Did you review nursing and triage notes (agree or disagree)? Why? @ -I reviewed and agree with nursing and triage notes Were old charts reviewed (outside hosp., previous admission, EMS record, old EKG, old radiological studies, urgent care reports/EKG's, residential records)? Report findings @ -No old charts were reviewed Differential Diagnosis (chest pain, altered mental status, abdominal pain women, abdominal pain men, vaginal bleeding, weakness, fever, dyspnea, syncope, headache, dizziness, GI bleed, back pain, seizure, CVA, palpatations, mental h ealth, musculoskeletal)? @ -MDM Differential Chest Pain: Stable Angina, Unstable Angina, STEMI, NSTEMI Aortic Dissection, Pneumothorax, Musculoskeletal, Esophageal Spasm GERD, Cholecystitis, Pancreatitis, Zoster This is not meant to be an all-inclusive list. EKG interpreted by me (3pts min.). @ -EKG shows sinus tachycardia ventricular rate 104. MA interval 185. QRS 101. QT 368. QTc 428. Signs of early repolarization seen in leads V1 through V4 X-rays interpreted by me (1pt min.). @ -Chest x-ray shows no acute pulmonary process CT interpreted by me (1pt min.). @ -None done U/S interpreted by me (1pt. min.). @ -None done What testing was considered but not performed or refused? (CT, X-rays, U/S, labs)? Why? @ -None What meds were considered but not given or refused? Why? @ -None Did you discuss the management of the patient with other professionals (professionals i.e. MAURIZIO Cortes, AIRCRAFT DESIGN ENGINEER, lab, RT, psych nurse, elementary school social worker, resource agent, teacher, personnel training officer, behavioral health case manager)? Give summary @ -No Was smoking cessation discussed for >3mins.? @ -No Was critical care preformed (if so, how long)? @ -No Were there social determinants of health that impacted care today? How? (H omelessness, low income, unemployed, alcoholism, drug addiction, transportation, low edu. Level, literacy, decrease access to med. care, group home, rehab)? @ -No Was there de-escalation of care discussed even if they declined (Discuss DNR or withdrawal of care, Hospice)? DNR status @ -No What co-morbidities impacted this encounter? (DM, HTN, Smoking, COPD, CAD, Cancer, CVA, ARF, Chemo, Hep., AIDS, mental health diagnosis, sleep apnea, morbid obesity)? @ -None Was patient admitted / discharged? Hospital course, mention meds given and route, prescriptions, significant lab abnormalities, going to OR and other pertinent info. @ -37-year-old male presenting with chief complaint of sharp pleuritic chest wall pain. Started yesterday. History and physical exam are conducted. EKG shows sinus tachycardia with signs of early repolarization. Negative D-dimer and troponin. Glucose 539, patient took 14 units of his own Humalog here in the ER. Creatinine 7.89, patient is on dialysis. He is negative for influenza, RSV, COVID. Chest x-ray shows no acute process. Likely musculoskeletal pain. Patient is educated on today's findings and supportive management at home. Discharge. Follow-up with PCP. Report back to ER with any new or worsening symptoms. Discussed return parameters and answered all questions. Patient conveyed verbal understanding and agreed to the plan. I discussed this case in detail with my attending Dr. Mclaughlin Undiagnosed new problem with uncertain prognosis? @ -No Drug Therapy requiring intensive monitoring for toxicity (Heparin, Nitro, Insulin, Cardizem)? @ -No Were any procedures done? @ -No Diagnosis/symptom? @ -Chest wall pain Acute, or Chronic, or Acute on Chronic? @ -Acute Uncomplicated (without systemic symptoms) or Complicated (systemic symptoms)? @ -Uncomplicated Side effects of treatment? @ -No Exacerbation, Progression, or Severe Exacerbation? @ -No Poses a threat to life or bodily function? How? (Chest pain, [place], [place], pneumonia, PE, COPD, DKA, ARF, appy, cholecystitis, CVA, Diverticulitis, Homicidal, Suicidal, threat to staff... and all critical care pts) @ -Unlikely - Lab Data Result diagrams: 09/13/23 18:30 09/13/23 18:30 Lab Results 09/13/23 09/13/23 09/13/23 Range/Units 17:27 18:30 18:30 WBC 7.5 (3.8-10.6) k/uL RBC 3.76 L (4.30-5.90) m/uL Hgb 13.0 (13.0-17.5) gm/dL Hct 38.4 L (39.0-53.0) % MCV 102.2 H (80.0-100.0) fL MCH 34.5 (25.0-35.0) pg MCHC 33.8 (31.0-37.0) g/dL RDW 15.1 (11.5-15.5) % Plt Count 264 (150-450) k/uL MPV 9.0 Neutrophils % 59 % Lymphocytes % 24 % Monocytes % 10 % Eosinophils % 3 % Basophils % 1 % Neutrophils # 4.4 (1.3-7.7) k/uL Lymphocytes # 1.8 (1.0-4.8) k/uL Monocytes # 0.8 (0-1.0) k/uL Eosinophils # 0.2 (0-0.7) k/uL Basophils # 0.1 (0-0.2) k/uL Macrocytosis Slight D-Dimer 0.43 (<0.60) mg/L FEU Sodium (137-145) mmol/L Potassium (3.5-5.1) mmol/L Chloride (98-107) mmol/L Carbon Dioxide (22-30) mmol/L Anion Gap mmol/L BUN (9-20) mg/dL Creatinine (0.66-1.25) mg/dL Est GFR (CKD-EPI)AfAm (>60 ml/min/1.73 sqM) Est GFR (CKD-EPI)NonAf (>60 ml/min/1.73 sqM) Glucose (74-99) mg/dL POC Glucose (mg/dL) (70-110) mg/dL POC Glu [employer] Sales Representative ID Calcium (8.4-10.2) mg/dL Total Bilirubin (0.2-1.3) mg/dL AST (17-59) U/L ALT (4-49) U/L Alkaline Phosphatase (38-126) U/L Troponin I (0.000-0.034) ng/mL Total Protein (6.3-8.2) g/dL Albumin (3.5-5.0) g/dL Influenza Type A (PCR) Not Detected (Not Detectd) Influenza Type B (PCR) Not Detected (Not Detectd) RSV (PCR) Not Detected (Not Detectd) SARS-CoV-2 (PCR) Not Detected (Not Detectd) 09/13/23 09/13/23 09/13/23 Range/Units 18:30 18:30 21:25 WBC (3.8-10.6) k/uL RBC (4.30-5.90) m/uL Hgb (13.0-17.5) gm/dL Hct (39.0-53.0) % MCV (80.0-100.0) fL MCH (25.0-35.0) pg MCHC (31.0-37.0) g/dL RDW (11.5-15.5) % Plt Count (150-450) k/uL MPV Neutrophils % % Lymphocytes % % Monocytes % % Eosinophils % % Basophils % % Neutrophils # (1.3-7.7) k/uL Lymphocytes # (1.0-4.8) k/uL Monocytes # (0-1.0) k/uL Eosinophils # (0-0.7) k/uL Basophils # (0-0.2) k/uL Macrocytosis D-Dimer (<0.60) mg/L FEU Sodium 131 L (137-145) mmol/L Potassium 4.8 (3.5-5.1) mmol/L Chloride 87 L (98-107) mmol/L Carbon Dioxide 24 (22-30) mmol/L Anion Gap 20 mmol/L BUN 42 H (9-20) mg/dL Creatinine 7.89 H* (0.66-1.25) mg/dL Est GFR (CKD-EPI)AfAm 9 (>60 ml/min/1.73 sqM) Est GFR (CKD-EPI)NonAf 8 (>60 ml/min/1.73 sqM) Glucose 539 H* (74-99) mg/dL POC Glucose (mg/dL) 434 H (70-110) mg/dL POC Glu [employer] Sales Representative ID Nora Mckeon Calcium 8.7 (8.4-10.2) mg/dL Total Bilirubin 0.6 (0.2-1.3) mg/dL AST 48 (17-59) U/L ALT 78 H (4-49) U/L Alkaline Phosphatase 128 H (38-126) U/L Troponin I 0.025 (0.000-0.034) ng/mL Total Protein 8.2 (6.3-8.2) g/dL Albumin 4.7 (3.5-5.0) g/dL Influenza Type A (PCR) (Not Detectd) Influenza Type B (PCR) (Not Detectd) RSV (PCR) (Not Detectd) SARS-CoV-2 (PCR) (Not Detectd) Disposition Clinical Impression: Chest wall pain Disposition: HOME SELF-CARE Condition: Good Instructions (If sedation given, give patient instructions): Pleurisy (ED), Muscle Spasm (ED) Additional Instructions: Follow-up with PCP. Report back to ER with any new or worsening symptoms. Prescriptions: Cyclobenzaprine [Flexeril] 5 mg PO HS PRN #5 tab PRN Reason: Pain Lidocaine 5% Patch [Lidoderm 5% Patch] 1 patch TOPICAL DAILY PRN #30 patch PRN Reason: pain Is patient prescribed a controlled substance at d/c from ED?: No Referrals: Teo Lowry DO [Primary Care Provider] - 1-2 days Time of Disposition: 20:53
[2023-09-13 20:07] LABS: ALT 78 U/L (4-49); AST 48 U/L (17-59); African American GFR (CKD) 9 (>60 ml/min/1.73 sqM); Albumin 4.7 g/dL (3.5-5.0); Alkaline Phosphatase 128 U/L (38-126); Anion Gap 20 mmol/L; Blood Urea Nitrogen 42 mg/dL (9-20); Calcium 8.7 mg/dL (8.4-10.2); Carbon Dioxide 24 mmol/L (22-30); Chloride 87 mmol/L (98-107); Non-African American GFR(CKD) 8 (>60 ml/min/1.73 sqM); Potassium 4.8 mmol/L (3.5-5.1); Sodium 131 mmol/L (137-145); Total Bilirubin 0.6 mg/dL (0.2-1.3); Total Protein 8.2 g/dL (6.3-8.2)
[2023-09-13 20:27] LABS: Glucose 539 mg/dL (74-99)
[2023-09-13] MEDS ORDERED: INSULIN REGULAR 100 UNIT/ML VIAL (IM/SQ) SQ STA (21:14)
[2023-09-13] MEDS: LIDOCAINE 4% PATCH TOPICAL ONE (21:22)
[2023-09-13 21:26] LABS: Glucose,Whole Blood 434 mg/dL (70-110)
[2023-09-13 21:53] VITALS: BP 179/85; PULSE 93; RESP 18
== END 2023-09-13 21:29 | disposition home or self-care (01) ==
LOC: EC 16:37
DX: R07.89 Other chest pain (principal); R00.0 Tachycardia, unspecified; E11.9 Type 2 diabetes mellitus without complications; I10 Essential (primary) hypertension; Z79.4 Long term (current) use of insulin; Z79.899 Other long term (current) drug therapy; Z88.0 Allergy status to penicillin; Z20.822 Contact with and (suspected) exposure to COVID-19
CPT/HCPCS: 36415; 71046; 80053; 84484; 85025; 85379; 87636; 93005; 99285